=== PATIENT | female | born 1960 | race African-American/Black ===

== ENCOUNTER 2016-07-26 13:12 | Inpatient (IN) ==
--- NOTE | 2016-07-26 13:58 | Emergency Department Note ---
Arrival - Arrival Chief Complaint: Extremity Problem Stated Complaint: no feeling in left foot ED Nursing Triage Note: C/O COLD AND NUMB LEFT LOWER EXTREMITY WITH ONSET 2 DAYS AGO. PT STATES SHE WAS SEEN IN ED ON WEDNESDAY. COULD NOT LOCATE PULSE IN TRIAGE Mode of Arrival: Wheelchair Limitations: No Limitations Source: Patient - History of Present Illness HPI Narrative: This 54-year-old black female presents 36 hours post last visit to our ER. At that time I evaluated her for possible left lumbar radiculopathy just hours after the patient was given the same diagnoses at [facility]. At the time of my evaluation the patient was quite hysterical with little reasonable history obtained on that visit with concern her emotional state was secondary to medications given at [facility] or illicit drug use. At that time, evaluation of the leg was gross with the only observations made, being the leg to the foot was warm with motor activity intact. Because of the patient's kicking and screaming at the time of exam, evaluation of the pulses was impossible. Currently she complains of numbness and coolness in the left lower leg and foot with inability to move the foot or walk. She is in no acute medical distress currently and is quite calm emotionally on this visit. Onset (ago): day(s) (patient presents 3 days post-onset of symptoms) Consistency: constant Date of Last Menstrual Period: MENAPAUSE Allergies/Adverse Reactions: Allergies Allergy/AdvReac Type Severity Reaction Status Date / Time No Known Allergies Allergy Unverified 07/24/16 23:28 Home Medications: Home Medications Medication Instructions Recorded Confirmed Type Indomethacin Cap [Indocin Cap] 25 mg PO TID #30 capsule 07/25/16 07/26/16 Rx Tizanidine HCl [Zanaflex] 2 mg PO Q6H #40 capsule 07/25/16 07/26/16 Rx predniSONE TAB [PredniSONE] 20 mg PO DAILY #15 tablet 07/25/16 07/26/16 Rx Hydrocodone/Acetaminophen 1 each PO Q4H PRN 07/26/16 07/26/16 History [Hydrocodon-Acetaminophen 5-325] Review of System - Review of System 12 point system: reviewed and no additional remarkable complaints except as stated - Review of System Constitutional: Present: as per HPI Musculoskeletal: Present: as per HPI Medical,Surgical,& Family Hx - Family History Family History: Reports;: Family Cancer, Family Diabetes, Family Heart Disease, Family Hypertension, Family Stroke - Social History Smoking Status: Never smoker Frequency of Alcohol Use: None Type of Drug Use: None Exam Physical Examination: GENERAL: Obese black female in no acute distress. HEENT: Normocephalic. No trauma. Moist mucous membranes. EOMI. PERRLA. NECK: Supple. No adenopathy. CARDIAC: Regular. No murmurs. CHEST: Clear to auscultation. No respiratory distress. ABDOMEN: Soft. Nontender. Active bowel sounds. EXTREMITIES: No trauma. No pedal edema. Reduced pulses and coolness bilaterally to both lower extremities. Left foot does appear to be mottled with no capillary refill and inability to move the foot on command SKIN: No diaphoresis. No rash. NEURO: Alert. Oriented 3. Motor, sensory, vibratory intact. No focal deficits. Vital Signs: Vital Signs Temperature 97.5 F L 07/26/16 13:30 Pulse Rate 109 H 07/26/16 17:00 Respiratory Rate 20 07/26/16 17:00 Blood Pressure 126/94 07/26/16 17:00 O2 Sat by Pulse Oximetry 100 07/26/16 17:00 Course - Reevaluation(s) Reevaluation #1: Patient advised of need for surgical intervention for arterial occlusive disease of the left leg - Consultations Consultation #1: Patient seen by both Dr. reed and Dr. Farfan who will admit the patient for surgical intervention of the left lower extremity arterial occlusive disease. Results - Labs CBC & BMP: 07/26/16 14:19 07/26/16 14:19 Labs: I have reviewed the laboratory and noted the elevated white blood cell count, the elevated LFTs, and the greatly elevated total CK. Likewise on urine exam was noted hematuria as well as positivity for opiates, cocaine, and THC on UDS. - Diagnostic Findings Procedure: CT: image reviewed by me, report reviewed by me (CTA left lower extremity reveals near occlusive thrombus of the left common and external iliacs.) Disposition Clinical Impression: left lower extremity arterial occlusion Case discussed with: patient, patient's family Disposition: Still a Patient Condition: Guarded Time of Disposition: 17:32
[2016-07-26 14:39] LABS: Basophils % 0.1 % (0.0-0.8); Hematocrit 50.1 VOL% (35.7-47.0); Hemoglobin 17.3 GM/DL (12.0-16.0); Immature Granulocytes % 0.4 %; Immature Granulocytes Absolute 0.06 #; Mean Corpuscular HGB Conc 34.5 GM/DL (32-36); Mean Corpuscular Hemoglobin 31 PG (27-34); Mean Platelet Volume 10.4 FL (9.6-12.0); Monocytes # 1.5 10*3/uL (0.11-0.8); Monocytes % 10.4 % (1.7-12.7); Neutrophils # 10.4 10*3/uL (1.4-7.4); Neutrophils % 75.1 % (38.7-73.9); Platelet Count 183 10*3/uL (130-400); Red Blood Count 5.63 10*6/uL (3.8-5.5); Red Cell Distribution Width 14.2 % (9.3-17.3); White Blood Count 13.9 10*3/uL (4.5-13.71)
[2016-07-26 14:49] LABS: INR 1.3; PT Patient Result 13.4 SECS; Partial Thromboplastin Time 29.7 SECS (0-40)
[2016-07-26 15:43] LABS: Apearance,Urine CLOUDY (Clear); Bilirubin,Urine Negative (Negative); Blood, Urine Large mg/dL (Negative); Glucose,Urine (UA) Negative (Negative); Ketones,Urine Negative (Negative); Nitrite,Urine Negative (Negative); Protein,Urine >=500 MG/DL; RBC,Urine 6 /HPF (0-4); Urine Color Yellow (Yellow); Urine Specific Gravity 1.049 (1.001-1.035); Urine Urobilinogen < 2.0 EU/DL (0.2-1.0); WBC,Urine 7 /HPF (0-6)
[2016-07-26 15:48] LABS: Barbiturates Screen,Urine Negative (Negative); Benzodiazepines Screen,Urine Negative (Negative); Cannabinoid Screen,Urine Positive (Negative); Opiate Screen,Urine Positive (Negative); Phencyclidine Screen,Urine Negative (Negative)
[2016-07-26 15:51] LABS: Alanine Aminotransferase 184 U/L (13-56); Albumin 1.6 G/DL (3.4-5.0); Alkaline Phosphatase 105 U/L (45-117); Aspartate Amino Transferase 667 U/L (0-37); Bilirubin,Total < 0.39 MG/DL (0.2-1.0); Blood Urea Nitrogen 39 MG/DL (7-18); Calcium 7.6 MG/DL (8.5-10.1); Glucose 102 MG/DL (74-106); Osmolality,Calculated 274.4 MOS/KG (273-304); Potassium 4.7 MMOL/L (3.5-5.1); Sodium 133 MMOL/L (136-145); Total Protein 6.1 G/DL (6.4-8.3)
[2016-07-26 15:52] LABS: Troponin I Only < 0.015 NG/ML (0.00-0.045)
--- NOTE | 2016-07-26 16:12 | CT Report ---
CT angio abdomen/femoral Indication: Cold left foot. CT ANGIOGRAM ABDOMINAL AORTA WITH BILATERAL LOWER EXTREMITY RUNOFF DLP: 799 mGy*cm Comparison: None. Technique: Axial thin cut CT images were obtained from the dome of the diaphragm through the feet during the arterial phase of contrast injection. 3-D vascular MIPS reconstructions and multiplanar reformats were evaluated. Omnipaque 350, 120 cc administered. Arteriogram: The aorta, right common and external iliac, right femoral, popliteal and tibioperoneal system is widely patent. There is an eccentric filling defect within the distal left common iliac and proximal external iliac artery with some fluoroscopy the periphery of the thrombus. Left common femoral and SFA are patent to Guzman's canal. At Guzman's canal, there is abrupt termination of flow in the left SFA with occlusion of the popliteal artery noted. Mid calf, reconstitution of the posterior tibialis arteries noted although the contributing vessels are not identified. The anterior tibialis and peroneal arteries do not opacify. Abdomen: Normal heart size. Clear lung bases. Gallbladder is thickwalled and edematous appearing. Liver is hypodense. Spleen, pancreas, adrenal glands and kidneys appear unremarkable. There may be a nonobstructing 4 mm left kidney stone present. No bowel obstruction. Pelvis: Uterus is enlarged with a mass in the right side measuring 68 x 56 mm. Urinary bladder and rectosigmoid colon are within normal limits. Impression: 1. Near occlusive thrombus within the left common iliac and external iliac arteries. Left common femoral artery and SFA are patent. At Guzman's canal, occlusion of the distal SFA and popliteal artery noted with severely limited reconstitution of the left posterior tibialis artery mid calf. 2. Gallbladder wall thickening and edema, suspicious for cholecystitis. 3. Fatty infiltration of liver. 4. Possible nonobstructing left kidney stone. PROCEDURE INTERPRETED AT [facility] DEPARTMENT OF RADIOLOGY Final Report Signed by: Bernardo Hinton M.D.
[2016-07-26] MEDS ORDERED: HYDROmorphone 2 MG/1 ML VIAL IV STA (16:24)
[2016-07-26] MEDS ORDERED: ONDANSETRON 4 MG/2 ML VIAL IV STA (16:24)
[2016-07-26] MEDS ORDERED: HYDROmorphone 2 MG/1 ML VIAL ONE ×2 (16:34→20:13)
[2016-07-26] MEDS ORDERED: ONDANSETRON 4 MG/2 ML VIAL ONE (16:35)
--- NOTE | 2016-07-26 16:42 | EKG Report ---
Stationary ECG Study [facility] ER Test Date: 07/26/2016 4:40:25 PM Pat Name: KELLEN MARLOW Department: Room: 129 Gender: F Design Project Manager: : 1960 Requested by: Channing Adames Order Number: [id number] Jocelyn MD: ROBERT PAREDES Intervals [place] Rate: 86 P: 63 [place]: 120 QRS: 48 QRSD: 78 T: -9 QT: 336 QTc: 380 Interpretive Statements SINUS RHYTHM Electronically Signed On 07-27-16 12:32:17 DIRECTOR [employer]IENT [employer]CIAL SERVICES by ROBERT PAREDES [email or web address]
--- NOTE | 2016-07-26 17:02 | General Surg History&Physical ---
Assessment and Plan (1) Peripheral arterial occlusive disease Status: Acute Assessment and plan: This patient appears to have acute limb ischemia of the left foot. She has an occlusion at Guzman's canal with minimal reconstitution in her above ankle posterior tibial artery. There is also an occlusive process in the common iliac artery that reconstitutes in the external iliac artery above the inguinal ligament. The patient has no motor or sensory function in her foot and I have discussed this all with Dr. Farfan who is planning on coming to see the patient shortly. I'm going to give her a heparin bolus in the ER 80 units per kilogram to prevent progression of her ischemic changes and her arterial clot disease. I will follow up with Dr. Farfan after he sees the patient regarding any further plans of care. The dilemma will be whether to attempt revascularization of her foot given that she has such advanced ischemic changes. The patient did have a U tox is positive for cocaine and this certainly could've contributed to her arterial ischemic process. (2) Thickening of wall of gallbladder Status: Acute Assessment and plan: The patient does also have thickening of her gallbladder wall and abnormal LFTs but she is completely nontender on examination. With lack of any clinical features to suggest cholecystitis, we will just watch this for now she may need to have this addressed if she develops symptoms. We will treat her with antibiotics in the meantime to cover any subclinical infection here. There are no gallstones on her CT scan. I wonder if this could be part of a cocaine- induced vasospasm that has caused ischemia to the gallbladder. We will watch this for now. History of Present Illness Chief complaint: left foot pain History of present illness: Ms. Velasquez is a 55 year old female with no significant past medical or surgical history who presents to the hospital with about 36 hour history of worsening left leg pain. The pain started in her left buttock and radiated down her leg and initially she was seen and diagnosed with sciatica or lumbar radiculopathy. She went to [facility] on Wednesday earlier in the day and then came to [facility] later that day. Yesterday morning she developed pain in her left foot and she developed numbness and tingling at that time. She stayed at home yesterday but presented back to the ER today for evaluation. She states that she cannot move her foot now and she has no sensation when being examined but she has burning type nerve pain all across her foot and in her lower leg. She was evaluated in the ER with lab work as well as CT angiogram which revealed occlusion of the common iliac just proximal to the bifurcation of the internal and a sternal iliac arteries with reconstitution of the external iliac artery above the inguinal ligament. There is then also an abrupt cutoff at Guzman's canal with minimal reconstitution in the posterior tibial artery above the ankle. The patient is afebrile. An EKG was obtained and demonstrates sinus rhythm. There is no arrhythmias seen. The patient's urine tox screen was positive for cocaine. She denies any drug use other than marijuana couple weeks ago and denies any tobacco use. The patient was noted to have a transaminitis and thickening of her gallbladder wall on CT scan but she has no abdominal pain, nausea, or vomiting whatsoever. Home Medications Medication Instructions Recorded Confirmed Type Indomethacin Cap [Indocin Cap] 25 mg PO TID #30 capsule 07/25/16 07/26/16 Rx Tizanidine HCl [Zanaflex] 2 mg PO Q6H #40 capsule 07/25/16 07/26/16 Rx predniSONE TAB [PredniSONE] 20 mg PO DAILY #15 tablet 07/25/16 07/26/16 Rx Hydrocodone/Acetaminophen 1 each PO Q4H PRN 07/26/16 07/26/16 History [Hydrocodon-Acetaminophen 5-325] Allergies Allergy/AdvReac Type Severity Reaction Status Date / Time No Known Allergies Allergy Unverified 07/24/16 23:28 Medical,Surgical,& Family Hx - Family History Family History: Reports;: Family Cancer, Family Diabetes, Family Heart Disease, Family Hypertension, Family Stroke - Social History Smoking Status: Never smoker Frequency of Alcohol Use: None Type of Drug Use: None Exam - Constitutional Vitals: Period Temp Pulse Resp BP Sys/Cuello Pulse Ox Last 24 Hr 97.5 F 80-110 16-20 127-164/98-127 97-100 General appearance: no acute distress, over weight - Head Head exam: Present: normal inspection, normocephalic - Eye Eye exam: Present: EOMI Pupils: Present: MATTIE - ENT ENT exam: Present: normal exam Mouth exam: Present: normal external inspection, normal voice - Neck Neck exam: Present: normal inspection, trachea midline - Respiratory Respiratory exam: Present: clear to auscultation bilaterally. Absent: accessory muscle use, chest wall tenderness - Cardiovascular Cardiovascular exam: Present: tachycardia. Absent: irregular rhythm, systolic murmur - GI/Abdominal GI/Abdominal exam: Present: hypoactive bowel sounds, soft. Absent: ascites, distended, Lacy's sign, tenderness, rebound - Extremities Exam Extremities exam: Present: other (the left foot is cooler to the touch than the right foot. There is no appreciable capillary refill in the left foot. I have asked the patient multiple times to move her left foot and she states she is trying but she doesn't even have any movement with gravity neutralized. She has no sensation until about her tibial tuberosity level and that is where her leg also gets warmer to the touch. She has diminished pulses in the right foot but she does have flow into the right foot. There are no changes of chronic peripheral arterial disease on exam.) - Back Exam Back exam: Present: normal inspection - Neurological Exam Neurological exam: Present: alert, oriented X3 Speech: Present: normal - Skin Skin exam: Present: normal color, warm - Constitutional Constitutional: Present: as per HPI - EENT Nose, mouth and throat: Present: as per HPI - Cardiovascular Cardiovascular: Present: as per HPI - Respiratory Respiratory: Present: as per HPI - Gastrointestinal Gastrointestinal: Present: as per HPI - Genitourinary Genitourinary: Present: as per HPI - Musculoskeletal Musculoskeletal: Present: as per HPI - Neurological Neurological: Present: as per HPI - Endocrine Endocrine: Present: as per HPI Hematologic/Lymphatic: Present: as per HPI Results - Labs CBC & BMP: 07/26/16 14:19 07/26/16 14:19 - Diagnostic Findings Procedure: CT: image reviewed by me, report reviewed by me
[2016-07-26] MEDS ORDERED: ceFAZolin 2,000 MG in SODIUM CHLORIDE 0.9% 100 ML IV ONE (17:25)
[2016-07-26] MEDS ORDERED: ceFAZolin 1,000 MG VIAL ONE (17:27)
[2016-07-26] MEDS ORDERED: HYDROmorphone 2 MG/1 ML VIAL IV PRN ×2 (17:28→20:06)
[2016-07-26] MEDS: LACTATED RINGERS 1,000 ML IV SCH ×2 (17:39→21:31)
--- NOTE | 2016-07-26 18:02 | General Surg History&Physical ---
Assessment and Plan (1) Ischemic leg Status: Acute Assessment and plan: Mrs. Velasquez appears to have thrombus in the left common iliac artery and the popliteal was severely ischemic left foot. Abdomen recommending a left femoral embolectomy with fasciotomies as I detect there is already's edema of the lower leg. I have explained to her and family very clearly that time she may end up having have an amputation but this is her best chance for limb salvage. She understands that several other operations may become necessary in the future also that if I'm unable to obtain flow from the common iliac artery a femoral- femoral bypass may be most appropriate she agrees with these plans and we will proceed this evening. Current Visit: Yes History of Present Illness Chief complaint: acute ischemia left leg/foot History of present illness: Ms. Velasquez is a 55 year old female Ms. Velasquez is a 52-year-old woman who comes to the emergency room with an acutely ischemic left lower leg and foot. Appears that she awakened early on Wednesday morning with severe pain in her left leg was evaluated in both emergency room's and [facility] and felt to have a radiculopathy she's had continued pain and now has numbness is been unable to walk since Wednesday as come in and is been found to have an acutely ischemic left lower leg. CTA has been done and shows what appears to be thrombus of the common iliac artery and popliteal artery notably on the patient's other side. Does not appear to have any significant thrombus with fairly normal vessels. Also in general there is no significant calcifications or signs of atherosclerotic disease in the aortal iliac or femoral systems. The patient has no history of known cardiac disease or cardiac arrhythmias. She is a nonsmoker does not have diabetes hypertension and prior to the current illness was on no medications. At this time she has a paresthetic left foot and a very painful swollen left calf. Home Medications Medication Instructions Recorded Confirmed Type Indomethacin Cap [Indocin Cap] 25 mg PO TID #30 capsule 07/25/16 07/26/16 Rx Tizanidine HCl [Zanaflex] 2 mg PO Q6H #40 capsule 07/25/16 07/26/16 Rx predniSONE TAB [PredniSONE] 20 mg PO DAILY #15 tablet 07/25/16 07/26/16 Rx Hydrocodone/Acetaminophen 1 each PO Q4H PRN 01/29/17 01/29/17 History [Hydrocodon-Acetaminophen 5-325] Allergies Allergy/AdvReac Type Severity Reaction Status Date / Time No Known Allergies Allergy Unverified 07/24/16 23:28 Medical,Surgical,& Family Hx - Family History Family History: Reports;: Family Cancer, Family Diabetes, Family Heart Disease, Family Hypertension, Family Stroke - Social History Smoking Status: Never smoker Frequency of Alcohol Use: None Type of Drug Use: None Exam - Constitutional Vitals: Period Temp Pulse Resp BP Sys/Cuello Pulse Ox Last 24 Hr 97.5 F 80-110 16-20 126-164/93-127 97-100 General appearance: normal weight, severe distress - Head Head exam: Present: normal inspection - Eye Eye exam: Present: EOMI Pupils: Present: MATTIE - ENT ENT exam: Present: normal external ear exam Mouth exam: Present: normal external inspection - Neck Neck exam: Present: normal inspection - Respiratory Respiratory exam: Present: clear to auscultation bilaterally - Cardiovascular Cardiovascular exam: Present: RRR - GI/Abdominal GI/Abdominal exam: Present: normal bowel sounds, soft - Expanded Left Lower Neuro vascular tendon exam: Present: decreased fine/light touch, extremity cold to touch, foot drop (left foot is very cool says she is unable have been feeling a removed foot itself she has great deal of pain in the calf with motion foot actually show mottling.), motor deficit, pulse deficit, significant pain with passive ROM of distal joint Gait: Present: not tested/not observed - Neurological Exam Neurological exam: Present: alert, oriented X3 Speech: Present: normal - Skin Skin exam: Present: normal color, cyanosis (mottling and cyanosis of the left foot she is actually has reasonable warmth to the level of the ankle), mottled Results - Labs CBC & BMP: 07/26/16 14:19 07/26/16 14:19
[2016-07-26] MEDS ORDERED: THROMBIN TOPICAL (RECOMBINANT) 5,000 UNIT VIAL TOP ONE (18:08)
[2016-07-26] MEDS ORDERED: HEPARIN 5,000 UNIT/1 ML VIAL ONE ×2 (18:08→18:11)
[2016-07-26] MEDS ORDERED: BUPIVACAINE 0.5% 50 ML VIAL ONE (18:08)
[2016-07-26] MEDS ORDERED: HEPARIN 5,000 UNIT/1 ML VIAL IV ONE (18:10)
[2016-07-26] MEDS ORDERED: ROCURONIUM 100 MG/10 ML VIAL IV ONE (18:46)
[2016-07-26] MEDS ORDERED: PHENYLEPHRINE 1 MG/10 ML SYRINGE IV ONE (18:46)
[2016-07-26] MEDS ORDERED: LIDOCAINE 2% 5 ML VIAL ONE (18:46)
[2016-07-26] MEDS ORDERED: SODIUM BICARBONATE 50 MEQ/50 ML VIAL IV ONE ×2 (18:46→20:14)
[2016-07-26] MEDS ORDERED: ESMOLOL 100 MG/10 ML VIAL IV ONE (18:46)
[2016-07-26 19:32] LABS: Apearance,Urine CLOUDY (Clear); Bilirubin,Urine Negative (Negative); Blood, Urine Large mg/dL (Negative); Glucose,Urine (UA) Negative (Negative); Ketones,Urine Negative (Negative); Nitrite,Urine Negative (Negative); Protein,Urine >=500 MG/DL; RBC,Urine 4 /HPF (0-4); Urine Color Yellow (Yellow); Urine Specific Gravity 1.053 (1.001-1.035); Urine Urobilinogen < 2.0 EU/DL (0.2-1.0); WBC,Urine 4 /HPF (0-6)
[2016-07-26] MEDS ORDERED: NALOXONE 0.4 MG/ML VIAL IV PRN (20:01)
[2016-07-26] MEDS ORDERED: ONDANSETRON 4 MG/2 ML VIAL IV PRN (20:06)
--- NOTE | 2016-07-26 20:09 | Anesthesia ---
Anesthesia Post OP - Post Ansesthetic Evaluation Patient seen in post op: Yes Resp: within normal limits CV: within normal limits Mental: within normal limits Temp: within normal limits [id number]: within normal limits Nausea and Vomiting: within normal limits Pain: within normal limits
[2016-07-26] MEDS ORDERED: MIDAZOLAM 2 MG/2 ML VIAL ONE (20:13)
[2016-07-26] MEDS ORDERED: fentaNYL 100 MCG/2 ML VIAL ONE (20:13)
[2016-07-26] MEDS ORDERED: SEVOFLURANE 1 UNIT/15 MINUTE INH ONE (20:13)
[2016-07-26] MEDS ORDERED: SODIUM CHLORIDE 0.9% 1,000 ML IV ONE (20:13)
[2016-07-26] MEDS ORDERED: LACTATED RINGERS 1,000 ML IV ONE (20:13)
[2016-07-26] MEDS: HYDROmorphone PCA 30 MG/30 ML SYRINGE IV SCH (22:20)
[2016-07-26] MEDS ORDERED: ASPIRIN CHEW 81 MG TABLET PO ONE (22:30)
[2016-07-26] MEDS ORDERED: CLOPIDOGREL 75 MG TABLET PO ONE (22:30)
--- NOTE | 2016-07-27 00:14 | Operative Note ---
DATE: 07/26/2016 SURGEONS: Dr. Farfan and Dr. Kirkland ANESTHESIA: General endotracheal by Shiv PREOPERATIVE DIAGNOSIS: ACUTE ISCHEMIC LEFT LEG WITH ILIAC AND POPLITEAL THROMBOSIS AND EMBOLUS. POSTOPERATIVE DIAGNOSIS: EMBOLIZATION AND THROMBOSIS OF THE LEFT POPLITEAL AND LEFT COMMON ILIAC AR TERIES. OPERATION PERFORMED: LEFT FEMORAL EMBOLECTOMY AND THROMBECTOMY WITH LOWER LEG FASCIOTOMY. INDICATIONS: Ms. Velasquez is a 55-year-old woman who has developed acute thrombus involving the left common iliac artery and the left popliteal arteries with an acutely ischemic left foot. I have rec ommended a femoral embolectomy. I have explained the alternatives, risks and complications, which s he understands and accepts. DESCRIPTION OF THE PROCEDURE: After the induction of general endotracheal anesthesia, the patient's abdomen, groins and entire left leg to the foot were prepped with ChloraPrep, groin areas were drap ed with Ioban and the foot placed in isolation bag. I made an incision over the femoral canal, this through the subcutaneous tissues down to the common femoral artery. I separately controlled the co mmon femoral, superficial and profunda femoris vessels with vessel loops. The patient had previousl y received 5000 units of intravenous heparin. I made a longitudinal arteriotomy over the bifurcatio n of the common femoral artery noting some proximal blood flow, minimal back bleeding from the super ficial and the profunda. I initially performed embolectomy and thrombectomy of the distal vessel go ing down the superficial femoral artery with a #4 and #3 Amie. I was able to get the #3 Maie down approximately to the level of the ankle and it returned with thrombus and what appears to be em bolus as well and better back bleeding. This was then flushed with heparinized saline and controlle d with vessel loop. In similar fashion, I performed thrombectomy of the profunda femoris artery get ting clot from it and good back bleeding. This was flushed with heparinized saline as well. I then used #4 Amie and performed proximal embolectomy returning with a large amount of white clot and marked arterial flow at this level. I did not encounter anything that felt like atherosclerotic leann que or any type of obstruction with the Amie catheter. With the flow improved to the arteriotomy I then closed the arteriotomy with a running 5-0 Prolene suture. Flow was initiated in to the prof unda and then in to the superficial femoral Doppler signals were quite good in all 3 vessels. I not ed that prior to beginning the procedure, there was a good bit of tightness in the anterior compartm ent and I had discussed with the patient going ahead with fasciotomies as this ischemic episode had been going on for approximately 48 hours. I therefore made an anterior lateral incision and opened the anterior and lateral compartments getting good bulging of viable muscle and in a similar fashion medial incision was made and opening the deep and posterior compartment as well. Again, the muscle appeared to be viable, the foot appeared to start pinking up and improving the perfusion although I could not palpate pedal pulses at this level. At this point, I felt that we had accomplished our goal of restoring flow into the lower leg and per forming the fasciotomies. Hemostasis was good. The groin incision was irrigated and closed with tw o layers of running 2-0 Monocryl and skin clips. The fasciotomy sites were covered with Adaptic flu ffs and cast padding. Blood loss is estimated at 150 mL. Sponge, needle and instrument counts [place] ect and the patient was taken to recovery in stable condition.
[2016-07-27] MEDS ORDERED: KETOROLAC 30 MG/1 ML VIAL IV ONE (01:22)
--- NOTE | 2016-07-27 01:26 | Event Note ---
All due to under control pain. Patient reports continued pain foot burning toes and up into calf shows no pedal pulses has been the liver flow in the popliteal fasciotomy site showed good perfusion leg is warm to the ankle. I don 't believe there is anything further I can do to restore perfusion this late in the ischemic process. I'll try Toradol for pain control continued on [employer] limb salvage is very unlikely
[2016-07-27 05:12] LABS: Basophils % 0.2 % (0.0-0.8); Hematocrit 47.1 VOL% (35.7-47.0); Immature Granulocytes % 0.6 %; Immature Granulocytes Absolute 0.11 #; Lymphocytes # 1.4 10*3/uL (1.4-4.0); Lymphocytes % 7.9 % (21.3-54.2); Mean Corpuscular Hemoglobin 31 PG (27-34); Mean Corpuscular Volume 90.8 FL (87-102); Mean Platelet Volume 10.9 FL (9.6-12.0); Monocytes # 1.8 10*3/uL (0.11-0.8); Monocytes % 10.6 % (1.7-12.7); Neutrophils # 13.8 10*3/uL (1.4-7.4); Neutrophils % 80.7 % (38.7-73.9); Platelet Count 166 10*3/uL (130-400); Red Blood Count 5.19 10*6/uL (3.8-5.5); Red Cell Distribution Width 14.2 % (9.3-17.3); White Blood Count 17.1 10*3/uL (4.5-13.71)
[2016-07-27 06:09] LABS: Calcium 7.2 MG/DL (8.5-10.1); Potassium 4.8 MMOL/L (3.5-5.1)
--- NOTE | 2016-07-27 07:11 | Operative Note ---
Date of procedure: 07/27/16 Pre-op diagnosis: left leg ischemia Post-op diagnosis: same Procedure: This is a first mate note for a femoral embolectomy performed by Dr. Farfan on 07/26/2016. I served as a first mate for the femoral artery cutdown and proximal and distal embolectomies. There is a white clot removed from the iliac system and there was adequate inflow improved outflow after the embolectomies were performed. See Dr. Serrano's note for full details. Surgeon / Physician: Isaias Farfan System Integration Engineer: Amado Kirkland Results - Labs CBC & BMP: 07/27/16 04:00 07/27/16 04:48 Discharge Plan - Discharge Medications No Action Tizanidine HCl [Zanaflex] 2 mg PO Q6H #40 capsule Hydrocodone/Acetaminophen [Hydrocodon-Acetaminophen 5-325] 1 each PO Q4H PRN PRN Reason: Pain Indomethacin Cap [Indocin Cap] 25 mg PO TID #30 capsule predniSONE TAB [PredniSONE] 20 mg PO DAILY #15 tablet - Follow Up or Referral - Forms/Instructions
[2016-07-27] MEDS: LACTATED RINGERS 1,000 ML IV SCH ×5 (08:37→20:49)
[2016-07-27] MEDS: KETOROLAC 15 MG/1 ML VIAL IV SCH ×3 (08:38→19:56)
[2016-07-27] MEDS: ONDANSETRON 4 MG/2 ML VIAL IV PRN (08:38)
[2016-07-27] MEDS: CLOPIDOGREL 75 MG TABLET PO SCH (08:38)
[2016-07-27] MEDS: ASPIRIN CHEW 81 MG TABLET PO SCH (08:38)
--- NOTE | 2016-07-27 09:06 | Event Note ---
Mrs. Velasquez continues to have severe left foot pain with paresthetic nonmobile foot is cool with no pulses the leg is actually warm to the ankle the fasciotomy sites looked good with adequate perfusion she's got a good Doppler flow in her popliteal artery behind the knee. At this point labs look reasonable platelet count is normal and creatinine are good has good urine output but severe uncontrollable pain. I don't believe that I have reasonable hopefully duration even considering distal thrombolyzes in view of the prolonged nature of her ischemia prior to arriving here yesterday evening. I discussed this with Mrs. Velasquez and then with her sister and about telephone. I've explained what my thoughts are options that are available that I think that we are inevitably lead going toward a below-knee amputation. I have explained the potential of not healing requiring higher amputation of prolonged healing give it does do well. This point was Ron understands and does wish to go ahead with amputation I think that's her best choice of relieving her of the pain and getting back to life as quickly as possible. I will continue evaluation with echocardiogram and hematology consultation to try to determine the source of this embolus or thrombus as there does not appear to be any significant atherosclerotic vascular disease.
--- NOTE | 2016-07-27 09:36 | Oncology Progress Note ---
Oncology Subjective PN Interval history: I am seeing this patient briefly. She is going for an amputation of the lower extremity because of extensive damage secondary to clotting. She has already undergone thrombectomy and still has no pulse in her left foot. She has no prior history of thromboembolic phenomena. Her family history is positive for stroke in her mother. This is not a complete consult note. Studies that I am ordering now include an antiphospholipid antibody, lupus anticoagulant, prothrombin 60329 gene mutation, factor V Leiden, and homocystine level. It will not do any good order protein C or protein S currently because of her clotting which can affect the results. I will follow her with you. Thank you for consulting me. Formal consult note to be done later. Exam - Constitutional Vitals: Period Temp Pulse Resp BP Sys/Cuello Pulse Ox Last 24 Hr 96.8 F-98.1 F 0-115 11-26 95-179/44-128 95-99 Results - Labs CBC & BMP: 07/27/16 04:00 07/27/16 04:48
[2016-07-27] MEDS ORDERED: ACETAMINOPHEN 500 MG TABLET PO ONE (09:51)
[2016-07-27] MEDS ORDERED: GABAPENTIN 400 MG CAPSULE PO ONE (09:52)
[2016-07-27 10:44] LABS: PT Patient Result 10.4 SECS; Partial Thromboplastin Time 27.8 SECS (0-40)
[2016-07-27] MEDS ORDERED: HEPARIN/NACL 0.9% 2 UNITS/ML 2,000 ML IV ONE (13:28)
[2016-07-27] MEDS ORDERED: ENOXAPARIN 40 MG/0.4 ML SYRINGE SUBCUT SCH (13:59)
--- NOTE | 2016-07-27 14:00 | Inventional Radiology Consult ---
Assessment and Plan - Time spent with patient Time spent with patient: Greater than 30 minutes (1) Ischemic leg Problem details: pulseless left foot despite surgical thrombectomy Status: Acute Assessment and plan: Plan for percutaneous arteriogram and catheter based thrombectomy/thrombolysis as attempt for salvage therapy. All risks were discussed with the patient/ family and all questions were answered to their satisfaction. Current Visit: Yes (2) Peripheral arterial occlusive disease Problem details: arterial thrombus on CTA, no significant improvement in the left foot pulses and motor/sensation Status: Acute Assessment and plan: Salvage therapy with thrombectomy/thrombolysis will be attempted. The patient and family were counseled that amputation is likely still going to be required with the hope that thrombolysis may reduce the amount of amputation needed. Current Visit: Yes IR Consult - Data of Consult Patient: new to practice Consult date: 07/27/16 Requesting Physician: Isaias Farfan - Consult Narrative Reason for consult: pulseless, cold left foot History of present illness: Ron is a 55 year old F with no significant past medical history who presented with acute loss of pulse within the left lower extremity with worsening pain and paresthesia. Initial CT imaging from the emergency room demonstrated clot within the left common femoral and popliteal arteries. She was taken for emergent surgery with surgical thrombectomy with some improvement however, the left foot has remained pulseless with no return of motor function or sensation. Currently the options are for agitation versus last efforts to recannulate the arterial supply via catheter directed thrombectomy/ thrombolysis. The risks were discussed with the patient and family including significant hemorrhage related to the TPA administration. All questions were answered and the patient wishes to proceed. Arteriogram with thrombolysis catheter placement will be performed today and rechecked tomorrow. Review of systems otherwise negative. - Home Medications and Allergies Home Medications: Home Medications Medication Instructions Recorded Confirmed Type Indomethacin Cap [Indocin Cap] 25 mg PO TID #30 capsule 07/25/16 07/26/16 Rx Tizanidine HCl [Zanaflex] 2 mg PO Q6H #40 capsule 07/25/16 07/26/16 Rx predniSONE TAB [PredniSONE] 20 mg PO DAILY #15 tablet 07/25/16 07/26/16 Rx Hydrocodone/Acetaminophen 1 each PO Q4H PRN 07/26/16 07/26/16 History [Hydrocodon-Acetaminophen 5-325] Allergies/Adverse Reactions: Allergies Allergy/AdvReac Type Severity Reaction Status Date / Time No Known Allergies Allergy Unverified 07/24/16 23:28 12 point system: reviewed and no additional remarkable complaints except as stated Medical,Surgical,& Family Hx - Medical History Other: Comment Only: Miscellaneous Medical Problems (hx drug use == positive opiods , marijuana& cocaine in ER) - Surgical History Cardiac Surgeries: Comment Only: Cardiac Surgery (left fem. embolectomy&fasciotomy 07/26/16) - Family History Family History: Reports;: Family Cancer, Family Stroke Comment Only: Family Diabetes (Yes, mother), Family Heart Disease (Yes, mother& father-- mother had CABG), Family Hypertension (Yes, mother& father), Family Psychiatric Problems (father - bipolar depression) - Social History Smoking Status: Never smoker Frequency of Alcohol Use: None Type of Drug Use: None Exam - Labs CBC & BMP: 07/27/16 04:00 07/27/16 04:48 Lab Results: I have reviewed the past 24 hour labs Labs: INR 1.0 07/27/16 10:09 Image Studies: CT angiography reviewed - Constitutional Vitals: Period Temp Pulse Resp BP Sys/Cuello Pulse Ox Last 24 Hr 96.8 F-98.1 F 0-115 11-26 95-179/44-128 95-99 General appearance: over weight - Eye Eye exam: Present: EOMI - Respiratory Respiratory exam: Present: clear to auscultation bilaterally - Cardiovascular Cardiovascular exam: Present: regular rate and rhythm - Expanded Left Lower Lower leg exam: Present: swelling. Absent: full ROM, tenderness Foot/Toe exam: Present: swelling. Absent: full ROM Neuro vascular tendon exam: Present: foot drop, motor deficit, pallor, pulse deficit, sensory deficit - Neurological Exam Neurological exam: Present: alert, oriented X3 - Psychiatric Psychiatric exam: Present: normal affect, normal mood - Skin Skin exam: Present: normal color
[2016-07-27] MEDS ORDERED: MIDAZOLAM 2 MG/2 ML VIAL IV ONE (14:05)
[2016-07-27] MEDS ORDERED: fentaNYL 100 MCG/2 ML VIAL IV ONE (14:05)
[2016-07-27] MEDS ORDERED: DIAZEPAM 5 MG TABLET PO ONE (14:05)
[2016-07-27] MEDS ORDERED: MIDAZOLAM 2 MG/2 ML VIAL ONE (14:26)
[2016-07-27] MEDS ORDERED: HEPARIN DRIP 25,000 UNITS/500 ML PREMIX IV SCH ×2 (14:30→16:00)
--- NOTE | 2016-07-27 15:30 | ECHO Report ---
Carlene Velasquez Exam Date: 07/27/2016 09:24 Referring Physician: Technologist: Alysha Alvarez RDCS Age: 55 Ht (in): Wt (lb): Gender: F Exam Location: [facility] Echo Indications: Severe left foot pain, Left lower extremity arterial occlusive disease, Thrombus left common illiac artery BP: / HR: Rhythm: Sinus Technical Quality: Technically difficult study IMPRESSIONS Technically difficult study .Left ventricular ejection fraction is estimated at 60 %. Grade I/IV diastolic dysfunction (abnormal relaxation filling pattern), normal to mildly elevated filling pressures. The right ventricle is normal in size and function. The right atrium is mildly enlarged. Mild atrial enlargement in apical view (elongated LA). Morphologically normal mitral valve. Trace mitral valve regurgitation. Aortic valve sclerosis. No aortic valve regurgitation. Moderate tricuspid valve regurgitation. [id number]. Pulmonic valve not well visualized. Normal pericardium without effusion. Normal ascending aorta dimension. No LV or LA clot seen. MEASUREMENTS (Male / Female) Normal Values 2D ECHO LV Diastolic Diameter PLAX 4.3 cm 4.2 - 5.9 / 3.9 - 5.3 cm LV Systolic Diameter PLAX 2.6 cm LV Fractional Shortening PLAX 39.6 % IVS Diastolic Thickness 0.8 cm 0.6 - 1.0 / 0.6 - 0.9 cm LVPW Diastolic Thickness 0.8 cm 0.6 - 1.0 / 0.6 - 0.9 cm RV Internal Dim ED PLAX 2.1 cm Aortic Root Diameter 3.1 cm LA Systolic Diameter LX 3.8 cm 3.0 - 4.0 / 2.7 - 3.8 cm DOPPLER TR Peak Velocity 295.0 cm/s TR Peak Gradient 34.8 mmHg FINDINGS Left Ventricle Left ventricular ejection fraction is estimated at 60 Grade I/IV diastolic dysfunction (abnormal relaxation filling pattern), normal to mildly elevated filling pressures. %. Right Ventricle The right ventricle is normal in size and function. Right Atrium The right atrium is mildly enlarged. Left Atrium Mild atrial enlargement in apical view (elongated LA). Mitral Valve Morphologically normal mitral valve. Trace mitral valve regurgitation. Aortic Valve Aortic valve sclerosis. No aortic valve regurgitation. Tricuspid Valve Morphologically normal tricuspid valve. Moderate tricuspid valve regurgitation. [id number]. Pulmonic Valve Pulmonic valve not well visualized. Pericardium Normal pericardium without effusion. Aorta Normal ascending aorta dimension. Chris Plavac (Electronically Signed) Final Date: 27 July 2016 15:29
[2016-07-27] MEDS: ALTEPLASE 24 MG in SODIUM CHLORIDE 0.9% 480 ML IV SCH (15:37)
[2016-07-27] MEDS ORDERED: HEPARIN DRIP 25,000 UNITS/500 ML PREMIX IV ONE (15:43)
--- NOTE | 2016-07-27 16:09 | Post Interventional Procedure ---
Pre-op diagnosis: cold, pulseless left foot Post-op diagnosis: same Procedure: Left lower extremity angiography and Thrombolysis catheter placement within the left lower leg. Contrast: 100 mL Omni Flouroscopy: 12.2 min Radiologist: Wenceslao Carlos Anesthesia: local Specimens: none sent Estimated blood loss: minimal (5 mL) Complications: none Condition: stable Description/Findings: Pelvic arteriogram demonstrates the pelvic arteries to be widely patent. There is complete occlusion at the proximal popliteal artery with no significant reconstitution in the lower leg other than small collateral branches. The infusion catheter was placed within the distal posterior tibial artery. Right groin sheath was secured to the skin with a sterile Tegaderm and connected to heparin flush. Plan for recheck of the progress tomorrow. Assessment and Plan - Time spent with patient Time spent with patient: Greater than 30 minutes (1) Ischemic leg Problem details: pulseless left foot despite surgical thrombectomy Status: Acute Assessment and plan: Plan for percutaneous arteriogram and catheter based thrombectomy/thrombolysis as attempt for salvage therapy. All risks were discussed with the patient/ family and all questions were answered to their satisfaction. Current Visit: Yes (2) Peripheral arterial occlusive disease Problem details: arterial thrombus on CTA, no significant improvement in the left foot pulses and motor/sensation Status: Acute Assessment and plan: Salvage therapy with thrombectomy/thrombolysis will be attempted. The patient and family were counseled that amputation is likely still going to be required with the hope that thrombolysis may reduce the amount of amputation needed. Current Visit: Yes
--- NOTE | 2016-07-27 16:30 | Event Note ---
With further discussions with the family and Ms. Velasquez this point we elected to attempt arteriography and TPA infusion with Dr. Carlos has completed and she is undergoing TPA infusion of the right lower leg overnight. We're hopeful that this will give good clot lysis and restore perfusion of the entire right lower extremity follow her labs in the morning Dr. Calvert is evaluating her for possible coagulopathy I'll check and see what the echocardiogram showed.
[2016-07-27] MEDS ORDERED: hydrALAZINE 20 MG/1 ML VIAL ONE (16:35)
--- NOTE | 2016-07-27 16:43 | Interventional Radiology Rpt ---
IR angio extremity LT, IR TPA trans cath inf arterial Clinical Information: 55-year-old female with arterial thrombus formation and pulseless left lower of the status post surgical thrombectomy and continued pulseless left foot. Request is for attempt at catheter based thrombolysis of probable residual arterial thrombus within the left lower extremity versus other arterial injury causing loss of blood flow. Physician: Dr. Carlos Procedure: The patient was advised of the benefits, risks, and alternatives of the procedure and informed consent was obtained. A time out was performed with verification of the patient's name, MRN, site of procedure, and type of procedure to be performed. The patient was positioned in the supine position on the angiographic table. The site was prepped and draped in the usual sterile fashion. No anesthesia was used for the procedure. Patient was on Dilaudid [employer] pump throughout the procedure and was comfortable. A charge nurse radiograph reveals no relevant abnormality. 2% lidocaine was used for local anesthesia. The right common femoral artery was accessed with a microintroducer set. A short 0.018" wire was inserted and the needle was exchanged for a 4 Fr microintroducer sheath. The guidewire and dilator were removed and a 0.035" J-wire was advanced into the abdominal aorta. A 6 Fr sheath was placed over the wire. A 5F Omniflush catheter was inserted through the sheath and placed into the lower abdominal aorta. Aortography demonstrates normal distal aorta and bilateral common iliac arteries. The Omniflush catheter was then exchanged for a 5 Micronesian Coy catheter. The left superficial femoral artery was catheterized. A 6 Micronesian Balkan 30 cm sheath was placed into the contralateral external iliac artery. Runoff arteriogram demonstrates complete occlusion of the mid/distal popliteal artery likely due to acute/recurrent thrombus. Minimal geniculate branches are noted supplying some collateral flow to the lower leg. There is no significant reconstitution within the distal popliteal vessels. The popliteal artery was successfully catheterized and brief arteriogram demonstrates acute thrombus with minimal filling of small collateral branches. The Glidewire was advanced and the peroneal artery was catheterized. Repeat arteriogram demonstrates clot throughout the popliteal artery and minimal visualization of the proximal posterior tibial artery. The posterior tibial artery was subsequently catheterized to the ankle. Over the stiff Glidewire, the 5 Micronesian thrombolysis catheter was advanced and positioned throughout the area of acute/recurrent arterial thrombus. This was connected to TPA for overnight infusion. The right femoral sheath was secured to the skin using a sterile Tegaderm, with heparin flush attached. The patient tolerated the procedure well and was returned to the critical care unit in stable condition. EBL: < 5 mL. Complications: None. Fluoroscopy time: 12.2 minutes Conclusion: 1. Patent bilateral common iliac arteries. Patent left superficial femoral artery. 2. Completely occluded mid/distal popliteal artery likely due to acute recurrent arterial thrombus. Minimal collateral flow and reconstitution below the knee. 3. Successful catheterization of the distal posterior tibial artery with placement of a thrombolytic infusion catheter. Plan: The patient will be rechecked tomorrow for any improvement in arterial supply to the left foot. PROCEDURE INTERPRETED AT [facility] DEPARTMENT OF RADIOLOGY Final Report Signed by: Wenceslao Carlos
[2016-07-27] MEDS: hydrALAZINE 20 MG/1 ML VIAL IV PRN (16:50)
[2016-07-27] MEDS ORDERED: HydrOXYzine PAMOATE 25 MG CAPSULE PO STA (17:19)
[2016-07-27 17:24] LABS: INR 1.1; PT Patient Result 11.6 SECS
[2016-07-27] MEDS: SODIUM CHLORIDE 0.45% 1,000 ML IV SCH (18:13)
[2016-07-28] MEDS: hydrALAZINE 20 MG/1 ML VIAL IV PRN (00:04)
[2016-07-28] MEDS: HYDROmorphone PCA 30 MG/30 ML SYRINGE IV SCH ×3 (00:05→20:00)
[2016-07-28 01:21] LABS: Basophils % 0.2 % (0.0-0.8); Hematocrit 38.4 VOL% (35.7-47.0); Immature Granulocytes % 0.5 %; Immature Granulocytes Absolute 0.09 #; Lymphocytes # 1.5 10*3/uL (1.4-4.0); Lymphocytes % 8.8 % (21.3-54.2); Mean Corpuscular HGB Conc 33.9 GM/DL (32-36); Mean Corpuscular Hemoglobin 31 PG (27-34); Mean Platelet Volume 10.4 FL (9.6-12.0); Monocytes # 1.7 10*3/uL (0.11-0.8); Monocytes % 9.6 % (1.7-12.7); Neutrophils # 13.9 10*3/uL (1.4-7.4); Neutrophils % 80.9 % (38.7-73.9); Platelet Count 154 T/CUMM (130-400); Red Blood Count 4.22 MC/CUMM (3.8-5.5); Red Cell Distribution Width 14.4 % (9.3-17.3); White Blood Count 17.2 T/CUMM (4-12)
[2016-07-28 01:30] LABS: PT Patient Result 10.5 SECS; Partial Thromboplastin Time 30.3 SECS (0-40)
[2016-07-28 01:47] LABS: Potassium 4.8 MMOL/L (3.5-5.1)
[2016-07-28] MEDS: KETOROLAC 15 MG/1 ML VIAL IV SCH ×4 (02:32→19:59)
[2016-07-28] MEDS: LACTATED RINGERS 1,000 ML IV SCH ×4 (04:35→20:42)
[2016-07-28 05:23] LABS: PT Patient Result 10.1 SECS; PT Patient Result 10.4 SECS; Partial Thromboplastin Time 30.4 SECS (0-40)
[2016-07-28] MEDS: HydrOXYzine PAMOATE 25 MG CAPSULE PO PRN ×4 (07:30→21:59)
--- NOTE | 2016-07-28 08:00 | Oncology Consult Note ---
History of Present Illness History of present illness: Ms. Velasquez is a 55 year old female who has developed significant clots in her left leg and has now undergone TPA. She was initially scheduled for an amputation of the left lower extremity. She had undergone thrombectomy and there was still absence of pulse and circulation in the lower lip 'left' not lip extremity. However the decision was made to try TPA with clot lysis. I did question the patient prior to the procedure being done. She had no prior history of thromboembolic disease. Her family history is positive for a stroke in her mother but no other history of clotting disorder exists. Physical examination: General: The patient generally appears well-developed well-nourished and in no acute distress. Eyes: Lids and conjunctive are normal. ENT: Her oral mucosa and pharynx are normal. Her trachea is midline. She has no neck masses. Lungs: Breath sounds are normal without rubs, rales or rhonchi. There is symmetrical unlabored chest motion with respiration. Cardiovascular: Her heart rhythm is regular without murmur, gallop or rub. There is no jugular venous distention and she has no carotid bruits. Her left foot and leg are discolored and pulseless. Abdomen: She has no abdominal masses, organomegaly, distention, tenderness or ascites. Musculoskeletal: She has no focal muscle atrophy or bone or joint deformity. Neurologic: Cranial nerves II through XII are intact. There are no focal neurologic deficits. Nodes: I find no submandibular, cervical, supraclavicular or axillary adenopathy. Skin: The left lower extremity is discolored darkened. Otherwise I find no significant rashes or skin lesions. I have ordered coagulation studies on this patient. We will take some time with him to return. I will follow her with you. Family history: Negative for any significant coagulopathy. The patient's mother had heart trouble and suffered a stroke but I do not think this is indicative of some type of acquired coagulopathy. However, we will see. For the remainder past medical history, family history, social history and review of systems see below. Home Medications Medication Instructions Recorded Confirmed Type Indomethacin Cap [Indocin Cap] 25 mg PO TID #30 capsule 07/25/16 07/26/16 Rx Tizanidine HCl [Zanaflex] 2 mg PO Q6H #40 capsule 07/25/16 07/26/16 Rx predniSONE TAB [PredniSONE] 20 mg PO DAILY #15 tablet 07/25/16 07/26/16 Rx Hydrocodone/Acetaminophen 1 each PO Q4H PRN 07/26/16 07/26/16 History [Hydrocodon-Acetaminophen 5-325] Allergies Allergy/AdvReac Type Severity Reaction Status Date / Time No Known Allergies Allergy Unverified 07/24/16 23:28 Medical,Surgical,& Family Hx - Medical History Other: Comment Only: Miscellaneous Medical Problems (hx drug use == positive opiods , marijuana& cocaine in ER) - Surgical History Cardiac Surgeries: Comment Only: Cardiac Surgery (left fem. embolectomy&fasciotomy 07/26/16) - Family History Family History: Reports;: Family Cancer, Family Stroke Comment Only: Family Diabetes (Yes, mother), Family Heart Disease (Yes, mother& father-- mother had CABG), Family Hypertension (Yes, mother& father), Family Psychiatric Problems (father - bipolar depression) - Social History Smoking Status: Never smoker Frequency of Alcohol Use: None Type of Drug Use: None Exam - Constitutional Vitals: Period Temp Pulse Resp BP Sys/Cuello Pulse Ox Last 24 Hr 97.5 F-99.0 F 0-124 8-24 113-173/66-147 94-99 Results - Labs CBC & BMP: 07/28/16 01:09 07/28/16 01:09
[2016-07-28] MEDS: CLOPIDOGREL 75 MG TABLET PO SCH (09:43)
[2016-07-28] MEDS: ASPIRIN CHEW 81 MG TABLET PO SCH (09:43)
[2016-07-28] MEDS: ALTEPLASE 24 MG in SODIUM CHLORIDE 0.9% 480 ML IV SCH (09:58)
[2016-07-28 11:40] LABS: PT Patient Result 10.4 SECS; Partial Thromboplastin Time 37.7 SECS (0-40)
--- NOTE | 2016-07-28 11:43 | Pathology Report from [facility] ---
ACCESSION # : [id number] PATIENT NAME : Carlene Velasquez ORDERING DR : MARY ARELLANO MD CLINICAL HX: Peripheral arterial occlusive disease POST-OP DX: Same SPECIMEN INFO: Thrombus GROSS DESCRIPTION: The specimen is received in formalin labeled with the patient 's name and consists of four fragments of hyperemic tissue from endarectomy specimen collectively measuring 10.0 x 0.8 cm. Cut surfaces reveal clotted blood. Felling Bucking Supervisor sections submitted in one cassette. DIAGNOSIS FOR CARLENE VELASQUEZ: LEFT FEMORAL EMBOLECTOMY: Organizing thrombus. SERVICE DATE: 07/27/2016 REPORT DATE: 07/28/2016 PATHOLOGIST: Daina Moura III, M.D. MTDD
[2016-07-28] MEDS: SODIUM CHLORIDE 0.45% 1,000 ML IV SCH (13:38)
[2016-07-28 14:15] LABS: DRVVT Screen Ratio 0.9 ratio (0.0 - 1.1)
--- NOTE | 2016-07-28 15:45 | Event Note ---
Since the initiation of the TPA administration, is quite and received nearly 24 mg total dose over 24 hours. However, clinically for left foot remains cold with no return of motor control or sensation below the mid ortiz. Repeat angiogram reveals no significant recanalization of the main popliteal or tibial vessels below the knee. Small perforators are visualized but there is no significant for flow through the capillary is suggestive of diffuse capillary level thrombosis/occlusion. Therefore, no additional attempts were made to restore flow. All catheters and wires were removed. The right groin puncture site was closed with a 6 Sinhala Angio-Seal device with excellent result. Sterile dressing was applied. The patient tolerated the procedure well. I discussed these results with Dr. Farfan at the conclusion of the procedure.
--- NOTE | 2016-07-28 15:47 | Post Interventional Procedure ---
Pre-op diagnosis: ischemic left foot, poor/difficult venous access Post-op diagnosis: same Procedure: PICC placement Contrast: none Flouroscopy: 0.1 min Radiologist: Wenceslao Carlos Anesthesia: local Specimens: none sent Estimated blood loss: minimal (1 mL) Complications: none Condition: stable Description/Findings: Left arm basilic vein 5 Romansh dual lumen power PICC line placed. The catheter is ready for use. Recheck of left lower extremity arteriogram demonstrates widely patent superficial femoral and proximal popliteal arteries with complete occlusion of the mid/distal popliteal artery and no significant recanalization of the tibial vessels. No significant for flow is evident suggestive of widespread capillary level thrombosis/occlusion due to prolonged ischemia. Assessment and Plan - Time spent with patient Time spent with patient: Less than 30 minutes (1) Ischemic leg Problem details: pulseless left foot despite surgical thrombectomy Status: Acute Assessment and plan: Plan for percutaneous arteriogram and catheter based thrombectomy/thrombolysis as attempt for salvage therapy. All risks were discussed with the patient/ family and all questions were answered to their satisfaction. Current Visit: Yes (2) Peripheral arterial occlusive disease Problem details: arterial thrombus on CTA, no significant improvement in the left foot pulses and motor/sensation Status: Acute Assessment and plan: Salvage therapy with thrombectomy/thrombolysis will be attempted. The patient and family were counseled that amputation is likely still going to be required with the hope that thrombolysis may reduce the amount of amputation needed. Current Visit: Yes
--- NOTE | 2016-07-28 16:18 | Event Note ---
We have been unable to restore flow into the lower leg. At this point of she has some progression of the coolness of the to above ankle now has poor sensation the knee down but we still may be able to obtain healing below-knee amputation I would like to give it time to better observe where area of demarcation is going to be and as long as she can tolerate discomfort I think that we can wait several days that would be an advantage. Still hoping to achieve healing with a below-knee amputation have concerns that will not be feasible. I will keep her and CCU 9 started oozing from fashion side TPA that time were all and perhaps move upstairs tomorrow.
--- NOTE | 2016-07-28 16:22 | Ultrasound Report ---
IR PICC line insertion, US guide vascular access IR PICC Placement Peripherally-inserted central catheter (PICC) placement using ultrasound and fluoroscopic guidance Ultrasound of the left upper extremity Clinical Information: 55-year-old female with ischemic left foot and poor/difficult venous access. PICC line is requested for more stable venous access. Physician: Dr. Carlos Procedure: The patient was advised of the benefits, risks, and alternatives of the procedure and informed consent was obtained. A time out was performed with verification of the patient's name, MRN, site of procedure, and type of procedure to be performed. The patient was positioned in the supine position on the angiographic table. The site was prepped and draped in the usual sterile fashion. Additionally, maximal sterile barrier technique was employed for the procedure. A regional refrigerated cdl truck driver radiograph reveals no relevant abnormality. Ultrasound examination of the left arm demonstrates patent and compressible brachial and basilic veins. The left arm was prepped and draped in the usual sterile fashion. The left basilic vein was again identified. Using ultrasound guidance, a 21 gauge needle was used to access the vein. A permanent ultrasound recording of vascular access was obtained for the patient's record. A 0.018" cope wire was then advanced into the vein. The needle was exchanged for a 5 [place] peel-away sheath. A 5 [place] double lumen Bard Solo PICC catheter was measured and trimmed to the 39 cm uday. The PICC line was advanced through the sheath and into the central circulation. The catheter tip was positioned at the cavo-atrial junction. The peel-away sheath was then removed. At the conclusion of the procedure, the catheter was secured in place using a Stat-Lock device. A sterile dressing was applied. The lumens aspirate and flush freely. The catheter is ready for immediate use. The patient tolerated the procedure well and was returned to the PRU in stable condition. EBL: < 5 mL. Complications: None. Fluoroscopy time: 0.1 minutes Conclusion: Successful placement of a 5 [place] double lumen Bard Solo power injectable PICC via the left basilic vein. The catheter is ready for immediate use. PROCEDURE INTERPRETED AT [facility] DEPARTMENT OF RADIOLOGY Final Report Signed by: Wenceslao Carlos
--- NOTE | 2016-07-28 16:27 | Interventional Radiology Rpt ---
IR TPA post thromlysis recheck Clinical Information: 55-year-old female with prolonged ischemia of the left lower extremity status post surgical thrombectomy and attempt at salvage thrombolysis. Patient returns for reevaluation. Physician[s]: Dr. Carlos Procedure: The patient was advised of the benefits, risks, and alternatives of the procedure and informed consent was obtained. A time out was performed with verification of the patient's name, MRN, site of procedure, and type of procedure to be performed. The patient was positioned in the supine position on the angiographic table. The site was prepped and draped in the usual sterile fashion. 1% lidocaine for local anesthesia only was used for the procedure. A bonding machine tender radiograph reveals no the lower extremity infusion catheter in similar position. Prior to removal of the occlusion wire, a brief injection demonstrates filling of the distal popliteal, anterior tibial and posterior tibial arteries with no significant for flow and no significant opacification of the distal vasculature. Brief angiogram via the sheath demonstrates the distal external iliac on common femoral and superficial femoral arteries to again be essentially widely patent. The proximal popliteal artery is completely occluded, unchanged from prior. Small geniculate branches are noted to be opacified about the knee. Given the findings, no additional intervention was warranted and therefore, the catheter was removed. The right groin sheath was removed. A 6 [place] Angio-Seal device was used to obtain hemostasis at the puncture site The patient tolerated the procedure well and was returned to the ICU in stable condition. EBL: < 5 mL. Complications: None. Total fluoroscopy time: 1.7 minutes Conclusion: No significant improvement in blood flow to the left lower extremity despite 24 hours intra-arterial administration, likely related to widespread capillary level thrombosis. No additional intervention was performed. All catheters and wires were removed. PROCEDURE INTERPRETED AT [facility] DEPARTMENT OF RADIOLOGY Final Report Signed by: Wenceslao Carlos
[2016-07-28 16:32] LABS: Partial Thromboplastin Time 33.8 SECS (0-40)
[2016-07-29] MEDS: LACTATED RINGERS 1,000 ML IV SCH ×2 (01:41→09:29)
[2016-07-29] MEDS: KETOROLAC 15 MG/1 ML VIAL IV SCH ×2 (02:16→09:45)
[2016-07-29 04:34] LABS: Partial Thromboplastin Time 32.7 SECS (0-40)
--- NOTE | 2016-07-29 07:55 | Oncology Progress Note ---
Oncology Subjective PN Interval history: This is a patient with thromboembolic disease to her left lower extremity. We are in the process of evaluating her for coagulopathy of some type although I do not think she has one. A few of the studies are back but nothing that indicates a hypercoagulable condition so far. I will continue to follow her with you. Exam - Constitutional Vitals: Period Temp Pulse Resp BP Sys/Cuello Pulse Ox Last 24 Hr 97.3 F-98.1 F 0-119 8-33 99-185/57-99 93-99 Results - Labs CBC & BMP: 07/28/16 01:09 07/28/16 01:09
[2016-07-29] MEDS: CLOPIDOGREL 75 MG TABLET PO SCH (09:50)
[2016-07-29] MEDS: ASPIRIN CHEW 81 MG TABLET PO SCH (09:50)
--- NOTE | 2016-07-29 10:41 | Event Note ---
Ms. Velasquez has reasonable control of her pain today continues to have a markedly paresthetic and cool foot is getting some darkening on the dorsum but not showing rapid changes of the ischemic gangrene the fasciotomy sites look good and are well perfused she does have sensation of the skin cath not as much slough get down toward the ankle blood counts are looking good vital signs are good go ahead and move her to her room upstairs ask physical therapy to start working with her surgery help her get up out of the bed I think at this point time watch this leg and foot while longer to try to get the best determination where we are going have limb loss and hopefully this will be a below-knee position. Percocet for pain we'll keep the PRIOR AUTHORIZATION TECHNICIAN going for now. Will stop Toradol.
[2016-07-29] MEDS: HYDROmorphone PCA 30 MG/30 ML SYRINGE IV SCH ×3 (13:18→22:36)
[2016-07-29 14:33] LABS: Homocysteine 24 mcmol/L
[2016-07-29 14:44] LABS: Partial Thromboplastin Time 29.6 SECS (0-40)
[2016-07-29] MEDS: SODIUM CHLORIDE 0.45% 1,000 ML IV SCH (16:00)
[2016-07-29] MEDS: ONDANSETRON 4 MG/2 ML VIAL IV PRN (17:20)
[2016-07-29] MEDS: oxyCODONE/ACETAMINOPHEN 5-325 MG TABLET PO PRN (22:34)
[2016-07-30] MEDS: HydrOXYzine PAMOATE 25 MG CAPSULE PO PRN (01:27)
[2016-07-30 03:14] LABS: Calcium 7.1 MG/DL (8.5-10.1); Potassium 4.5 MMOL/L (3.5-5.1)
[2016-07-30 04:12] LABS: Partial Thromboplastin Time 30.7 SECS (0-40)
--- NOTE | 2016-07-30 08:03 | Oncology Progress Note ---
Oncology Subjective PN Interval history: Studies that have returned so far include multiple normal fibrinogens. Actually the fibrinogen level is high because of inflammation. Anti-thrombin 3 activity level is actually low. Lupus anticoagulant activity is negative. Her left foot is cold. She is oriented and alert. Exam - Constitutional Vitals: Period Temp Pulse Resp BP Sys/Cuello Pulse Ox Last 24 Hr 98.0 F-98.4 F 98-114 12-28 118-154/50-97 93-99 Results - Labs CBC & BMP: 07/28/16 01:09 07/30/16 02:35
[2016-07-30] MEDS: ASPIRIN CHEW 81 MG TABLET PO SCH (08:51)
[2016-07-30] MEDS: CLOPIDOGREL 75 MG TABLET PO SCH (08:51)
[2016-07-30 09:11] LABS: F5DNA Reviewed By SEE COMMENTS; Factor V Leiden (R506Q) Mutati Negative (Negative); PTNT Reviewed By SEE COMMENTS
[2016-07-30] MEDS: SODIUM CHLORIDE 0.9% 1,000 ML IV SCH ×2 (10:10→22:44)
[2016-07-30] MEDS: oxyCODONE/ACETAMINOPHEN 5-325 MG TABLET PO PRN ×4 (10:23→21:29)
[2016-07-30] MEDS: SODIUM CHLORIDE 0.45% 1,000 ML IV SCH (14:30)
[2016-07-30 14:55] LABS: Partial Thromboplastin Time 29.4 SECS (0-40)
[2016-07-30] MEDS: HYDROmorphone PCA 30 MG/30 ML SYRINGE IV SCH (21:21)
[2016-07-31 05:33] LABS: Basophils # 0.1 10*3/uL (0.0-0.2); Basophils % 0.3 % (0.0-0.8); Eosinophils # 0.2 10*3/uL (0.0-0.87); Hematocrit 36.2 VOL% (35.7-47.0); Hemoglobin 12.2 GM/DL (12.0-16.0); Immature Granulocytes % 2.8 %; Immature Granulocytes Absolute 0.65 #; Lymphocytes # 1.6 10*3/uL (1.4-4.0); Lymphocytes % 7.1 % (21.3-54.2); Mean Corpuscular HGB Conc 33.7 GM/DL (32-36); Mean Corpuscular Hemoglobin 31 PG (27-34); Mean Corpuscular Volume 90.5 FL (87-102); Mean Platelet Volume 10.3 FL (9.6-12.0); Monocytes # 2.3 10*3/uL (0.11-0.8); Monocytes % 9.9 % (1.7-12.7); Neutrophils # 18.2 10*3/uL (1.4-7.4); Neutrophils % 78.9 % (38.7-73.9); Platelet Count 266 T/CUMM (130-400)
[2016-07-31 05:55] LABS: Calcium 7.3 MG/DL (8.5-10.1); Osmolality,Calculated 284.8 MOS/KG (273-304); Potassium 4.8 MMOL/L (3.5-5.1)
[2016-07-31 06:19] LABS: Band Neutrophils 1 % (0-10); Eosinophils 1 % (0-10); Hypochromasia 1+; Lymphocytes 4 % (20-55); Platelet Estimate Adequate; Segmented Neutrophils 79 % (50-85); Total Cells Counted 100
[2016-07-31] MEDS ORDERED: ceFAZolin 2,000 MG in PREMIX 1 EACH IV ONE (09:13)
[2016-07-31] MEDS ORDERED: VANCOMYCIN 500 MG VIAL ONE (09:39)
[2016-07-31] MEDS ORDERED: NEOSTIGMINE 10 MG/10 ML VIAL ONE (10:00)
[2016-07-31] MEDS ORDERED: PHENYLEPHRINE 50 MG/5 ML VIAL ONE (10:00)
[2016-07-31] MEDS ORDERED: PROPOFOL 200 MG/20 ML VIAL IV ONE (10:00)
[2016-07-31] MEDS ORDERED: PHENYLEPHRINE 1 MG/10 ML SYRINGE IV ONE (10:00)
[2016-07-31] MEDS ORDERED: SUCCINYLCHOLINE 200 MG/10 ML VIAL ONE (10:00)
[2016-07-31] MEDS ORDERED: GLYCOPYRROLATE 0.4 MG/2 ML VIAL ONE (10:00)
[2016-07-31] MEDS ORDERED: ROCURONIUM 100 MG/10 ML VIAL IV ONE (10:00)
[2016-07-31] MEDS ORDERED: LIDOCAINE 2% 5 ML VIAL ONE (10:00)
[2016-07-31] MEDS ORDERED: BUPIVACAINE 0.5% 50 ML VIAL ONE (10:06)
[2016-07-31] MEDS: CLOPIDOGREL 75 MG TABLET PO SCH (10:16)
[2016-07-31] MEDS: ASPIRIN CHEW 81 MG TABLET PO SCH (10:16)
[2016-07-31] MEDS ORDERED: MIDAZOLAM 2 MG/2 ML VIAL ONE (11:17)
[2016-07-31] MEDS ORDERED: SEVOFLURANE 1 UNIT/15 MINUTE INH ONE (11:17)
[2016-07-31] MEDS ORDERED: fentaNYL 100 MCG/2 ML VIAL ONE (11:17)
--- NOTE | 2016-07-31 11:19 | Oncology Progress Note ---
Oncology Subjective PN Interval history: We are still in the process of evaluating this patient for hypercoagulable conditions. Her anti-thrombin 3 level is slightly low at 60 with normal range being 80-130. I do not think this is significant. Her factor V Leiden is negative. Lupus anticoagulant and antiphospholipid antibodies as well as prothrombin 15151 mutation are pending. Exam - Constitutional Vitals: Period Temp Pulse Resp BP Sys/Cuello Pulse Ox Last 24 Hr 98.1 F-99.4 F 96-109 18-20 126-161/67-84 94-98 Results - Labs CBC & BMP: 07/31/16 05:23 07/31/16 05:23
[2016-07-31] MEDS ORDERED: ROPIVACAINE 0.5% 30 ML VIAL ONE ×2 (11:32→12:07)
[2016-07-31] MEDS ORDERED: ONDANSETRON 4 MG/2 ML VIAL ONE (11:40)
[2016-07-31] MEDS: HYDROmorphone 2 MG/1 ML VIAL IV PRN ×4 (11:40→11:55)
[2016-07-31] MEDS ORDERED: HYDROmorphone 2 MG/1 ML VIAL ONE (11:40)
[2016-07-31] MEDS ORDERED: ONDANSETRON 4 MG/2 ML VIAL IV PRN (11:44)
--- NOTE | 2016-07-31 14:00 | Anesthesia ---
Anesthesia Post OP - Post Ansesthetic Evaluation Patient seen in post op: Yes Resp: within normal limits CV: within normal limits Mental: within normal limits Temp: within normal limits [id number]: within normal limits Nausea and Vomiting: within normal limits Pain: within normal limits
[2016-07-31] MEDS: SODIUM CHLORIDE 0.9% 1,000 ML IV SCH (15:41)
[2016-07-31] MEDS: ENOXAPARIN 40 MG/0.4 ML SYRINGE SUBCUT SCH (16:07)
[2016-07-31] MEDS: SODIUM CHLORIDE 0.45% 1,000 ML IV SCH (16:13)
[2016-07-31] MEDS: oxyCODONE/ACETAMINOPHEN 5-325 MG TABLET PO PRN (19:00)
[2016-07-31] MEDS: HydrOXYzine PAMOATE 25 MG CAPSULE PO PRN (21:48)
[2016-07-31] MEDS: HYDROmorphone PCA 30 MG/30 ML SYRINGE IV SCH (21:50)
[2016-08-01] MEDS: oxyCODONE/ACETAMINOPHEN 5-325 MG TABLET PO PRN ×4 (04:01→20:20)
[2016-08-01] MEDS: HYDROmorphone PCA 30 MG/30 ML SYRINGE IV SCH (04:34)
[2016-08-01] MEDS: SODIUM CHLORIDE 0.9% 1,000 ML IV SCH (04:40)
[2016-08-01] MEDS: CLOPIDOGREL 75 MG TABLET PO SCH (09:00)
[2016-08-01] MEDS: ASPIRIN CHEW 81 MG TABLET PO SCH (09:00)
--- NOTE | 2016-08-01 10:33 | Event Note ---
She feels better and her pain is controlled. She is afebrile. Her dressing is dry and we will get her up out of bed today.
[2016-08-01] MEDS: ENOXAPARIN 40 MG/0.4 ML SYRINGE SUBCUT SCH (11:31)
[2016-08-01] MEDS: HydrOXYzine PAMOATE 25 MG CAPSULE PO PRN ×2 (12:04→17:44)
[2016-08-01] MEDS: SODIUM CHLORIDE 0.45% 1,000 ML IV SCH (15:54)
[2016-08-01] MEDS ORDERED: BUPIVACAINE 0.25% 50 ML VIAL ONE (20:50)
[2016-08-01] MEDS ORDERED: BUPIVACAINE 0.25% NERVEBLOCK SCH (22:20)
[2016-08-02] MEDS: oxyCODONE/ACETAMINOPHEN 5-325 MG TABLET PO PRN ×6 (00:57→22:16)
[2016-08-02] MEDS: SODIUM CHLORIDE 0.9% 1,000 ML IV SCH ×5 (04:59→23:45)
[2016-08-02] MEDS: HYDROmorphone PCA 30 MG/30 ML SYRINGE IV SCH ×3 (04:59→22:17)
[2016-08-02] MEDS: CLOPIDOGREL 75 MG TABLET PO SCH (08:17)
[2016-08-02] MEDS: ASPIRIN CHEW 81 MG TABLET PO SCH (08:17)
--- NOTE | 2016-08-02 09:08 | Event Note ---
She feels better and has less pain. Her stump dressing is dry. She is afebrile.
[2016-08-02] MEDS: HydrOXYzine PAMOATE 25 MG CAPSULE PO PRN ×2 (12:12→23:50)
[2016-08-02] MEDS: ENOXAPARIN 30 MG/0.3 ML SYRINGE SUBCUT SCH (12:13)
[2016-08-02] MEDS: ONDANSETRON 4 MG/2 ML VIAL IV PRN (19:44)
[2016-08-03] MEDS: oxyCODONE/ACETAMINOPHEN 5-325 MG TABLET PO PRN ×5 (02:25→21:11)
--- NOTE | 2016-08-03 07:02 | Consultation ---
DATE: 07/31/2016 SURGEON: Isaias Farfan MD ANESTHESIA: Mg, General endotracheal. PREOPERATIVE DIAGNOSIS: ISCHEMIC GANGRENE OF THE LEFT LOWER LEG. POSTOPERATIVE DIAGNOSIS: SAME. OPERATION PERFORMED: Left below knee amputation. INDICATIONS: Ms. Velasquez is a 55-year-old woman who has developed ischemic gangrene of her left low er leg secondary to acute thrombosis. The left lower leg is quite ischemic. She has had previous f asciotomies. There is no reasonable hope of salvage. I have discussed below-knee amputation with her . I have explained the alternatives and the risks and complications, which she understands and acce pts. DESCRIPTION OF THE PROCEDURE: After the induction of general endotracheal anesthesia, the patient's left leg is prepped with Hibiclens and draped in the usual fashion, placed the foot in an isolatio n bag and then wrapping. She had large fasciotomies with a great deal of bulging of soleus muscle. I marked the leg for a posterior flap type removal with amputation, made skin incisions with scalpel and cautery used to complete division of the skin and subcutaneous, both anterior and posteriorly, s taying with the fasciotomy incisions. Noted very poor contractility of the muscle. I used cautery to divide the anterior muscular bundle and the interosseous membrane and began dividing the soleus m uscle medially. A reciprocating saw was used to divide the fibula just above the level of the tibia , which was also divided. I then used cautery to divide through the popliteal artery vein and nerve, noting thrombus within the artery and the vein and no active bleeding. I removed the soleus muscle , leaving the gastrocnemius intact, and this was completed as a posterior flap. The skin and subcut aneous appeared to be fairly perfused. The muscle gastroc appeared to be fairly perfused. The soleu s had been markedly dilated and very poorly perfused. The leg was copiously irrigated. I brought th e posterior flap to the anterior fascial layer with interrupted #1 Vicryl. I used an ON-Q device for local anesthetic infusion and placed an eighth-inch Hemovac that were brought out superior to the i ncision. The skin was approximated with interrupted 2-0 nylon and skin clips. I did debride some o f the skin from the edges of the posterior flap where there appeared to be some ischemia. This is a tenuous below-knee amputation at best due to perfusion, but I do not believe there is any way I can get a better below-knee amputation and I think the opportunity for below-knee prosthesis warrants t his attempt. Blood loss estimated at 100 cc or less. Sponge, needle and instrument counts are correct. The patie nt's leg is placed in a posterior splint, wrapped, and she is taken to recovery in good condition.
[2016-08-03] MEDS: SODIUM CHLORIDE 0.9% 1,000 ML IV SCH ×2 (08:10→21:30)
[2016-08-03] MEDS: CLOPIDOGREL 75 MG TABLET PO SCH (08:25)
[2016-08-03] MEDS: HydrOXYzine PAMOATE 25 MG CAPSULE PO PRN ×2 (08:25→21:08)
[2016-08-03] MEDS: ASPIRIN CHEW 81 MG TABLET PO SCH (08:25)
[2016-08-03] MEDS ORDERED: NALOXONE 0.4 MG/ML VIAL IV PRN (08:58)
--- NOTE | 2016-08-03 09:11 | Event Note ---
[id number] admitted by dr mccloud w acute ischemic left foot w no motor or sensory function. she underwent thrombectomy and fasciotomy by dr mccloud and dr reed on 07/26 followed by attempted thrombolysis by dr guerra in IR on 07/27. pt continued to have cold pulseless leg w pain so dr mccloud took her for left BKA on 07/31. dr ryan is following her as well for hematology. pt is crying this am due to pain. her water service dispatcher had run out, percocets help but not quite enough. pt is working w PT and they say she is doing ok but will need assistance. pt has no payer source so child welfare social worker working on getting her placed somewhere on indigent status. AFVSS, creatinine is up to 2.7 from 1.8 at admission, uop is good. wbc up to 23 , HH normal, MILENA w 30serosang, pt still has villegas for now. will look at wound when dr mccloud rounds to keep from causing her increased pain AP--repeat labs in am check CXR and UA for wbc elevation look at wound when dr mccloud rounds renew water service dispatcher and start neurontin cont PT child welfare social worker to cont to try to find placement discussed w dr mccloud
[2016-08-03] MEDS ORDERED: LACTATED RINGERS 500 ML IV ONE (09:30)
[2016-08-03] MEDS: GABAPENTIN 100 MG CAPSULE PO SCH ×3 (10:17→21:09)
[2016-08-03] MEDS ORDERED: BISACODYL 5 MG TABLET PO PRN (10:40)
--- NOTE | 2016-08-03 10:42 | Event Note ---
Statement is afebrile no ongoing signs of infection urine is clear. Creatinine was 2.7 on the third will repeat CBC and BMP today but I expect creatinine has come bowel as well as her white blood count. Her left BK stump actually looks good and I'm encouraged that the perfusion is going to be good enough to allow healing. I have remove the Hemovac drain. We'll work she start work with physical therapy and we will look into some sort of rehabilitation program
[2016-08-03] MEDS: HYDROmorphone PCA 30 MG/30 ML SYRINGE IV SCH ×2 (10:45→15:48)
[2016-08-03 10:59] LABS: Basophils # 0.1 10*3/uL (0.0-0.2); Basophils % 0.4 % (0.0-0.8); Eosinophils # 0.2 10*3/uL (0.0-0.87); Hematocrit 32.7 VOL% (35.7-47.0); Hemoglobin 11.1 GM/DL (12.0-16.0); Immature Granulocytes % 8.8 %; Immature Granulocytes Absolute 1.97 #; Lymphocytes # 1.4 10*3/uL (1.4-4.0); Lymphocytes % 6.2 % (21.3-54.2); Mean Corpuscular HGB Conc 33.9 GM/DL (32-36); Mean Corpuscular Hemoglobin 31 PG (27-34); Mean Corpuscular Volume 90.3 FL (87-102); Mean Platelet Volume 9.4 FL (9.6-12.0); Monocytes # 1.9 10*3/uL (0.11-0.8); Monocytes % 8.6 % (1.7-12.7); Neutrophils # 16.7 10*3/uL (1.4-7.4); Platelet Count 509 T/CUMM (130-400); Red Blood Count 3.62 MC/CUMM (3.8-5.5); Red Cell Distribution Width 14.3 % (9.3-17.3); White Blood Count 22.3 T/CUMM (4-12)
[2016-08-03 11:03] LABS: Apearance,Urine Slightly Hazy (Clear); Bacteria,Urine Occasional /HPF (Few); Bilirubin,Urine Negative (Negative); Blood, Urine Moderate mg/dL (Negative); Glucose,Urine (UA) 50 mg/dL (Negative); Hyaline Casts,Urine 4 /LPF (0-3); Ketones,Urine Negative (Negative); Mucus,Urine Occasional /LPF (Occasional); Nitrite,Urine Negative (Negative); Protein,Urine >=500 MG/DL; RBC,Urine 30 /HPF (0-4); Squamous Epithelial Cell,Urine Occasional /HPF (0-10); Urine Color Yellow (Yellow); Urine Specific Gravity 1.008 (1.001-1.035); Urine Urobilinogen < 2.0 EU/DL (0.2-1.0); WBC,Urine 4 /HPF (0-6)
[2016-08-03 11:24] LABS: Calcium 7.3 MG/DL (8.5-10.1); Osmolality,Calculated 279.1 MOS/KG (273-304); Potassium 4.8 MMOL/L (3.5-5.1)
[2016-08-03 11:31] LABS: Band Neutrophils 8 % (0-10); Eosinophils 2 % (0-10); Hypochromasia 1+; Lymphocytes 9 % (20-55); Metamyelocytes 1 %; Segmented Neutrophils 71 % (50-85); Total Cells Counted 100
[2016-08-03 11:32] LABS: Platelet Estimate Increased
--- NOTE | 2016-08-03 11:44 | Pathology Report from [facility] ---
ACCESSION # : [id number] PATIENT NAME : Carlene Velasquez ORDERING DR : MARY ARELLANO MD CLINICAL HX: Ischemic gangrene POST-OP DX: Same SPECIMEN INFO: LT lower leg GROSS DESCRIPTION: Received fresh labeled "CARLENE VELASQUEZ" is a 36.2 cm left lower leg amputation. The skin is brown with hair present. The foot displays skin sloughing. All five toes are present. The top of the foot and lower leg displays areas of purple red discoloration measuring up to 8 cm. The top area of the leg is opened with the underlying fat and muscle exposed. Areas of the muscle show dark red discoloration, as well. The arteries and veins are mildly clotted. [place] sections of arteries and veins are submitted in cassette A, ischemic skin and muscle in cassette B. DIAGNOSIS FOR CARLENE VELASQUEZ: LEFT B-K AMPUTATION: Gangrene, thrombosis. SERVICE DATE: 07/31/2016 REPORT DATE: 08/03/2016 PATHOLOGIST: Sterling Thacker
[2016-08-03] MEDS: ENOXAPARIN 30 MG/0.3 ML SYRINGE SUBCUT SCH (12:01)
[2016-08-03] MEDS ORDERED: HYDROmorphone 2 MG/1 ML VIAL IV ONE (12:46)
--- NOTE | 2016-08-03 16:07 | XRay Report ---
History: Elevated white blood cell count Date: 08/03/2016 Study: Chest x-ray AP portable Comparison exam: No previous chest x-ray currently available The left PICC line is positioned with its tip over the superior vena cava. The cardiac silhouette is upper normal in size. There is no mediastinal mass. The pulmonary vasculature is not grossly engorged. There is no gross pleural effusion. There is some platelike subsegmental atelectasis or scarring in either mid to lower lung. The lungs are otherwise grossly clear for shallow breath. There is no significant osseous abnormality. Impression: Mild platelike subsegmental atelectasis or scarring in either mid to lower lung PROCEDURE INTERPRETED AT [facility] DEPARTMENT OF RADIOLOGY Final Report Signed by: Dr. Gloria Brown
--- NOTE | 2016-08-03 18:17 | Nephrology Consult Note ---
History of Present Illness Chief complaint: arf History of present illness: Ms. Velasquez is a 55 year old female with the" of arterial occlusion which has resulted in amputation of the left leg below the knee.. She denies any history of diabetes or hypertension. She is not a smoker. Of note urine was positive for cannabinoids and cocaine on presentation. Family history is significant in that she has a sister who reports having IgA nephropathy. Patient's creatinine on July 27 was 1.8 she has had contrast and peripheral arterial intervention with contrast. Creatinine today is 3.0. On exam she is alert and implanted pain and using a CLASSIFICATIONS OFFICER CC/CM. She is no obese lady. Neck without jugular venous distention. Heart without rub or gallop. Chest is clear. Abdomen is soft. She does have peripheral edema particularly of the right leg. Her measured albumin earlier during his hospital stay was 1.8 and she has consistently had heavy proteinuria and measured. Impression acute renal failure in the setting of probable background renal impairment. Hypoalbuminemia and probable heavy proteinuria likely compatible with a nephrotic syndrome. We will measure urine protein and follow her creatinine. She currently does not have a Love think that's fine. If she's voiding well and emptying well she 'll be fine without Love. I'm concerned about underlying renal disease and particularly an underlying glomerulopathy. We will follow with you thank you Home Medications Medication Instructions Recorded Confirmed Type Indomethacin Cap [Indocin Cap] 25 mg PO TID #30 capsule 07/25/16 07/26/16 Rx Tizanidine HCl [Zanaflex] 2 mg PO Q6H #40 capsule 07/25/16 07/26/16 Rx predniSONE TAB [PredniSONE] 20 mg PO DAILY #15 tablet 07/25/16 07/26/16 Rx Hydrocodone/Acetaminophen 1 each PO Q4H PRN 07/26/16 07/26/16 History [Hydrocodon-Acetaminophen 5-325] Allergies Allergy/AdvReac Type Severity Reaction Status Date / Time latex Allergy Verified 07/31/16 20:40 Medical,Surgical,& Family Hx - Medical History Other: Comment Only: Miscellaneous Medical Problems (hx drug use == positive opiods , marijuana& cocaine in ER) - Surgical History Cardiac Surgeries: Comment Only: Cardiac Surgery (left fem. embolectomy&fasciotomy 07/26/16) - Family History Family History: Reports;: Family Cancer, Family Stroke Comment Only: Family Diabetes (Yes, mother), Family Heart Disease (Yes, mother& father-- mother had CABG), Family Hypertension (Yes, mother& father), Family Psychiatric Problems (father - bipolar depression) - Social History Smoking Status: Never smoker Frequency of Alcohol Use: None Type of Drug Use: None Review of Systems 12 point system: reviewed and no additional remarkable complaints except as stated Exam - Vital Signs Vital signs: Period Temp Pulse Resp BP Sys/Cuello Pulse Ox Last 24 Hr 98.0 F-98.5 F 89-97 18-20 131-162/71-90 95-98 - General Appearance General appearance: obese EENT: ATNC Neck: no JVD, no thyromegaly, no carotid bruit, supple Respiratory: no kyphosis, no scoliosis Cardiology: no murmurs, no rub, no gallops, no edema, regular rate, regular rhythm, normal S1, normal S2 Gastrointestinal: normoactive bowel sounds Integumentary: no rash, warm and dry Neurologic: no focal deficit, no asterixis, alert and oriented x3, reflexes 2+ and symmetric, gait normal, strength 5/5 Musculoskeletal: no deformities (left leg amp. 3+ r leg edema), no erythema, no cyanosis, no clubbing Results - Labs CBC & BMP: 08/03/16 10:39 08/03/16 10:38 Assessment and Plan (1) Peripheral arterial occlusive disease Problem details: arterial thrombus on CTA, no significant improvement in the left foot pulses and motor/sensation Status: Acute Current Visit: Yes (2) Renal failure (ARF), acute on chronic Status: Acute Current Visit: Yes Specialty Discharge - Follow Up or Referrals - Speciality Discharge Instructions Nephrology Instructions: Quantitate proteinuria. Measure serum albumin. Screen for lupus if not yet done in view of her renal impairment and proteinuria
[2016-08-04] MEDS: oxyCODONE/ACETAMINOPHEN 5-325 MG TABLET PO PRN ×2 (01:54→08:25)
[2016-08-04] MEDS: SODIUM CHLORIDE 0.9% 1,000 ML IV SCH ×2 (04:40→09:30)
[2016-08-04] MEDS: HydrOXYzine PAMOATE 25 MG CAPSULE PO PRN (06:21)
[2016-08-04 06:56] LABS: Basophils # 0.1 10*3/uL (0.0-0.2); Basophils % 0.4 % (0.0-0.8); Eosinophils # 0.2 10*3/uL (0.0-0.87); Eosinophils % 0.8 % (0.00-10.9); Hematocrit 30.1 VOL% (35.7-47.0); Hemoglobin 10.1 GM/DL (12.0-16.0); Immature Granulocytes % 7.6 %; Immature Granulocytes Absolute 1.99 #; Lymphocytes # 1.7 10*3/uL (1.4-4.0); Lymphocytes % 6.6 % (21.3-54.2); Mean Corpuscular HGB Conc 33.6 GM/DL (32-36); Mean Corpuscular Hemoglobin 31 PG (27-34); Mean Corpuscular Volume 91.2 FL (87-102); Mean Platelet Volume 9.4 FL (9.6-12.0); Monocytes # 2.2 10*3/uL (0.11-0.8); Monocytes % 8.5 % (1.7-12.7); Neutrophils # 19.9 10*3/uL (1.4-7.4); Neutrophils % 76.1 % (38.7-73.9); Platelet Count 551 T/CUMM (130-400); Red Cell Distribution Width 14.3 % (9.3-17.3); White Blood Count 26.1 T/CUMM (4-12)
[2016-08-04 07:17] LABS: Calcium 7.3 MG/DL (8.5-10.1); Osmolality,Calculated 278.2 MOS/KG (273-304); Potassium 4.5 MMOL/L (3.5-5.1)
[2016-08-04 07:19] LABS: Band Neutrophils 5 % (0-10); Eosinophils 1 % (0-10); Hypochromasia 1+; Lymphocytes 9 % (20-55); Macrocytosis Slight; Metamyelocytes 3 %; Myelocytes 1 %; Platelet Estimate Increased; Segmented Neutrophils 72 % (50-85); Total Cells Counted 100
--- NOTE | 2016-08-04 07:48 | Oncology Progress Note ---
Oncology Subjective PN Interval history: The patient does not have factor V Leiden. Also there is no evidence of lupus anticoagulant. However, the antiphospholipid antibody level was either not done or has fallen off this record. Prothrombin 36025 mutation testing is still not back either. Some of the other studies are still pending although that should be back by now. The homocystine level is not back yet either. These tests were all ordered originally on July 27. Exam - Constitutional Vitals: Period Temp Pulse Resp BP Sys/Cuello Pulse Ox Last 24 Hr 98.0 F-98.6 F 89-102 18-20 131-162/71-90 95-100 Results - Labs CBC & BMP: 08/04/16 06:24 08/04/16 06:24
[2016-08-04] MEDS: CLOPIDOGREL 75 MG TABLET PO SCH (08:23)
[2016-08-04] MEDS: ASPIRIN CHEW 81 MG TABLET PO SCH (08:24)
[2016-08-04] MEDS: GABAPENTIN 100 MG CAPSULE PO SCH ×3 (08:24→21:40)
[2016-08-04] MEDS: HYDROmorphone PCA 30 MG/30 ML SYRINGE IV SCH (09:00)
[2016-08-04] MEDS: ENOXAPARIN 30 MG/0.3 ML SYRINGE SUBCUT SCH (11:16)
--- NOTE | 2016-08-04 11:32 | Pain Management Consult Note ---
Assessment and Plan (1) Ischemic leg Problem details: pulseless left foot despite surgical thrombectomy Status: Acute Assessment and plan: Pain slowly improving, wean [employer] dilaudid to [place] which she has had in the past , avoid NSAIDS and tylenol. Not a good candidate for outpatient opioids given THC and cocaine but 2 weeks Rx for [place] reasonable. Depression with family members recently. Current Visit: Yes History of Present Illness Chief complaint: left BKA pain History of present illness: Ms. Velasquez is a 55 year old female who underwent left BKA wit hsome phantom foot sensation and stump pain both neuropathic and musculoskeletal. She is improving with her pain, today OOB to chair. Not on chronic pain meds but was pos cocaine and THC on admission and admits it. Renal function compromised but stable, advised no tylenol or NSAIDS. Taking gabapentin for neuropthic component , using IV dilaudid 1/2 mg q30 with benefit. Home Medications Medication Instructions Recorded Confirmed Type Indomethacin Cap [Indocin Cap] 25 mg PO TID #30 capsule 07/25/16 07/26/16 Rx Tizanidine HCl [Zanaflex] 2 mg PO Q6H #40 capsule 07/25/16 07/26/16 Rx predniSONE TAB [PredniSONE] 20 mg PO DAILY #15 tablet 07/25/16 07/26/16 Rx Hydrocodone/Acetaminophen 1 each PO Q4H PRN 07/26/16 07/26/16 History [Hydrocodon-Acetaminophen 5-325] Allergies Allergy/AdvReac Type Severity Reaction Status Date / Time latex Allergy Verified 07/31/16 20:40 Medical,Surgical,& Family Hx - Medical History Other: Comment Only: Miscellaneous Medical Problems (hx drug use == positive opiods , marijuana& cocaine in ER) - Surgical History Cardiac Surgeries: Comment Only: Cardiac Surgery (left fem. embolectomy&fasciotomy 07/26/16) - Family History Family History: Reports;: Family Cancer, Family Stroke Comment Only: Family Diabetes (Yes, mother), Family Heart Disease (Yes, mother& father-- mother had CABG), Family Hypertension (Yes, mother& father), Family Psychiatric Problems (father - bipolar depression) - Social History Smoking Status: Never smoker Frequency of Alcohol Use: None Type of Drug Use: None Exam - Constitutional Vitals: Period Temp Pulse Resp BP Sys/Cuello Pulse Ox Last 24 Hr 97.2 F-98.6 F 89-102 18-20 148-162/74-90 96-100 Results - Labs CBC & BMP: 08/04/16 06:24 08/04/16 06:24
[2016-08-04] MEDS: BISACODYL 5 MG TABLET PO SCH ×2 (11:55→21:46)
--- NOTE | 2016-08-04 12:38 | Event Note ---
Ms. Velasquez is in good spirits is up the chair seems to be having less pain appreciate the approach Dr. Carmen is providing I do note Dr. Cox finding of a probable nephrotic syndrome with protein wasting of asked him but that IV fluids and we will decrease those and stop and when she can get off the TPA. I discussed my plan that I would really like for her to be able to go to [facility] but we can continue to follow her other issues. Do note white blood count remains high now 26,000 but there is no overwhelming evidence of infection that I can see her cased all looked good there is no sign of particular activity in the urine chest x-ray just showed some mild atelectasis is not coughing up sputum and I don't think therefore it were treating a specific faction I'm going to stop her Ancef and I may result plan to repeat her blood cultures in the morning just to make certain there is not circulating bacteria
[2016-08-04] MEDS: ONDANSETRON 4 MG/2 ML VIAL IV PRN (14:45)
--- NOTE | 2016-08-04 17:28 | Nephrology Progress Note ---
Nephrology - PN: Subj Interval history: Ms. Velasquez is seen in follow-up of her acute renal failure. She is improved with a creatinine of 3.0 down from 3.1. She has nephrotic syndrome with protein to creatinine ratio of 16. In talking to her she now recalls having a very foamy urine well prior to hospitalization. Certainly the nephrotic syndrome can predispose to venous clots but I'm not certain that it has been associated much with arterial clots and arterial emboli. She has considerable edema but is not short of breath. I think the appropriate move now is to renal recovery from this acute renal injury and then began things such as an EVANGELISTA inhibitor to try to decrease proteinuria. Certainly now is not a good time to consider renal biopsy since she is going to require anticoagulation for a while. An PADMAJA is negative so Lupus is unlikely as an etiology of the nephrotic syndrome Exam (PN)-Nephrology - Vital Signs Vital signs: Period Temp Pulse Resp BP Sys/Cuello Pulse Ox Last 24 Hr 97.0 F-98.6 F 90-102 18-20 142-155/74-88 91-100 - Lab 08/04/16 06:24 08/04/16 06:24 Most recent lab results Calcium 7.3 MG/DL (8.5-10.1) L 08/04/16 06:24 Assessment and Plan (1) Peripheral arterial occlusive disease Problem details: arterial thrombus on CTA, no significant improvement in the left foot pulses and motor/sensation Status: Acute Current Visit: Yes (2) Renal failure (ARF), acute on chronic Status: Acute Current Visit: Yes
--- NOTE | 2016-08-05 08:53 | Event Note ---
Mrs. Velasquez is doing reasonably well with better pain control is now off the [employer] pump she does have significant weight gain and has swelling related to her nephrotic syndrome suture. We are arranging for her to be able to go to [facility] but I have concerns that her weight gain and nephrotic syndrome had not really stabilized yet and would like Dr. Cox to make decisions when we can safely remove her to [facility].
[2016-08-05] MEDS: CLOPIDOGREL 75 MG TABLET PO SCH (09:17)
[2016-08-05] MEDS: ASPIRIN CHEW 81 MG TABLET PO SCH (09:17)
[2016-08-05] MEDS: GABAPENTIN 300 MG CAPSULE PO SCH ×3 (09:18→21:49)
[2016-08-05] MEDS: BISACODYL 5 MG TABLET PO SCH ×2 (09:21→21:52)
--- NOTE | 2016-08-05 10:04 | XRay Report ---
XR chest 1V portable Indication: Shortness of breath Comparison: 03 August 2016 Findings: The heart and mediastinum are stable in size and configuration. Left arm catheter is unchanged in position. The pulmonary vascularity is normal in caliber. Linear left mid lung density is unchanged from previous exam. No other lung infiltrates, effusions, pneumothorax or other abnormality is demonstrated. Impression: No significant change. PROCEDURE INTERPRETED AT [facility] DEPARTMENT OF RADIOLOGY Final Report Signed by: Dr. Virgil Harris
[2016-08-05] MEDS: ENOXAPARIN 30 MG/0.3 ML SYRINGE SUBCUT SCH (11:46)
[2016-08-05] MEDS: HYDROmorphone 2 MG/1 ML VIAL IV PRN ×3 (11:59→23:33)
--- NOTE | 2016-08-05 15:31 | Nephrology Progress Note ---
Nephrology - PN: Subj Interval history: Ms. Velasquez is seen in follow-up of her nephrotic syndrome and acute renal failure. Creatinine was not done today but I expect it's improving and we will check that again tomorrow. We'll also check an albumin level tomorrow. The creatinine is falling we will begin diuretics since she has gained weight and does have a considerable amount of edema now. Regarding the moved to rehabilitation I think it would be fine once her creatinine is falling to move her there and we could manage diuretic therapy there. Exam (PN)-Nephrology - Vital Signs Vital signs: Period Temp Pulse Resp BP Sys/Cuello Pulse Ox Last 24 Hr 97.9 F-98.7 F 90-103 18-24 133-155/77-89 93-98 - Lab 08/04/16 06:24 08/04/16 06:24 Most recent lab results Calcium 7.3 MG/DL (8.5-10.1) L 08/04/16 06:24 Assessment and Plan (1) Peripheral arterial occlusive disease Problem details: arterial thrombus on CTA, no significant improvement in the left foot pulses and motor/sensation Status: Acute Current Visit: Yes (2) Renal failure (ARF), acute on chronic Status: Acute Current Visit: Yes
[2016-08-05 17:46] LABS: Phospholipid Ab IgM, S < 4.0 MPL
[2016-08-06] MEDS: HydrOXYzine PAMOATE 25 MG CAPSULE PO PRN ×2 (01:53→22:09)
[2016-08-06] MEDS: HYDROmorphone 2 MG/1 ML VIAL IV PRN ×5 (06:01→22:50)
[2016-08-06 07:18] LABS: Calcium 7.4 MG/DL (8.5-10.1); Potassium 4.6 MMOL/L (3.5-5.1)
[2016-08-06] MEDS: BISACODYL 5 MG TABLET PO SCH ×2 (08:10→20:09)
--- NOTE | 2016-08-06 08:20 | Event Note ---
Mrs. Velasquez appears to be more comfortable afebrile she is doing some physical therapy but complains of her teeth becoming loose and are painful needs to see a dentist. She states this is only become problem since she arrived and had her surgeries. Notably her creatinine is up to 3.3 and she still has fairly high weight of the 104 kg. I'll wait for Dr. Cox to tell us when it safe to her to go to rehabilitation but I do agree that we probably need to wait until she can come start dropping her creatinine
[2016-08-06] MEDS ORDERED: FUROSEMIDE INJ 160 MG in SODIUM CHLORIDE 0.9% 50 ML IV ONE (08:40)
--- NOTE | 2016-08-06 08:44 | Oncology Progress Note ---
Oncology Subjective PN Interval history: Some of this patient's lab tests are taking an inordinate length of time. We are still waiting on antiphospholipid antibody, homocysteine and prothrombin 63777 mutation. For the record, I ordered all of these tests initially on July 27, 2016. Those orders were not all carried out and I reordered some of these tests on August 04. This electronic medical record system failed in someway has resulted in a delay in getting these tests. I am not sure whether it was the lab on the computer system itself but I suspect in this case that was the lab. I have actually discussed this problem with administration and with the pathologist. Exam - Constitutional Vitals: Period Temp Pulse Resp BP Sys/Cuello Pulse Ox Last 24 Hr 98.1 F-99.1 F 95-103 19-24 125-141/71-89 95-100 Results - Labs CBC & BMP: 08/04/16 06:24 08/06/16 05:46
[2016-08-06] MEDS: CLOPIDOGREL 75 MG TABLET PO SCH (09:40)
[2016-08-06] MEDS: ASPIRIN CHEW 81 MG TABLET PO SCH (09:40)
[2016-08-06] MEDS: GABAPENTIN 300 MG CAPSULE PO SCH ×3 (09:40→20:17)
--- NOTE | 2016-08-06 11:02 | Nephrology Progress Note ---
Nephrology - PN: Subj Interval history: Ms. Velasquez is seen in follow-up for acute renal failure and underlying nephrotic syndrome. He is 3.3 but I do think that this is a result of acute renal failure from her initial muscle injury and myoglobinuria and I expect that creatinine to fall to its baseline. Her underlying nephrotic syndrome is bound to be chronic with this profound hypoalbuminemia. She does have a good bit of peripheral edema and we have given 160 mg of Lasix IV this morning. We will see how much effect bed has and modified diuretic doses accordingly. Certainly some people with nephrotic syndrome wind up having to take a good bit of diuretic for edema. We discussed her management with Dr. Farfan and I do think that's going to be fine to go to a swing bed more ultimately to rehabilitation thereafter. Exam (PN)-Nephrology - Vital Signs Vital signs: Period Temp Pulse Resp BP Sys/Cuello Pulse Ox Last 24 Hr 98.1 F-99.1 F 95-103 19-24 125-141/71-89 95-100 - Lab 08/04/16 06:24 08/06/16 05:46 Most recent lab results Calcium 7.4 MG/DL (8.5-10.1) L 08/06/16 05:46 Assessment and Plan (1) Peripheral arterial occlusive disease Problem details: arterial thrombus on CTA, no significant improvement in the left foot pulses and motor/sensation Status: Acute Current Visit: Yes (2) Renal failure (ARF), acute on chronic Status: Acute Current Visit: Yes
[2016-08-06] MEDS: ENOXAPARIN 30 MG/0.3 ML SYRINGE SUBCUT SCH (12:19)
[2016-08-06 13:56] LABS: Phospholipid Ab IgM, S < 9.4 MPL
--- NOTE | 2016-08-06 16:03 | Consultation ---
Assessment and Plan - Time spent with patient Time spent with patient: Less than 30 minutes (1) Loose, teeth Status: Acute Assessment and plan: Patient s/p amputation of leg claiming to have loose teeth after procedure causing her pain and unable to eat. Patient moving to swing bed tomorrow and requesting all teeth extracted. 1. will discuss with primary team on when to perform procedure. 2. consent for extraction of necessary teeth in OR 3. NPO at CT today, pain control per team Current Visit: Yes History of Present Illness - Data of Consult Consult date: 08/06/16 Requesting Physician: Isaias Farfan - Consult Narrative Reason for consult: loose teeth History of present illness: Ms. Velasquez is a 55 year old female s/p amputation last Monday 07/31 claiming to have loose teeth after surgery. No f/c, no swelling, no d/c. No dysphagia, no dyspnea. Patient going for swing bed tomorrow and would like all teeth removed due to pain and inability to eat. CC: Isaias Farfan MD - Home Medications and Allergies Home Medications: Home Medications Medication Instructions Recorded Confirmed Type Indomethacin Cap [Indocin Cap] 25 mg PO TID #30 capsule 07/25/16 07/26/16 Rx Tizanidine HCl [Zanaflex] 2 mg PO Q6H #40 capsule 07/25/16 07/26/16 Rx predniSONE TAB [PredniSONE] 20 mg PO DAILY #15 tablet 07/25/16 07/26/16 Rx Hydrocodone/Acetaminophen 1 each PO Q4H PRN 07/26/16 07/26/16 History [Hydrocodon-Acetaminophen 5-325] Allergies/Adverse Reactions: Allergies Allergy/AdvReac Type Severity Reaction Status Date / Time latex Allergy Verified 07/31/16 20:40 - Constitutional Constitutional: Present: as per HPI - EENT Nose, mouth and throat: Present: as per HPI Medical,Surgical,& Family Hx - Medical History Other: Comment Only: Miscellaneous Medical Problems (hx drug use == positive opiods , marijuana& cocaine in ER) - Surgical History Cardiac Surgeries: Comment Only: Cardiac Surgery (left fem. embolectomy&fasciotomy 07/26/16) - Family History Family History: Reports;: Family Cancer, Family Stroke Comment Only: Family Diabetes (Yes, mother), Family Heart Disease (Yes, mother& father-- mother had CABG), Family Hypertension (Yes, mother& father), Family Psychiatric Problems (father - bipolar depression) - Social History Smoking Status: Never smoker Frequency of Alcohol Use: None Type of Drug Use: None Exam - Constitutional Vitals: Period Temp Pulse Resp BP Sys/Cuello Pulse Ox Last 24 Hr 97.5 F-99.1 F 95-101 15-20 125-140/69-87 96-99 - ENT ENT exam: Present: other (no swelling, no drainage, class 2 mobiliity of teeth # 11, 23,24,25; fractured teeth #7 and 10 at gumline with erythema and clotted blood. ) Results - Labs CBC & BMP: 08/04/16 06:24 08/06/16 05:46 Lab Results: I have reviewed the past 24 hour labs
[2016-08-07] MEDS: ONDANSETRON 4 MG/2 ML VIAL IV PRN (03:28)
[2016-08-07] MEDS: HYDROmorphone 2 MG/1 ML VIAL IV PRN ×2 (03:50→07:04)
[2016-08-07 06:18] LABS: Basophils % 0.2 % (0.0-0.8); Eosinophils # 0.2 10*3/uL (0.0-0.87); Hematocrit 23.7 VOL% (35.7-47.0); Immature Granulocytes Absolute 0.97 #; Lymphocytes # 2.1 10*3/uL (1.4-4.0); Lymphocytes % 10.7 % (21.3-54.2); Mean Corpuscular HGB Conc 33.8 GM/DL (32-36); Mean Corpuscular Hemoglobin 31 PG (27-34); Mean Corpuscular Volume 90.5 FL (87-102); Mean Platelet Volume 9.1 FL (9.6-12.0); Monocytes # 1.7 10*3/uL (0.11-0.8); Monocytes % 8.9 % (1.7-12.7); Neutrophils # 14.4 10*3/uL (1.4-7.4); Neutrophils % 74.2 % (38.7-73.9); Platelet Count 598 T/CUMM (130-400); Red Blood Count 2.62 MC/CUMM (3.8-5.5); Red Cell Distribution Width 14.4 % (9.3-17.3); White Blood Count 19.4 T/CUMM (4-12)
[2016-08-07 06:49] LABS: Calcium 7.3 MG/DL (8.5-10.1); Osmolality,Calculated 290.7 MOS/KG (273-304); Potassium 4.6 MMOL/L (3.5-5.1)
[2016-08-07 06:56] LABS: Macrocytosis Slight; Platelet Estimate Increased
--- NOTE | 2016-08-07 09:30 | Event Note ---
Platelet had acute thrombosis of the left iliac and left popliteal arteries distal arteries early this very month and underwent a left below-knee amputation on July 31. This appears to be healing well and no sign of infection her left groin incision looks good to no sign of infection she has been having high white blood count although is coming down her blood count dropped from hematocrit of 30-23 with no sign of ongoing bleeding or evidence of bleeding in any way. She's been worked up for a hypercoagulable state and not has been found she has have been found to have nephrotic syndrome and her rib pain is now gone up to 3.4 she's quite edematous she's not putting out urine very well states she is having good bit of difficulty passing urine. I will replace her Love catheter today to see we can improve upon that. We've been discussing transfer to swing bed and to the rehabilitation unit but with the ongoing issue with her nephrotic syndrome increasing creatinine and edema hasn't to do so. She also reports having developed loose teeth immediately after the initial operation and she is seeing Dr. Alcantar today who probably remove those teeth in the operating room. We will therefore plan for her to stay over the weekend
[2016-08-07] MEDS ORDERED: PANTOPRAZOLE 40 MG TABLET PO ONE (09:48)
[2016-08-07] MEDS ORDERED: DIAZEPAM 5 MG TABLET PO ONE (09:48)
[2016-08-07] MEDS ORDERED: LACTATED RINGERS 1,000 ML IV SCH (10:00)
--- NOTE | 2016-08-07 10:23 | Oncology Progress Note ---
Oncology Subjective PN Interval history: Some of the clotting studies that I have ordered on this patient, including antiphospholipid antibody, homocysteine and prothrombin 87479 mutation do not even show up under lab work pending or under coagulation studies. It is very difficult to determine whether they have even been sent out. I ordered them initially on July 27 and some of those orders have completely disappeared from the record. Exam - Constitutional Vitals: Period Temp Pulse Resp BP Sys/Cuello Pulse Ox Last 24 Hr 97.8 F-98.8 F 90-105 15-20 122-158/76-87 95-99 Results - Labs CBC & BMP: 08/07/16 05:14 08/07/16 05:14 Specialty Discharge - Follow Up or Referrals Follow up with: Leoncio Stringer MD [Physician] - Cleveland Cox MD [Physician] - Isaias Farfan MD [Physician] -
[2016-08-07] MEDS ORDERED: LIDOCAINE 1%/EPI INJ 20 ML VIAL ONE (11:18)
[2016-08-07] MEDS: BISACODYL 5 MG TABLET PO SCH ×2 (12:00→22:53)
[2016-08-07] MEDS: ASPIRIN CHEW 81 MG TABLET PO SCH (12:00)
[2016-08-07] MEDS: CLOPIDOGREL 75 MG TABLET PO SCH (12:01)
[2016-08-07] MEDS: GABAPENTIN 300 MG CAPSULE PO SCH ×3 (12:01→22:36)
[2016-08-07] MEDS: ENOXAPARIN 30 MG/0.3 ML SYRINGE SUBCUT SCH (12:02)
[2016-08-07] MEDS ORDERED: PROPOFOL 200 MG/20 ML VIAL IV ONE (13:20)
[2016-08-07] MEDS ORDERED: LIDOCAINE 100 MG/5 ML SYRINGE ONE (13:20)
--- NOTE | 2016-08-07 13:20 | Operative Note ---
Date of procedure: 08/07/16 Pre-op diagnosis: carious teeth #7,10,11,17,20,21,22,23,24,25,26,28 Post-op diagnosis: same Procedure: surgical extraction of carious/periodontally involved teeth #7,10,11,17,20,21,22 ,23,24,25,26,28 Anesthesia: GETA, local Surgeon / Physician: Leoncio Stringer Estimated blood loss: none Specimens: none sent Condition: stable Disposition: PACU Results - Labs CBC & BMP: 08/07/16 05:14 08/07/16 05:14 Discharge Plan - Discharge Medications No Action Tizanidine HCl [Zanaflex] 2 mg PO Q6H #40 capsule Hydrocodone/Acetaminophen [Hydrocodon-Acetaminophen 5-325] 1 each PO Q4H PRN PRN Reason: Pain Indomethacin Cap [Indocin Cap] 25 mg PO TID #30 capsule predniSONE TAB [PredniSONE] 20 mg PO DAILY #15 tablet - Follow Up or Referral Follow Up: Leoncio Stringer MD [Physician] - Cleveland Cox MD [Physician] - Isaias Farfan MD [Physician] - - Forms/Instructions Instructions: Below the Knee Amputation (DC)
[2016-08-07] MEDS ORDERED: fentaNYL 100 MCG/2 ML VIAL ONE (13:31)
--- NOTE | 2016-08-07 13:54 | Anesthesia ---
Anesthesia Post OP - Post Ansesthetic Evaluation Patient seen in post op: Yes Resp: within normal limits CV: within normal limits Mental: within normal limits Temp: within normal limits [id number]-[id number]: within normal limits Nausea and Vomiting: within normal limits Pain: within normal limits
--- NOTE | 2016-08-07 17:35 | Nephrology Progress Note ---
Nephrology - PN: Subj Interval history: Ms. Velasquez is seen in follow-up for acute renal failure and nephrotic syndrome. Creatinine 3.4 and today she went for dental extraction. She is seen postop and is doing well. She still has considerable edema and describes Fording difficulty. Interestingly she reports a latex allergy and we are going to need to place a Love catheter so we will find a silicone catheter in place that. We discussed her management with Dr. Serrano and we will follow her here over the weekend and try to begin diuresing her. We will start with 200 mg of Lasix IV every 12 hours and add metolazone if necessary. Her hematocrit today is 23 and we will repeat that tomorrow. She is hemodynamically stable. We will begin Protonix empirically. Exam (PN)-Nephrology - Vital Signs Vital signs: Period Temp Pulse Resp BP Sys/Cuello Pulse Ox Last 24 Hr 97.8 F-99.0 F 90-108 16-20 96-138/63-90 93-99 - Lab 08/07/16 05:14 08/07/16 05:14 Most recent lab results Calcium 7.3 MG/DL (8.5-10.1) L 08/07/16 05:14 Assessment and Plan (1) Peripheral arterial occlusive disease Problem details: arterial thrombus on CTA, no significant improvement in the left foot pulses and motor/sensation Status: Acute Current Visit: Yes (2) Renal failure (ARF), acute on chronic Status: Acute Current Visit: Yes Specialty Discharge - Follow Up or Referrals Follow up with: Leoncio Stringer MD [Physician] - Cleveland Cox MD [Physician] - Isaias Farfan MD [Physician] -
[2016-08-07] MEDS: FUROSEMIDE 100 MG/10 ML VIAL IV SCH (22:38)
[2016-08-08] MEDS: HydrOXYzine PAMOATE 25 MG CAPSULE PO PRN ×2 (01:06→23:57)
[2016-08-08] MEDS: HYDROmorphone 2 MG/1 ML VIAL IV PRN ×3 (03:50→14:43)
[2016-08-08 05:52] LABS: Basophils % 0.3 % (0.0-0.8); Eosinophils # 0.2 10*3/uL (0.0-0.87); Eosinophils % 1.3 % (0.00-10.9); Hematocrit 26.8 VOL% (35.7-47.0); Hemoglobin 8.9 GM/DL (12.0-16.0); Immature Granulocytes Absolute 0.51 #; Lymphocytes # 1.3 10*3/uL (1.4-4.0); Lymphocytes % 10.5 % (21.3-54.2); Mean Corpuscular HGB Conc 33.2 GM/DL (32-36); Mean Corpuscular Hemoglobin 31 PG (27-34); Mean Corpuscular Volume 92.4 FL (87-102); Mean Platelet Volume 8.7 FL (9.6-12.0); Monocytes # 1.1 10*3/uL (0.11-0.8); Monocytes % 8.3 % (1.7-12.7); Neutrophils # 9.6 10*3/uL (1.4-7.4); Neutrophils % 75.6 % (38.7-73.9); Platelet Count 578 T/CUMM (130-400); Red Cell Distribution Width 14.2 % (9.3-17.3); White Blood Count 12.7 T/CUMM (4-12)
[2016-08-08 06:08] LABS: Alanine Aminotransferase < 6 U/L (13-56); Albumin 0.7 G/DL (3.4-5.0); Alkaline Phosphatase 112 U/L (45-117); Aspartate Amino Transferase 37 U/L (0-37); Bilirubin,Total < 0.39 MG/DL (0.2-1.0); Blood Urea Nitrogen 56 MG/DL (7-18); Calcium 7.1 MG/DL (8.5-10.1); Glucose 112 MG/DL (74-106); Osmolality,Calculated 299.1 MOS/KG (273-304); Potassium 3.9 MMOL/L (3.5-5.1); Sodium 142 MMOL/L (136-145); Total Protein 3.9 G/DL (6.4-8.3)
[2016-08-08] MEDS: PANTOPRAZOLE 40 MG TABLET PO SCH (08:21)
[2016-08-08] MEDS: ASPIRIN CHEW 81 MG TABLET PO SCH (08:22)
[2016-08-08] MEDS: BISACODYL 5 MG TABLET PO SCH ×2 (08:22→21:09)
[2016-08-08] MEDS: CLOPIDOGREL 75 MG TABLET PO SCH (08:22)
[2016-08-08] MEDS: GABAPENTIN 300 MG CAPSULE PO SCH ×3 (08:22→21:07)
[2016-08-08] MEDS: FUROSEMIDE 100 MG/10 ML VIAL IV SCH ×2 (08:23→21:51)
--- NOTE | 2016-08-08 10:08 | Event Note ---
08/08/2016 Patient is an amputation of the left lower extremity seems to be doing well at this time. Hematocrit is 26 today. The wound is clean and dry no unusual drainage present at this time. Moderate discomfort. We'll check her hematocrits tomorrow and continue present wound care
[2016-08-08] MEDS: ENOXAPARIN 30 MG/0.3 ML SYRINGE SUBCUT SCH (11:55)
--- NOTE | 2016-08-08 12:10 | Nephrology Progress Note ---
Nephrology - PN: Subj Interval history: Ms. Velasquez is seen in follow-up for acute renal failure with underlying nephrotic syndrome. Creatinine is hovering in the mid threes. She is diuresing now with 200 mg of Lasix twice a day. Silicone catheters been placed due to latex allergy. She still has considerable edema and profound hypoalbuminemia. We have of 12-1/2 g of albumin prior to tonight's dose of furosemide. Exam (PN)-Nephrology - Vital Signs Vital signs: Period Temp Pulse Resp BP Sys/Cuello Pulse Ox Last 24 Hr 98.0 F-99.6 F 101-109 16-20 96-143/63-90 93-100 - Lab 08/08/16 05:20 08/08/16 05:20 Most recent lab results Calcium 7.1 MG/DL (8.5-10.1) L 08/08/16 05:20 Assessment and Plan (1) Peripheral arterial occlusive disease Problem details: arterial thrombus on CTA, no significant improvement in the left foot pulses and motor/sensation Status: Acute Current Visit: Yes (2) Renal failure (ARF), acute on chronic Status: Acute Current Visit: Yes Specialty Discharge - Follow Up or Referrals Follow up with: Leoncio Stringer MD [Physician] - Cleveland Cox MD [Physician] - Isaias Farfan MD [Physician] -
[2016-08-08] MEDS: ALBUTEROL/IPRATROPIUM 3 ML NEB RESP TX SCH ×2 (14:15→20:51)
[2016-08-08] MEDS ORDERED: ALBUMIN 25% 12.5 GM in PREMIX 1 EACH IV ONE (20:00)
[2016-08-09] MEDS: ALBUTEROL/IPRATROPIUM 3 ML NEB RESP TX SCH ×4 (00:47→19:26)
[2016-08-09 04:44] LABS: Basophils % 0.3 % (0.0-0.8); Eosinophils # 0.2 10*3/uL (0.0-0.87); Eosinophils % 1.6 % (0.00-10.9); Hematocrit 23.2 VOL% (35.7-47.0); Hemoglobin 7.7 GM/DL (12.0-16.0); Immature Granulocytes % 2.8 %; Immature Granulocytes Absolute 0.41 #; Lymphocytes # 1.8 10*3/uL (1.4-4.0); Lymphocytes % 11.8 % (21.3-54.2); Mean Corpuscular HGB Conc 33.2 GM/DL (32-36); Mean Corpuscular Hemoglobin 31 PG (27-34); Mean Corpuscular Volume 93.2 FL (87-102); Mean Platelet Volume 8.9 FL (9.6-12.0); Monocytes # 1.2 10*3/uL (0.11-0.8); Monocytes % 8.4 % (1.7-12.7); Neutrophils # 11.1 10*3/uL (1.4-7.4); Neutrophils % 75.1 % (38.7-73.9); Platelet Count 601 T/CUMM (130-400); Red Blood Count 2.49 MC/CUMM (3.8-5.5); Red Cell Distribution Width 14.3 % (9.3-17.3); White Blood Count 14.8 T/CUMM (4-12)
[2016-08-09 05:19] LABS: Alanine Aminotransferase 9 U/L (13-56); Alkaline Phosphatase 115 U/L (45-117); Aspartate Amino Transferase 41 U/L (0-37); Bilirubin,Total < 0.39 MG/DL (0.2-1.0); Blood Urea Nitrogen 51 MG/DL (7-18); Calcium 7.6 MG/DL (8.5-10.1); Glucose 129 MG/DL (74-106); Osmolality,Calculated 298.1 MOS/KG (273-304); Potassium 4.3 MMOL/L (3.5-5.1); Sodium 142 MMOL/L (136-145); Total Protein 4.4 G/DL (6.4-8.3)
[2016-08-09] MEDS: HYDROmorphone 2 MG/1 ML VIAL IV PRN ×3 (05:55→13:11)
[2016-08-09] MEDS ORDERED: SODIUM CHLORIDE 0.9% 250 ML IV PRN (08:06)
[2016-08-09] MEDS ORDERED: ALBUMIN 25% 12.5 GM in PREMIX 1 EACH IV ONE (08:26)
[2016-08-09] MEDS: ASPIRIN CHEW 81 MG TABLET PO SCH (09:08)
[2016-08-09] MEDS: CLOPIDOGREL 75 MG TABLET PO SCH (09:09)
[2016-08-09] MEDS: metOLazone 5 MG TABLET PO SCH (09:17)
[2016-08-09] MEDS: GABAPENTIN 300 MG CAPSULE PO SCH ×3 (09:17→22:13)
[2016-08-09] MEDS: FUROSEMIDE 100 MG/10 ML VIAL IV SCH ×2 (09:18→15:55)
[2016-08-09] MEDS: PANTOPRAZOLE 40 MG TABLET PO SCH (09:18)
[2016-08-09] MEDS: BISACODYL 5 MG TABLET PO SCH ×2 (09:23→22:14)
--- NOTE | 2016-08-09 09:36 | Nephrology Progress Note ---
Nephrology - PN: Subj Interval history: Ms. Velasquez is seen in follow-up of her acute on chronic renal impairment. He had a creatinine today 3.6. She is putting out about 2 L of urine with the current diuretic so we need to increase that. She still has a good bit of edema. We will add metolazone 10 mg daily and we will give another 12-1/2 g of albumin today. She is lying flat breathing comfortably. Exam (PN)-Nephrology - Vital Signs Vital signs: Period Temp Pulse Resp BP Sys/Cuello Pulse Ox Last 24 Hr 97.8 F-98.9 F 80-112 12-20 126-146/67-92 93-100 - Lab 08/09/16 04:13 08/09/16 04:13 Most recent lab results Calcium 7.6 MG/DL (8.5-10.1) L 08/09/16 04:13 Assessment and Plan (1) Peripheral arterial occlusive disease Problem details: arterial thrombus on CTA, no significant improvement in the left foot pulses and motor/sensation Status: Acute Current Visit: Yes (2) Renal failure (ARF), acute on chronic Status: Acute Current Visit: Yes Specialty Discharge - Follow Up or Referrals Follow up with: Leoncio Stringer MD [Physician] - Cleveland Cox MD [Physician] - Isaias Farfan MD [Physician] -
--- NOTE | 2016-08-09 09:48 | Event Note ---
08/09/2016. Patient remains stable at this point time but her hematocrits down to 23. We' ll transfuse her and hold her aspirin and Plavix for now since she still on the Lovenox. Other than that she is progressing well without any unusual problems.
[2016-08-09] MEDS: ENOXAPARIN 30 MG/0.3 ML SYRINGE SUBCUT SCH (13:11)
[2016-08-09] MEDS: HydrOXYzine PAMOATE 25 MG CAPSULE PO PRN (22:13)
[2016-08-10] MEDS: ALBUTEROL/IPRATROPIUM 3 ML NEB RESP TX SCH ×4 (01:13→18:40)
[2016-08-10] MEDS: HYDROmorphone 2 MG/1 ML VIAL IV PRN ×2 (04:24→17:46)
[2016-08-10] MEDS: FUROSEMIDE 100 MG/10 ML VIAL IV SCH ×2 (08:24→17:40)
[2016-08-10] MEDS: metOLazone 5 MG TABLET PO SCH (08:27)
[2016-08-10] MEDS: GABAPENTIN 300 MG CAPSULE PO SCH ×3 (08:27→20:12)
[2016-08-10] MEDS: PANTOPRAZOLE 40 MG TABLET PO SCH (08:27)
[2016-08-10 09:08] LABS: HIV Antigen/Antibody Result Nonreactive (Nonreactive)
[2016-08-10] MEDS: BISACODYL 5 MG TABLET PO SCH ×2 (09:15→20:13)
--- NOTE | 2016-08-10 09:34 | Oncology Progress Note ---
Oncology Subjective PN Interval history: There still coagulation studies that are not back. The ones that are back include negative Ethan's viper antivenin which test for lupus anticoagulant, lupus anticoagulant testing which is negative, factor V Leiden which is negative and the patient has a low anti-thrombin 3 of 60 which, in the face of anticoagulants may not be that reliable. Studies that are still pending include a homocystine level and a prothrombin 54969 mutation test. I am ordering them again. Exam - Constitutional Vitals: Period Temp Pulse Resp BP Sys/Cuello Pulse Ox Last 24 Hr 97.2 F-99.9 F 97-109 14-24 132-162/74-98 93-100 Results - Labs CBC & BMP: 08/09/16 04:13 08/09/16 04:13 Specialty Discharge - Follow Up or Referrals Follow up with: Leoncio Stringer MD [Physician] - Cleveland Cox MD [Physician] - Isaias Farfan MD [Physician] -
--- NOTE | 2016-08-10 09:40 | Event Note ---
Ms. Velasquez appears to feel quite a bit better today states she has more energy she's got much less pain in her left lower leg and this is healing think we will achieve primary healing of the below-knee amputation. I think she could go to swing bed a rehabilitation dialysis since Dr. Cox is ready. She did have transfusion over the weekend but BUN/creatinine is back down to 23 I think I'll stop the Lovenox and and Trinsicon to try to improve her blood counts without further transfusion
--- NOTE | 2016-08-10 10:02 | Nephrology Progress Note ---
Nephrology - PN: Subj Interval history: Ms. Velasquez is seen in follow-up of her acute renal failure superimposed on known underlying nephrotic syndrome. Better and is now diuresing with IV Lasix and we are beginning by mouth metolazone this morning. She put out over 4 L of urine yesterday and will improve her edema by doing that. She asked me about when she might be ready to go to the swing bed and I think going tomorrow may be reasonable we could continue her diuretic therapy there. We will check some lab in the morning and continue to follow renal function. Hopefully she will allow diuresis without elevating her creatinine. Exam (PN)-Nephrology - Vital Signs Vital signs: Period Temp Pulse Resp BP Sys/Cuello Pulse Ox Last 24 Hr 97.2 F-99.9 F 97-109 14-24 132-162/74-98 93-100 - Lab 08/09/16 04:13 08/09/16 04:13 Most recent lab results Calcium 7.6 MG/DL (8.5-10.1) L 08/09/16 04:13 Assessment and Plan (1) Peripheral arterial occlusive disease Problem details: arterial thrombus on CTA, no significant improvement in the left foot pulses and motor/sensation Status: Acute Current Visit: Yes (2) Renal failure (ARF), acute on chronic Status: Acute Current Visit: Yes Specialty Discharge - Follow Up or Referrals Follow up with: Leoncio Stringer MD [Physician] - Cleveland Cox MD [Physician] - Isaias Farfan MD [Physician] -
--- NOTE | 2016-08-10 11:49 | Pathology Report from [facility] ---
ACCESSION # : [id number] PATIENT NAME : Carlene Velasquez ORDERING DR : Leoncio Stringer DDS CLINICAL HX: Painful loose teeth with inability to eat POST-OP DX: Same SPECIMEN INFO: Teeth #7, #10, #11, #17, #20 - #26, #28 GROSS DESCRIPTION: The specimen is received fresh labeled with the patient's name Carlene Velasquez consists of multiple teeth with decay present. Submitted for gross exam only. DIAGNOSIS FOR CARLENE VELASQUEZ: Multiple teeth, GROSS ONLY. SERVICE DATE: 08/08/2016 REPORT DATE: 08/10/2016 PATHOLOGIST: Mary Grubbs M.D. [facility]
[2016-08-10] MEDS: HydrOXYzine PAMOATE 25 MG CAPSULE PO PRN (23:13)
[2016-08-11] MEDS: ALBUTEROL/IPRATROPIUM 3 ML NEB RESP TX SCH ×3 (00:35→12:57)
[2016-08-11 04:50] LABS: Basophils % 0.3 % (0.0-0.8); Eosinophils # 0.3 10*3/uL (0.0-0.87); Eosinophils % 2.5 % (0.00-10.9); Hematocrit 26.9 VOL% (35.7-47.0); Hemoglobin 9.1 GM/DL (12.0-16.0); Immature Granulocytes % 1.6 %; Lymphocytes # 2.2 10*3/uL (1.4-4.0); Lymphocytes % 17.5 % (21.3-54.2); Mean Corpuscular HGB Conc 33.8 GM/DL (32-36); Mean Corpuscular Hemoglobin 30 PG (27-34); Mean Corpuscular Volume 89.7 FL (87-102); Mean Platelet Volume 8.8 FL (9.6-12.0); Monocytes # 1.1 10*3/uL (0.11-0.8); Monocytes % 8.9 % (1.7-12.7); Neutrophils # 8.8 10*3/uL (1.4-7.4); Neutrophils % 69.2 % (38.7-73.9); Platelet Count 553 T/CUMM (130-400); Red Cell Distribution Width 14.2 % (9.3-17.3); White Blood Count 12.7 T/CUMM (4-12)
[2016-08-11 05:38] LABS: Alanine Aminotransferase < 9 U/L (13-56); Albumin 0.9 G/DL (3.4-5.0); Alkaline Phosphatase 116 U/L (45-117); Aspartate Amino Transferase 29 U/L (0-37); Bilirubin,Total < 0.39 MG/DL (0.2-1.0); Blood Urea Nitrogen 48 MG/DL (7-18); Calcium 7.6 MG/DL (8.5-10.1); Glucose 98 MG/DL (74-106); Osmolality,Calculated 302.6 MOS/KG (273-304); Potassium 3.9 MMOL/L (3.5-5.1); Sodium 146 MMOL/L (136-145); Total Protein 4.4 G/DL (6.4-8.3)
[2016-08-11] MEDS: HYDROmorphone 2 MG/1 ML VIAL IV PRN ×2 (06:44→13:13)
[2016-08-11] MEDS ORDERED: ALBUMIN 25% 12.5 GM in PREMIX 1 EACH IV ONE (08:14)
--- NOTE | 2016-08-11 08:30 | Nephrology Progress Note ---
Nephrology - PN: Subj Interval history: Ms. Velasquez is seen in follow-up her acute renal failure superimposed on a chronic nephrotic syndrome. She is diuresing now and is less edematous than still has considerable edema. He is important that we go ahead and continue with her diuresis in order to aid with wound healing over left stump. Her creatinine is now 3.8 and does not seem to be following. For now will continue to diurese her and we'll give her supplemental albumin today. Her serum albumin is 0.9. At some point she will need a renal biopsy and will have to coordinate that with the interruption of her Lovenox therapy and holding Plavix. As long as she has the PICC line I think we can use IV Lasix but we can certainly go to by mouth when it is necessary. I think for now she should keep her catheter in the bladder since we'll try to diurese her vigorously and she can't move very well. Exam (PN)-Nephrology - Vital Signs Vital signs: Period Temp Pulse Resp BP Sys/Cuello Pulse Ox Last 24 Hr 98.1 F-99.4 F 91-110 18-24 136-142/77-91 94-100 - Lab 08/11/16 04:20 08/11/16 04:20 Most recent lab results Calcium 7.6 MG/DL (8.5-10.1) L 08/11/16 04:20 Assessment and Plan (1) Peripheral arterial occlusive disease Problem details: arterial thrombus on CTA, no significant improvement in the left foot pulses and motor/sensation Status: Acute Current Visit: Yes (2) Renal failure (ARF), acute on chronic Status: Acute Current Visit: Yes Specialty Discharge - Follow Up or Referrals Follow up with: Leoncio Stringer MD [Physician] - Cleveland Cox MD [Physician] - Isaias Farfan MD [Physician] -
--- NOTE | 2016-08-11 08:51 | Oncology Progress Note ---
Oncology Subjective PN Interval history: Laboratory has not even acknowledged whether the prothrombin 64163 gene mutation and homocystine levels have been sent off. I do not have any idea about the status of these 2 studies. I originally ordered them on July 27 and they are still not back. Exam - Constitutional Vitals: Period Temp Pulse Resp BP Sys/Cuello Pulse Ox Last 24 Hr 98.1 F-99.4 F 91-110 18-24 136-142/77-91 94-100 Results - Labs CBC & BMP: 08/11/16 04:20 08/11/16 04:20 Specialty Discharge - Follow Up or Referrals Follow up with: Leoncio Stringer MD [Physician] - Cleveland Cox MD [Physician] - Isaias Farfan MD [Physician] -
[2016-08-11] MEDS: FUROSEMIDE 100 MG/10 ML VIAL IV SCH (08:55)
[2016-08-11] MEDS ORDERED: MULTIVITAMIN (INTRINSIC) CAPSULE PO SCH (09:00)
[2016-08-11] MEDS: PANTOPRAZOLE 40 MG TABLET PO SCH (09:01)
[2016-08-11] MEDS: GABAPENTIN 300 MG CAPSULE PO SCH ×2 (09:01→14:24)
[2016-08-11] MEDS: metOLazone 5 MG TABLET PO SCH (09:02)
[2016-08-11] MEDS: BISACODYL 5 MG TABLET PO SCH (09:08)
--- NOTE | 2016-08-11 09:51 | Discharge Summary ---
Hospital Course - Hospital Course Hospital Course: 55AAF admitted by dr mccloud w acute ischemic left foot w no motor or sensory function. she underwent thrombectomy and fasciotomy by dr mccloud and dr reed on 07/26/16 followed by attempted thrombolysis by dr guerra in IR on 07/27. pt continued to have cold pulseless leg w pain so dr mccloud took her for left BKA on 07/31. her stump looks good. there is decreased edema and she has a dark area on lateral corner that is being watched right now. dr calvert followed her for hematology and so far her studies have been negative. he is awaiting several more tests. dr cox from nephrology was also consulted for acute renal failure superimposed on a chronic nephrotic syndrome. she needs to keep her villegas and PICC line for diuresing and albumin supplementation. her creatinine is stable at 3.8. she will need a renal biopsy at some point. 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 her pain is controlled on her current regimen. Dr Stringer from oral surgery was consulted for pts complaints of loose teeth. he did a surgical extraction of 12 teeth, which is all of them, per pts request. pt is now ready for transfer to [facility]. will notify dr mccloud and dr cox of her room number at [facility]. will set up follow up w dr calvert for about 1 month. no follow up needed w dr stringer or dr carmen. - Time spent with patient Time with patient DS: Less than 30 minutes Specialty Discharge - Follow Up or Referrals Follow up with: Leoncio Stringer MD [Physician] - Cleveland Cox MD [Physician] - Isaias Mccloud MD [Physician] - Discharge Plan - Discharge Data Disposition: Swing Bed, [facility] Based, [facility] Condition at Discharge: Stable Discharge Diet: other (soft diet-no teeth) Activity: as per physical therapy Hygiene: may shower Contact your physician if you experience:: fever over 101, Redness or swelling, pain uncontrolled by pain medications Wound / Dressing Care Instructions: ok to shower daily w mild soap and water, dry left stump w alcohol pads, adaptic to staple line, dry 4x4, cast padding and young wrap. steris already to left groin, keep clean - Discharge Medications New Albuterol/Ipratropium Neb [Duoneb] 3 ml RESP TX RT Q6H nebulization solution Furosemide Inj [Lasix Inj] 200 mg IV BID DIURETIC vial Multivitamin (Intrinsic) [Trinsicon] 1 capsule PO DAILY capsule Bisacodyl Tab [Dulcolax Tab] 10 mg PO BID tablet Gabapentin Cap/Tab [Neurontin Cap/Tab] 300 mg PO TID #90 capsule HYDROcodone/ACETAMIN 10-325 [[place] 10-325] 1 tablet PO Q6H PRN #30 tablet PRN Reason: Pain Moderate (4-7) Heparin Lock Flush 50 units IV Q12H syringe HydrOXYzine PAMOATE CAP [Vistaril Cap] 100 mg PO Q8HR PRN #0 capsule PRN Reason: Pain Moderate (4-7) Pantoprazole Tab [Protonix Tab] 40 mg PO DAILY tablet hydrALAZINE INJ [Apresoline Inj] 10 mg IV Q6H PRN #0 vial PRN Reason: Hypertension metOLazone [Zaroxolyn] 10 mg PO DAILY tablet Continue Tizanidine HCl [Zanaflex] 2 mg PO Q6H #40 capsule Discontinued Hydrocodone/Acetaminophen [Hydrocodon-Acetaminophen 5-325] 1 each PO Q4H PRN PRN Reason: Pain Indomethacin Cap [Indocin Cap] 25 mg PO TID #30 capsule predniSONE TAB [PredniSONE] 20 mg PO DAILY #15 tablet - Follow Up or Referral Follow Up: Leoncio Stringer MD [Physician] - (no follow up needed) Cleveland Cox MD [Physician] - (notify of room number) Isaias Mccloud MD [Physician] - (notify of room number) Bernardo Calvert MD [Physician] - (call office and see when he needs follow up) - Forms/Instructions Instructions: Below the Knee Amputation (DC) Exam - Constitutional Vitals: Period Temp Pulse Resp BP Sys/Cuello Pulse Ox Last 24 Hr 98.1 F-99.4 F 91-110 18-24 136-142/77-91 94-100 Discharge Results Procedures and tests throughout hospitalization: Pending Orders 08/07/16 10:44 Homocysteine Stat Phospholipid Ab IgA, S Stat Phospholipid Ab, IgG/M Stat Prothrombin [id number] Mutation, Stat 08/10/16 10:38 Homocysteine Stat Prothrombin [id number] Mutation, Stat Labs on day of discharge: Labs from last 24 hours 08/11/16 08/11/16 04:20 04:20 WBC 12.7 H RBC 3.00 L D Hgb 9.1 L Hct 26.9 L MCV 89.7 MCH 30 MCHC 33.8 RDW 14.2 Plt Count 553 H MPV 8.8 L Neut % (Auto) 69.2 Lymph % (Auto) 17.5 L [place] % (Auto) 8.9 Eos % (Auto) 2.5 Baso % (Auto) 0.3 Neut # (Auto) 8.8 H Lymph # (Auto) 2.2 [place] # (Auto) 1.1 H Eos # (Auto) 0.3 Baso # (Auto) 0.0 Immature Gran % 1.6 Nucleated RBC % 0.0 Immature Gran # 0.20 Nucleated RBCs # 0.00 Sodium 146 H Potassium 3.9 Chloride 107 Carbon Dioxide 26 Anion Gap 16.9 H BUN 48 H Creatinine 3.80 H GFR Calculation 17 BUN/Creatinine Ratio 12.00 Glucose 98 Calculated Osmolality 302.6 Calcium 7.6 L Total Bilirubin < 0.39 AST 29 ALT < 9 L Alkaline Phosphatase 116 Total Protein 4.4 L Albumin 0.9 L Globulin 3.5 Albumin/Globulin Ratio 0.2 L DS: Provider Date of admission: 07/26/16 17:28 Primary care physician: . No PCP Attending physician on admission: Isaias Mccloud MD Consults: 07/26/16 20:09 Consult to Pharmacy [CONS] Routine Reason for Pharmacy Consult: Adjust Meds Renal Funct 07/27/16 09:02 Consult to Physician [CONS] Routine Comment: possible clotting disorder Consulting Provider: Consult to Specialist Group: Hematology 07/29/16 10:39 Consult to Physical Therapy [CONS] Routine Reason for Physical Therapy: Evaluate and Treat 07/31/16 10:02 Consult to Case Mgmt/Social Srvs [CONS] Routine Reason for Case Mgmt/Social Srvs: Rehab Consult Comment: For Wednesday08/03/16 12:47 Consult to Physician [CONS] Routine Comment: Consulting Provider: Cleveland Cox Consulting Provider Notified: Yes When should Consulting Provider be notified: Now Consult to Specialist Group: Nephrology Person Notified: natalee wong Date Notified: 08/03/16 Time Notified: 12:57 08/04/16 09:38 Consult to Physician [CONS] Routine Comment: s\p left BKA, pain control help Consulting Provider: Abhinav Carmen Consulting Provider Notified: Yes When should Consulting Provider be notified: Now Consult to Specialist Group: Pain Management When should Consulting Provider be notified: Now Person Notified: alejandra wong Date Notified: 08/04/16 Time Notified: 09:59 08/06/16 08:18 Consult to Physician [CONS] Routine Comment: complains of loose,painful teeth Consulting Provider: Leoncio Stringer Consulting Provider Notified: Yes When should Consulting Provider be notified: Now Person Notified: dr. stringer called [facility] talked with doctor Date Notified: 08/06/16 Time Notified: 09:07 Discharging clinician: WILLIAM Phillips Expected date of discharge: 08/11/16
[2016-08-11] MEDS: ONDANSETRON 4 MG/2 ML VIAL IV PRN (13:19)
[2016-08-11 14:26] LABS: Phospholipid Ab IgM, S < 9.4 MPL
[2016-08-11 16:09] VITALS: BP 135/79
[2016-08-12 14:16] LABS: Homocysteine 18 mcmol/L
[2016-08-12 14:16] LABS: Homocysteine 22 mcmol/L
--- NOTE | 2016-09-28 22:32 | Operative Note ---
DATE: 07/26/2016 DIAGNOSIS: CARIES TEETH #7, 10, 11, 17, 20, 21, 22, 23, 24, 25, 26, 28. SURGICAL EXTRACTION WAS PE RFORMED OF ALL #7, 10, 11, 17, 20, 21, 22, 23, 24, 25, 26, AND 28. SURGERY PERFORMED: SURGICAL EXTRACTION OF TEETH #7, 10, 11, 17, 20, 21, 22, 23, 24, 25, 26, AND 28. SURGEON: Leoncio Stringer DMD MD ANESTHESIA: General via orotracheal tube. DESCRIPTION OF OPERATION: The patient was taken to the operating area in a sedated condition and pl aced in a supine position on the operating room table. After the successful induction of anesthesia and the placement of an oral endotracheal tube, the patient was prepped and draped in the usual man ner for an intraoral surgical procedure. Attention was directed intraorally. The oropharynx was maldonado ctioned free of any secretions and debris. A moistened throat pack was placed about the endotrachea l tube. Lidocaine 2% with 1:100,000 epinephrine was infiltrated in the maxillary labial areas bilat erally into the bilateral ramus areas of the mandible to get bilateral inferior alveolar nerve block s. Attention was directed to the maxilla where mucoperiosteal flap was made to expose teeth #7, 10, 11. Teeth #7, 10, 11 were all extracted without any complications. The sockets were curettaged. Bone file was used to smoothen the maxilla and irrigation was done with normal saline solution. The area was then closed with 3-0 chromic suture in a running fashion. Attention was then directed to the mandible where a mucoperiosteal flap was used to expose teeth #17, 20, 21, 22, 23, 24, 25, 26, 2 8. Teeth #17, 20, 21, 22, 23, 24, 25, 26, 28 were elevated and extracted completely without any com plication. The socket was then curettaged. The bone file was used to smoothen the mandible and irr igation was done copiously with normal saline solution. The site was then closed with 3-0 chromic s uture in the running fashion. The patient's sponge count and needle counts were correct at the term ination of operation. The patient tolerated the procedure well, extubated in the operating room, an d transferred to the recovery area in a stable condition.
== END 2016-08-11 16:00 | disposition swing bed (61) | DRG 240 ==
LOC: N.ED 13:12 → N.EDINP 17:28 → N.CC 18:03 → N.3E 07-29 17:12
PROVIDERS: ADMIT Surgery; ATTEND Surgery
PROC: IRURORE (2016-07-28 14:30)

== ENCOUNTER 2016-08-28 10:51 | Inpatient (IN) ==
[2016-08-28] MEDS ORDERED: fentaNYL 100 MCG/2 ML VIAL IV STA (11:15)
[2016-08-28] MEDS ORDERED: ONDANSETRON 4 MG/2 ML VIAL IV STA (11:16)
[2016-08-28] MEDS ORDERED: fentaNYL 100 MCG/2 ML VIAL ONE (11:18)
[2016-08-28] MEDS ORDERED: ONDANSETRON 4 MG/2 ML VIAL ONE (11:18)
--- NOTE | 2016-08-28 11:24 | Emergency Department Note ---
Liliane Enriquez Brittany, am scribing for, and in the presence of, Howard Thomas MD 11: 21. Martha Enriquez James D, MD, personally performed the services described in this documentation, ascribed by Mehnaz Momin in my presence, and it is both accurate and complete . Arrival - Arrival Chief Complaint: Extremity Problem Stated Complaint: possible leg infection ED Nursing Triage Note: PT C/O PAIN AND DRAINAGE TO STUMP ON LLE. PT HAD LEFT BKA ON JUL [address] FARFAN. PT WAS DISCHARGED HOME YESTERDAY FROM [facility]. Mode of Arrival: Wheelchair Limitations: No Limitations Source: Patient - History of Present Illness HPI Narrative: This is a 55 y/o black female,who presents to the ED with c/o LLE pain which started yesterday. Her family states pt had a BKA exactly 1 month ago by . She states she has told the home health nurse about this. She notes drainage to the site. Pt has no other complaints/pain in the ED at this time. Pt has a PMHx of recurring UTIs, GERD, BKA, pelvic DVT, and LLE DVT. Pt has had a left fem. embolectomy and fasciotomy. Pt has a family medical Hx of cancer, diabetes, heart disease, HTN, bipolar and stroke. Pt denies a social Hx. Onset (ago): day(s) (Started yesterday) Consistency: constant Severity: moderate Date of Last Menstrual Period: MENOPAUSE Allergies/Adverse Reactions: Allergies Allergy/AdvReac Type Severity Reaction Status Date / Time latex Allergy RASH Verified 08/28/16 11:03 Home Medications: Home Medications Medication Instructions Recorded Confirmed Type Tizanidine HCl [Zanaflex] 2 mg PO Q6H #40 capsule 07/25/16 08/28/16 Rx Albuterol/Ipratropium Neb [Duoneb] 3 ml RESP TX RT Q6H nebulization 08/11/16 Rx solution HYDROcodone/ACETAMIN 10-325 [[place] 1 tablet PO Q6H PRN #30 tablet 08/11/1608/28 Rx 10-325] Multivitamin (Intrinsic) 1 capsule PO DAILY capsule 08/11/16 08/28/16 Rx [Trinsicon] Aspirin EC Tab 81 mg PO DAILY tablet 08/27/16 08/28/16 Rx Clopidogrel [Plavix] 75 mg PO DAILY #30 tablet 08/27/16 08/28/16 Rx Folic Acid Tab 4 mg PO DAILY #30 tablet 08/27/16 08/28/16 Rx Furosemide Tab [Lasix Tab] 160 mg PO BID DIURETIC #60 tablet 08/27/16 08/28/16 Rx Gabapentin Cap/Tab [Neurontin 600 mg PO TID #60 tablet 08/27/16 08/28/16 Rx Cap/Tab] metOLazone [Zaroxolyn] 5 mg PO DAILY tablet 08/27/16 08/28/16 Rx Review of System - Review of System 12 point system: reviewed and no additional remarkable complaints except as stated - Review of System Musculoskeletal: Present: leg pain (LLE Pain and drainage) Medical,Surgical,& Family Hx - Medical History Genitourinary: History of: Recurring Urinary Tract Infections (previous UTI) Gastrointestinal: History of: GERD Musculoskeletal: History of: Amputation (Left BKA) Hematology: History of: Clotting Problems (Pelvic DVT, Left Lower leg DVT) Other: History of: Miscellaneous Medical Problems (hx drug use == positive opiods, 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 embolectomy& fasciotomy 07/26/16) Neurologic Surgeries: Patient denies: Neurologic Surgery - Family History Family History: Reports;: Family Cancer, Family Stroke Comment Only: Family Diabetes (Yes, mother), Family Heart Disease (Yes, mother& father-- mother had CABG), Family Hypertension (Yes, mother& father), Family Psychiatric Problems (father - bipolar depression) - Social History Smoking Status: Never smoker Frequency of Alcohol Use: None Type of Drug Use: None Exam Vital Signs: Vital Signs Temperature 97.5 F L 08/28/16 10:58 Pulse Rate 113 H 08/28/16 12:01 Respiratory Rate 17 08/28/16 12:01 Blood Pressure 122/80 08/28/16 12:01 O2 Sat by Pulse Oximetry 100 08/28/16 12:01 GENERAL: This is a well-nourished well-developed black female in no apparent distress. VITAL SIGNS: Reviewed HEENT: Head is atraumatic and normocephalic. Pupils are equal round react to light. Extraocular movements are intact. Oropharynx is benign with moist mucous membranes. NECK: Neck is soft and supple without tenderness. There are no masses. There is no lymphadenopathy. LUNGS: Lungs are clear to auscultation. Chest rises symmetrically. There is no chest wall tenderness. CV: Heart is regular rate and rhythm without murmurs rubs or gallops. ABDOMEN: Abdomen is soft, nontender to palpation. There are no abdominal abnormal masses palpated. There is no organomegaly. Bowel sounds are present and active. SKIN: Skin is warm and dry. No rash. EXTREMITIES: Patient has a left BKA with a portion of her incision healing well however the lateral portion of her incision has an eschar with some surrounding purulent drainage. There is no erythema or induration.. NEUROLOGIC: Awake alert and oriented 4. Cranial nerves II through XII are grossly intact. Motor is 5 over 5 in all extremities bilaterally. Course - Consultations Consultation #1: Discussed with Dr. Ferraro. Patient will be admitted to his service and Dr. Farfan' s absence. Patient will be held n.p.o. for surgery later today. Patient will be started on IV antibiotics. Time: 11:26 Results - Labs CBC & BMP: 08/28/16 11:32 08/28/16 11:32 Lab Results: I have reviewed the patients labs Disposition Clinical Impression: Peripheral vascular disease, Status post below knee amputation of left lower extremity, Wound dehiscence, Anemia Case discussed with: patient, patient's family Disposition: Still a Patient Condition: Stable Time of Disposition: 11:25
[2016-08-28 11:49] LABS: Basophils % 0.2 % (0.0-0.8); Eosinophils # 0.3 10*3/uL (0.0-0.87); Eosinophils % 2.1 % (0.00-10.9); Hematocrit 19.8 VOL% (35.7-47.0); Hemoglobin 6.6 GM/DL (12.0-16.0); Immature Granulocytes % 2.4 %; Immature Granulocytes Absolute 0.31 #; Lymphocytes # 2.3 10*3/uL (1.4-4.0); Lymphocytes % 17.7 % (21.3-54.2); Mean Corpuscular HGB Conc 33.3 GM/DL (32-36); Mean Corpuscular Hemoglobin 30 PG (27-34); Mean Corpuscular Volume 90.4 FL (87-102); Mean Platelet Volume 8.7 FL (9.6-12.0); Monocytes # 0.9 10*3/uL (0.11-0.8); Monocytes % 6.8 % (1.7-12.7); Neutrophils # 9.2 10*3/uL (1.4-7.4); Neutrophils % 70.8 % (38.7-73.9); Platelet Count 761 T/CUMM (130-400); Red Blood Count 2.19 MC/CUMM (3.8-5.5); Red Cell Distribution Width 14.1 % (9.3-17.3)
--- NOTE | 2016-08-28 11:55 | XRay Report ---
Portable chest Date: 08/28/2016 Clinical history: Respiratory preoperative evaluation Comparison: None Technique: Portable AP sitting chest Findings: The heart is normal in size. Interval removal of the left arm PICC line. Motion artifact with minimal atelectasis. 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 Minimal degenerative changes. Impression: Motion artifact with minimal atelectasis. Removal of the left arm PICC line.. PROCEDURE INTERPRETED AT [facility] DEPARTMENT OF RADIOLOGY Final Report Signed by: Dr. Caitlyn Teague
[2016-08-28 12:11] LABS: Calcium 6.8 MG/DL (8.5-10.1); Osmolality,Calculated 293.7 MOS/KG (273-304); Potassium 3.7 MMOL/L (3.5-5.1)
[2016-08-28] MEDS ORDERED: ONDANSETRON 4 MG/2 ML VIAL IV PRN ×2 (13:26→16:35)
[2016-08-28] MEDS ORDERED: SODIUM CHLORIDE 0.9% 250 ML IV PRN ×2 (13:39→13:43)
[2016-08-28] MEDS: LACTATED RINGERS 1,000 ML IV SCH ×2 (16:16→22:03)
[2016-08-28] MEDS: PIPERACILLIN/TAZOBACTAM 3,375 MG in SODIUM CHLORIDE 0.9% 100 ML IV SCH ×2 (16:17→22:05)
[2016-08-28] MEDS ORDERED: ALUMINUM/MAGNES/SIMETH MAX STR 30 ML UDCUP PO PRN (16:26)
[2016-08-28] MEDS ORDERED: BISACODYL 10 MG SUPP RECTAL PRN (16:26)
--- NOTE | 2016-08-28 16:41 | General Surg History&Physical ---
Assessment and Plan - Time spent with patient Time spent with patient: Greater than 30 minutes (1) Status post below knee amputation of left lower extremity Status: Acute Assessment and plan: Impression: 1. Status post below the knee amputation left lower extremity 2. Pain and ischemic changes lateral aspect of the BKA 3. History of ileal femoral occlusive disease 4. Anemia Plan: We will start some local wound care to this area. Transfuse today to get her create up She may need revision of this stopped at some point. Current Visit: Yes History of Present Illness Chief complaint: Infected draining left BKA amputated stump History of present illness: Ms. Velasquez is a 55 year old female -[place] who came to the emergency room because of pain and drainage from the left BK amputation stump. Cannot pull up the old record to know exactly what date this was performed but she has a high B-K amputation stump and has apparently been in rehab or swing bed for some time before going home. She began to have some pain and swelling on the lateral aspect of the stump with it a little bit at this time. It sounds like that she had a iliac occlusion the Dr. Farfan had a cleanout but it was unable to save the leg at that time. She is not a diabetic and she denies smoking. Following improvement of the upper part of the leg he had amputate the lower leg at this time. She now has an open area with some skin changes on the lateral aspect of the became to a stump with some necrotic tissue present suggestive of evidence of infection. Cultures have been taken and she started on some antibiotics. Patient is on Plavix and is noted that her hematocrit is 19 today so we will hold the Plavix and transfuse her 3 units of packed cells. We may need to resume the Plavix at some point we may have a few days we can be off of it. Home Medications Medication Instructions Recorded Confirmed Type Tizanidine HCl [Zanaflex] 2 mg PO Q6H #40 capsule 07/25/16 08/28/16 Rx Albuterol/Ipratropium Neb [Duoneb] 3 ml RESP TX RT Q6H nebulization 08/11/16 Rx solution HYDROcodone/ACETAMIN 10-325 [[place] 1 tablet PO Q6H PRN #30 tablet 08/11/1608/28 Rx 10-325] Multivitamin (Intrinsic) 1 capsule PO DAILY capsule 08/11/16 08/28/16 Rx [Trinsicon] Aspirin EC Tab 81 mg PO DAILY tablet 08/27/16 08/28/16 Rx Clopidogrel [Plavix] 75 mg PO DAILY #30 tablet 08/27/16 08/28/16 Rx Folic Acid Tab 4 mg PO DAILY #30 tablet 08/27/16 08/28/16 Rx Furosemide Tab [Lasix Tab] 160 mg PO BID DIURETIC #60 tablet 08/27/16 08/28/16 Rx Gabapentin Cap/Tab [Neurontin 600 mg PO TID #60 tablet 08/27/16 08/28/16 Rx Cap/Tab] metOLazone [Zaroxolyn] 5 mg PO DAILY tablet 08/27/16 08/28/16 Rx Allergies Allergy/AdvReac Type Severity Reaction Status Date / Time latex Allergy RASH Verified 08/28/16 11:03 Medical,Surgical,& Family Hx - Medical History Genitourinary: History of: Recurring Urinary Tract Infections (previous UTI) Gastrointestinal: History of: GERD Musculoskeletal: History of: Amputation (Left BKA) Hematology: History of: Clotting Problems (Pelvic DVT, Left Lower leg DVT) Other: History of: Miscellaneous Medical Problems (hx drug use == positive opiods, 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 embolectomy& fasciotomy 07/26/16) Neurologic Surgeries: Patient denies: Neurologic Surgery - Family History Family History: Reports;: Family Cancer, Family Stroke Comment Only: Family Diabetes (Yes, mother), Family Heart Disease (Yes, mother& father-- mother had CABG), Family Hypertension (Yes, mother& father), Family Psychiatric Problems (father - bipolar depression) - Social History Smoking Status: Never smoker Frequency of Alcohol Use: None Type of Drug Use: None Exam - Constitutional Vitals: Period Temp Pulse Resp BP Sys/Cuello Pulse Ox Last 24 Hr 98.4 F 83-113 17-20 122-135/80-83 97-100 General appearance: mild distress - Head Head exam: Present: normal inspection - ENT ENT exam: Present: normal exam - Neck Neck exam: Present: normal inspection - Respiratory Respiratory exam: Present: rales, rhonchi - Cardiovascular Cardiovascular exam: Present: RRR - GI/Abdominal GI/Abdominal exam: Present: hypoactive bowel sounds, soft. Absent: tenderness - Extremities Exam Extremities exam: Present: other (There is a high BK amputated wound on the left with Steri-Strips in place. The lateral aspect of the stump has an open area at the apex with some necrotic tissue present there and unclear about the degree of fatty tissue that is seen through the wound at this time. I see no active drainage or cellulitis. A little concerned about some of the skin changes around it at this point whether this represents of early ischemia is unclear.) - Back Exam Back exam: Present: normal inspection - Neurological Exam Neurological exam: Present: alert, oriented X3, CN II-XII intact - Skin Skin exam: Present: normal color, warm, dry 12 point system: reviewed and no additional remarkable complaints except as stated Quality Measures - VTE Contraindication to Pharmacological VTE Prophylaxis: Coagulopathy Results - Labs CBC & BMP: 08/28/16 11:32 08/28/16 11:32 Lab Results: I have reviewed the past 24 hour labs
[2016-08-28] MEDS: HYDROmorphone 2 MG/1 ML VIAL IV PRN (17:56)
[2016-08-28] MEDS ORDERED: SKIN HEALING OINT (AQUAPHOR) 50 GM TUBE TOP PRN (20:05)
[2016-08-28] MEDS: GABAPENTIN 600 MG TABLET PO SCH (20:31)
[2016-08-28] MEDS: DOCUSATE SODIUM 100 MG CAPSULE PO SCH (20:31)
[2016-08-28] MEDS: ALBUTEROL/IPRATROPIUM 3 ML NEB RESP TX SCH (21:17)
[2016-08-28] MEDS: tiZANidine 4 MG TABLET PO SCH (22:04)
[2016-08-29] MEDS: HYDROmorphone 2 MG/1 ML VIAL IV PRN ×4 (00:32→21:37)
[2016-08-29] MEDS: ALBUTEROL/IPRATROPIUM 3 ML NEB RESP TX SCH ×4 (00:37→19:52)
[2016-08-29] MEDS: VANCOMYCIN INJ 1,000 MG in SODIUM CHLORIDE 0.9% 250 ML IV SCH (04:07)
[2016-08-29] MEDS: tiZANidine 4 MG TABLET PO SCH ×5 (05:17→21:46)
[2016-08-29] MEDS: PIPERACILLIN/TAZOBACTAM 3,375 MG in SODIUM CHLORIDE 0.9% 100 ML IV SCH ×3 (05:18→21:36)
[2016-08-29] MEDS: LACTATED RINGERS 1,000 ML IV SCH ×3 (05:35→22:07)
[2016-08-29 07:08] LABS: Basophils # 0.1 10*3/uL (0.0-0.2); Basophils % 0.8 % (0.0-0.8); Eosinophils # 0.4 10*3/uL (0.0-0.87); Hematocrit 37.9 VOL% (35.7-47.0); Immature Granulocytes % 1.5 %; Immature Granulocytes Absolute 0.13 #; Lymphocytes # 1.7 10*3/uL (1.4-4.0); Lymphocytes % 20.3 % (21.3-54.2); Mean Corpuscular HGB Conc 33.2 GM/DL (32-36); Mean Corpuscular Hemoglobin 28 PG (27-34); Mean Corpuscular Volume 83.8 FL (87-102); Mean Platelet Volume 8.6 FL (9.6-12.0); Monocytes # 0.9 10*3/uL (0.11-0.8); Neutrophils # 5.4 10*3/uL (1.4-7.4); Neutrophils % 62.4 % (38.7-73.9); Red Cell Distribution Width 17.4 % (9.3-17.3)
[2016-08-29 07:22] LABS: INR 1.1; PT Patient Result 11.3 SECS; Partial Thromboplastin Time 28.6 SECS (0-40)
[2016-08-29 07:30] LABS: Hemoglobin 12.6 GM/DL (12.0-16.0); Platelet Count 546 T/CUMM (130-400); Red Blood Count 4.52 MC/CUMM (3.8-5.5); White Blood Count 8.6 T/CUMM (4-12)
[2016-08-29 07:49] LABS: Calcium 7.8 MG/DL (8.5-10.1); Osmolality,Calculated 282.4 MOS/KG (273-304); Potassium 3.1 MMOL/L (3.5-5.1)
[2016-08-29] MEDS: ASPIRIN EC 81 MG TABLET PO SCH (09:49)
[2016-08-29] MEDS: FOLIC ACID 1 MG TABLET PO SCH (09:49)
[2016-08-29] MEDS: metOLazone 5 MG TABLET PO SCH (09:49)
[2016-08-29] MEDS: MULTIVITAMIN (INTRINSIC) CAPSULE PO SCH (09:49)
[2016-08-29] MEDS: FUROSEMIDE 80 MG TABLET PO SCH ×2 (09:49→16:36)
[2016-08-29] MEDS: PANTOPRAZOLE 40 MG TABLET PO SCH (09:49)
[2016-08-29] MEDS: GABAPENTIN 600 MG TABLET PO SCH ×3 (09:49→21:36)
[2016-08-29] MEDS: DOCUSATE SODIUM 100 MG CAPSULE PO SCH ×3 (09:49→21:42)
[2016-08-29] MEDS: GENTAMICIN 0.1% OINT 15 GM TUBE TOP SCH ×2 (09:55→21:46)
--- NOTE | 2016-08-29 10:33 | General Surgery Progress Note ---
Assessment and Plan - Time spent with patient Time spent with patient: Less than 30 minutes (1) Status post below knee amputation of left lower extremity Status: Acute Assessment and plan: Impression: 1. Status post below the knee amputation left lower extremity 2. Pain and ischemic changes lateral aspect of the BKA 3. History of ileal femoral occlusive disease 4. Anemia Plan: We will start some local wound care to this area. Transfuse today to get her create up She may need revision of this stopped at some point. 08/29/2016. Patient is stable at this time still with a moderate amount discomfort in the left lower extremity. Still holding her Plavix at this point. She is afebrile we just watching this wound keep her on present antibiotics. Current Visit: Yes Subjective Patient reports: Present: feels better, pain is less, tolerating a regular diet , afebrile Exam - Constitutional Vitals: Period Temp Pulse Resp BP Sys/Cuello Pulse Ox Last 24 Hr 98.1 F-99.1 F 83-113 15-20 94-142/65-89 95-100 General appearance: mild distress - Head Head exam: Present: normal inspection - Neck Neck exam: Present: normal inspection - Respiratory Respiratory exam: Present: clear to auscultation bilaterally, rales - GI/Abdominal GI/Abdominal exam: Present: hypoactive bowel sounds, soft - Extremities Exam Extremities exam: Present: other (Wound care is proceeding to the left BKA) - Back Exam Back exam: Present: normal inspection - Neurological Exam Neurological exam: Present: alert, oriented X3, CN II-XII intact - Skin Skin exam: Present: normal color, warm, dry Results - Labs CBC & BMP: 08/29/16 06:49 08/29/16 06:49 Lab Results: I have reviewed the past 24 hour labs Quality Measures - VTE Contraindication to Pharmacological VTE Prophylaxis: Coagulopathy
[2016-08-29] MEDS: ACETAMINOPHEN 325 MG TABLET PO PRN (10:50)
--- NOTE | 2016-08-29 12:09 | EKG Report ---
Stationary ECG Study [facility] Test Date: 08/29/2016 10:48:50 AM Pat Name: KELLEN MARLOW Department: Room: 333 Gender: F Wood Coater: IRIS : 1960 Requested by: Howard Farrell Order Number: [id number] Reading MD: NORY MUNOZ Intervals Boss Rate: 105 P: 53 AL: 119 QRS: 49 QRSD: 85 T: -2 QT: 334 QTc: 395 Interpretive Statements SINUS TACHYCARDIA WITH SHORT AL INTERVAL ABNORMALITY Electronically Signed On 08-30-16 11:16:42 CLOCK [employer]ER by NORY MUNOZ [email or web address]
[2016-08-30] MEDS: ALBUTEROL/IPRATROPIUM 3 ML NEB RESP TX SCH ×4 (00:30→18:58)
[2016-08-30 03:07] LABS: Basophils # 0.1 10*3/uL (0.0-0.2); Basophils % 0.8 % (0.0-0.8); Eosinophils # 0.5 10*3/uL (0.0-0.87); Eosinophils % 4.6 % (0.00-10.9); Hematocrit 38.1 VOL% (35.7-47.0); Hemoglobin 12.5 GM/DL (12.0-16.0); Immature Granulocytes % 1.2 %; Immature Granulocytes Absolute 0.14 #; Lymphocytes # 2.7 10*3/uL (1.4-4.0); Lymphocytes % 23.9 % (21.3-54.2); Mean Corpuscular HGB Conc 32.8 GM/DL (32-36); Mean Corpuscular Hemoglobin 28 PG (27-34); Mean Platelet Volume 8.5 FL (9.6-12.0); Monocytes # 1.2 10*3/uL (0.11-0.8); Monocytes % 10.8 % (1.7-12.7); Neutrophils # 6.7 10*3/uL (1.4-7.4); Neutrophils % 58.7 % (38.7-73.9); Platelet Count 516 T/CUMM (130-400); Red Blood Count 4.48 MC/CUMM (3.8-5.5); Red Cell Distribution Width 17.2 % (9.3-17.3); White Blood Count 11.4 T/CUMM (4-12)
[2016-08-30 03:33] LABS: Magnesium 1.4 MG/DL (1.8-2.4); Osmolality,Calculated 282.4 MOS/KG (273-304); Potassium 2.8 MMOL/L (3.5-5.1)
[2016-08-30] MEDS: HYDROmorphone 2 MG/1 ML VIAL IV PRN (04:53)
[2016-08-30] MEDS: tiZANidine 4 MG TABLET PO SCH ×4 (04:53→21:55)
[2016-08-30] MEDS: LACTATED RINGERS 1,000 ML IV SCH (05:02)
[2016-08-30] MEDS: PIPERACILLIN/TAZOBACTAM 3,375 MG in SODIUM CHLORIDE 0.9% 100 ML IV SCH ×3 (05:02→21:55)
[2016-08-30] MEDS: GABAPENTIN 600 MG TABLET PO SCH ×3 (09:35→20:20)
[2016-08-30] MEDS: FUROSEMIDE 80 MG TABLET PO SCH ×2 (09:35→16:54)
[2016-08-30] MEDS: MULTIVITAMIN (INTRINSIC) CAPSULE PO SCH (09:35)
[2016-08-30] MEDS: metOLazone 5 MG TABLET PO SCH (09:35)
[2016-08-30] MEDS: ASPIRIN EC 81 MG TABLET PO SCH (09:35)
[2016-08-30] MEDS: FOLIC ACID 1 MG TABLET PO SCH (09:35)
[2016-08-30] MEDS: DOCUSATE SODIUM 100 MG CAPSULE PO SCH ×2 (09:36→20:18)
[2016-08-30] MEDS: PANTOPRAZOLE 40 MG TABLET PO SCH (09:36)
[2016-08-30] MEDS: GENTAMICIN 0.1% OINT 15 GM TUBE TOP SCH (09:37)
[2016-08-30] MEDS: DEXT 5% NACL 0.45% KCL 40 MEQ 40 MEQ/1,000 ML BAG IV SCH ×2 (09:40→20:06)
[2016-08-30] MEDS: POTASSIUM CITRATE 10 MEQ TABLET PO SCH ×3 (09:40→20:19)
--- NOTE | 2016-08-30 09:44 | General Surgery Progress Note ---
Assessment and Plan - Time spent with patient Time spent with patient: Less than 30 minutes (1) Status post below knee amputation of left lower extremity Status: Acute Assessment and plan: Impression: 1. Status post below the knee amputation left lower extremity 2. Pain and ischemic changes lateral aspect of the BKA 3. History of ileal femoral occlusive disease 4. Anemia Plan: We will start some local wound care to this area. Transfuse today to get her create up She may need revision of this stopped at some point. 08/29/2016. Patient is stable at this time still with a moderate amount discomfort in the left lower extremity. Still holding her Plavix at this point. She is afebrile we just watching this wound keep her on present antibiotics. 08/30/2016 Patient generally is doing fairly well unfortunately her potassium down 2.8 so we will try to build that up today. The wound remains stable with some necrotic tissue from the edges as gone need some debridement. Will try to see if Dr. Farfan is back tomorrow and try to transfer her over to him. We will keep her n.p.o. after midnight in case we can plan debridement in the morning. Current Visit: Yes Subjective Patient reports: Present: feels better, still having pain, no bowel movement, afebrile Exam - Constitutional Vitals: Period Temp Pulse Resp BP Sys/Cuello Pulse Ox Last 24 Hr 98.1 F-99.1 F 96-108 18-20 107-140/64-84 93-99 General appearance: mild distress - Head Head exam: Present: normal inspection - ENT ENT exam: Present: normal exam - Neck Neck exam: Present: normal inspection - Respiratory Respiratory exam: Present: rales - Cardiovascular Cardiovascular exam: Present: RRR - GI/Abdominal GI/Abdominal exam: Present: hypoactive bowel sounds, soft - Extremities Exam Extremities exam: Present: other (Wound of the left BKA continues have some necrotic tissue in it so with a little bit of drainage but otherwise in general is clean.) - Neurological Exam Neurological exam: Present: alert, oriented X3, CN II-XII intact - Skin Skin exam: Present: normal color, warm, dry Results - Labs CBC & BMP: 08/30/16 02:29 08/30/16 02:29 Lab Results: I have reviewed the past 24 hour labs Quality Measures - VTE Contraindication to Pharmacological VTE Prophylaxis: Coagulopathy
[2016-08-30] MEDS: oxyCODONE/ACETAMINOPHEN 5-325 MG TABLET PO PRN ×2 (10:48→20:19)
[2016-08-30] MEDS: VANCOMYCIN INJ 1,000 MG in SODIUM CHLORIDE 0.9% 250 ML IV SCH (16:54)
[2016-08-31] MEDS: ALBUTEROL/IPRATROPIUM 3 ML NEB RESP TX SCH ×4 (01:33→20:04)
[2016-08-31] MEDS: oxyCODONE/ACETAMINOPHEN 5-325 MG TABLET PO PRN ×3 (03:11→19:51)
[2016-08-31] MEDS: tiZANidine 4 MG TABLET PO SCH ×4 (04:36→22:49)
[2016-08-31] MEDS: PIPERACILLIN/TAZOBACTAM 3,375 MG in SODIUM CHLORIDE 0.9% 100 ML IV SCH ×3 (05:03→21:35)
[2016-08-31] MEDS: HYDROmorphone 2 MG/1 ML VIAL IV PRN ×7 (05:07→22:49)
[2016-08-31 06:40] LABS: Basophils # 0.1 10*3/uL (0.0-0.2); Basophils % 0.5 % (0.0-0.8); Eosinophils # 0.5 10*3/uL (0.0-0.87); Eosinophils % 4.2 % (0.00-10.9); Hematocrit 40.3 VOL% (35.7-47.0); Hemoglobin 13.3 GM/DL (12.0-16.0); Immature Granulocytes % 0.7 %; Immature Granulocytes Absolute 0.08 #; Lymphocytes # 2.6 10*3/uL (1.4-4.0); Lymphocytes % 21.3 % (21.3-54.2); Mean Corpuscular Hemoglobin 28 PG (27-34); Mean Corpuscular Volume 84.7 FL (87-102); Mean Platelet Volume 8.6 FL (9.6-12.0); Monocytes # 1.3 10*3/uL (0.11-0.8); Monocytes % 10.2 % (1.7-12.7); Neutrophils # 7.8 10*3/uL (1.4-7.4); Neutrophils % 63.1 % (38.7-73.9); Platelet Count 480 T/CUMM (130-400); Red Blood Count 4.76 MC/CUMM (3.8-5.5); Red Cell Distribution Width 17.2 % (9.3-17.3); White Blood Count 12.3 T/CUMM (4-12)
[2016-08-31 07:08] LABS: Calcium 8.1 MG/DL (8.5-10.1); Magnesium 1.4 MG/DL (1.8-2.4); Osmolality,Calculated 283.1 MOS/KG (273-304); Potassium 3.3 MMOL/L (3.5-5.1)
--- NOTE | 2016-08-31 09:00 | Vascular Surgery Consult Note ---
History of Present Illness Chief complaint: eschar left bka stump History of present illness: Ms. Velasquez is a 55 year old female Ms. 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 Apparently was seen by the home health nurse for the first time on Wednesday who felt there was an infection of the lateral aspect of the BKA stump and was transferred here. Cultures are showing Enterobacter cloacae but there is no active ongoing infection there is a bit of purulent drainage at site. There is an area of eschar that is approximately 1 x 1.5 cm on the very lateral aspect of the BKA stump there certainly may be some breakdown of the subcu at that area. This is not significantly changed from the time that she was discharged home but with this admission I think we will go ahead and debride the area today. She is currently on vancomycin both cultures indicate Cipro would be an appropriate antibiotic after debridement today I may be able to trip discharge her home tomorrow. Overall she appears to be doing quite well with good movement of the leg no major infection of the deep tissues and good healing. She agrees with this plan Home Medications Medication Instructions Recorded Confirmed Type Tizanidine HCl [Zanaflex] 2 mg PO Q6H #40 capsule 07/25/16 08/28/16 Rx Albuterol/Ipratropium Neb [Duoneb] 3 ml RESP TX RT Q6H nebulization 08/11/16 Rx solution HYDROcodone/ACETAMIN 10-325 [[place] 1 tablet PO Q6H PRN #30 tablet 08/11/1608/28 Rx 10-325] Multivitamin (Intrinsic) 1 capsule PO DAILY capsule 08/11/16 08/28/16 Rx [Trinsicon] Aspirin EC Tab 81 mg PO DAILY tablet 08/27/16 08/28/16 Rx Clopidogrel [Plavix] 75 mg PO DAILY #30 tablet 08/27/16 08/28/16 Rx Folic Acid Tab 4 mg PO DAILY #30 tablet 08/27/16 08/28/16 Rx Furosemide Tab [Lasix Tab] 160 mg PO BID DIURETIC #60 tablet 08/27/16 08/28/16 Rx Gabapentin Cap/Tab [Neurontin 600 mg PO TID #60 tablet 08/27/16 08/28/16 Rx Cap/Tab] metOLazone [Zaroxolyn] 5 mg PO DAILY tablet 08/27/16 08/28/16 Rx Allergies Allergy/AdvReac Type Severity Reaction Status Date / Time latex Allergy RASH Verified 08/28/16 11:03 Medical,Surgical,& Family Hx - Medical History Genitourinary: History of: Recurring Urinary Tract Infections (previous UTI) Gastrointestinal: History of: GERD Musculoskeletal: History of: Amputation (Left BKA) Hematology: History of: Clotting Problems (Pelvic DVT, Left Lower leg DVT) Other: History of: Miscellaneous Medical Problems (hx drug use == positive opiods, 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 embolectomy& fasciotomy 07/26/16) Neurologic Surgeries: Patient denies: Neurologic Surgery - Family History Family History: Reports;: Family Cancer, Family Stroke Comment Only: Family Diabetes (Yes, mother), Family Heart Disease (Yes, mother& father-- mother had CABG), Family Hypertension (Yes, mother& father), Family Psychiatric Problems (father - bipolar depression) - Social History Smoking Status: Never smoker Frequency of Alcohol Use: None Type of Drug Use: None Exam - Constitutional Vitals: Period Temp Pulse Resp BP Sys/Cuello Pulse Ox Last 24 Hr 97.6 F-98.5 F 92-110 16-20 113-141/65-92 93-98 Quality Measures - VTE Contraindication to Pharmacological VTE Prophylaxis: Coagulopathy Results - Labs CBC & BMP: 08/31/16 05:36 08/31/16 05:36
--- NOTE | 2016-08-31 11:12 | Physician Query Form ---
CLICK EDIT DOCUMENT TO SELECT QUERY ANSWER --> OK --> SIGN Sonya Ugalde RN Clinical [employer] W) [phone] (f) [phone] [email or web address] PROVIDERS: Make your selection(s) from the choices in EACH section by typing an "x" and enter comments in the comment section. Please use your independent medical judgment in providing your response. This request does not imply that any particular answer is desired or expected. CLINICAL INDICATORS: (Providers should not edit this section) Based on documentation of Serum Creatinine from 2.70 to 2.30. GFR form 23 to 28. Treated with NS infusion. followed by LR infusion. Monitored with serial lab checks. Clarify which of the following most accurately represents the patient's renal status: ( ) Acute kidney injury (non-traumatic) ( ) Acute renal failure (x ) Acute renal failure with underlying Chronic Kidney Disease (CKD) - please provide stage below ( ) Acute renal failure with pathological renal lesion ( ) Acute renal failure with necrosis ( ) tubular ( ) medullary ( ) cortical ( ) CKD - please provide stage below ( ) End Stage Renal Disease ( ) Acute interstitial nephritis ( ) Hepatorenal syndrome ( ) Other, please specify: ( ) Clinically unable to determine Chronic Kidney Disease Stages Source: National Kidney Disease Foundation ( ) Stage I (eGFR > or = 90) ( ) Stage II (eGFR 60 - 89) ( ) Stage III (eGFR 30 - 59) (x ) Stage IV (eGFR 15 - 29) ( ) Stage V (eGFR < 15 or dialysis) COMMENTS:Acute on chronic renal failure, Stage IV, based solely on admitting lab , however, please confirm with pt's regular physician, as Dr Ferraro admitted the patient for Dr Farfan and has not seen prior/does not follow the patient. Use of terms such as suspected, likely, or probable (associated with a specific diagnosis that is being evaluated, monitored, or treated as if it exists) are acceptable and can be restated in the discharge summary if not ruled out. MTDD
[2016-08-31] MEDS: PANTOPRAZOLE 40 MG TABLET PO SCH (11:24)
[2016-08-31] MEDS: FUROSEMIDE 80 MG TABLET PO SCH ×2 (11:35→20:37)
[2016-08-31] MEDS: DOCUSATE SODIUM 100 MG CAPSULE PO SCH (11:35)
[2016-08-31] MEDS: ASPIRIN EC 81 MG TABLET PO SCH (11:35)
[2016-08-31] MEDS: POTASSIUM CITRATE 10 MEQ TABLET PO SCH ×3 (11:36→21:36)
[2016-08-31] MEDS: GABAPENTIN 600 MG TABLET PO SCH ×3 (11:36→21:36)
[2016-08-31] MEDS ORDERED: LIDOCAINE 2% 5 ML VIAL ONE (12:20)
[2016-08-31] MEDS ORDERED: PROPOFOL 200 MG/20 ML VIAL IV ONE (12:20)
--- NOTE | 2016-08-31 12:42 | Operative Note ---
Date of procedure: 08/31/16 Procedure: Dr. Farfan operative report Mery Velasquez. Surgeon: Maggie Anesthesia: Low-dose general LMA Preoperative diagnosis: Ischemic lateral aspect of left below-knee amputation with eschar Postoperative diagnosis: Same operation performed debridement of eschar of left below-knee amputation stump Indications this Ron is 55-year-old woman underwent a left below-knee amputation for ischemic gangrene approximately a month ago as developed an ischemic eschar and some ischemia of this underlying subtenons tissue muscle I recommended debridement of explained the alternatives risks and complications which she understands and accepts Description of the procedure: After the induction of LMA anesthesia patient's left leg is prepped with Betadine soap and solution draped in usual fashion there are several remaining 2-0 nylon sutures that are removed there is a minimal eschar more up on the anterior aspect that is excise this is just a bit of skin taken off with sharp dissection I then excised skin and subcutaneous tissue and muscle from the very lateralmost edge of the amputation site getting back to healthy bleeding tissue this was found that there is still opening under the flap this is irrigated copiously and hemostasis was completed with cautery and it is drained with 1/4 inch Amisha drain and closed loosely with 2- 0 nylon mattress sutures blood loss is estimated at 25 cc sponge needle and his counts are correct and the patient taken to recovery in stable condition Surgeon / Physician: Isaias Farfan Results - Labs CBC & BMP: 08/31/16 05:36 08/31/16 05:36 Discharge Plan - Discharge Medications No Action Tizanidine HCl [Zanaflex] 2 mg PO Q6H #40 capsule Albuterol/Ipratropium Neb [Duoneb] 3 ml RESP TX RT Q6H nebulization solution Multivitamin (Intrinsic) [Trinsicon] 1 capsule PO DAILY capsule HYDROcodone/ACETAMIN 10-325 [[place] 10-325] 1 tablet PO Q6H PRN #30 tablet PRN Reason: Pain Moderate (4-7) Gabapentin Cap/Tab [Neurontin Cap/Tab] 600 mg PO TID #60 tablet Aspirin EC Tab 81 mg PO DAILY tablet Clopidogrel [Plavix] 75 mg PO DAILY #30 tablet Folic Acid Tab 4 mg PO DAILY #30 tablet Furosemide Tab [Lasix Tab] 160 mg PO BID DIURETIC #60 tablet metOLazone [Zaroxolyn] 5 mg PO DAILY tablet - Follow Up or Referral - Forms/Instructions
[2016-08-31] MEDS ORDERED: SEVOFLURANE 1 UNIT/15 MINUTE INH ONE (13:01)
[2016-08-31] MEDS ORDERED: fentaNYL 100 MCG/2 ML VIAL ONE (13:01)
[2016-08-31] MEDS ORDERED: MIDAZOLAM 2 MG/2 ML VIAL ONE (13:01)
[2016-08-31] MEDS ORDERED: ONDANSETRON 4 MG/2 ML VIAL IV PRN (13:06)
[2016-08-31] MEDS ORDERED: ONDANSETRON 4 MG/2 ML VIAL ONE (13:07)
[2016-08-31] MEDS ORDERED: HYDROmorphone 2 MG/1 ML VIAL ONE (13:07)
--- NOTE | 2016-08-31 14:16 | Anesthesia ---
Anesthesia Post OP - Post Ansesthetic Evaluation Patient seen in post op: Yes Resp: within normal limits CV: within normal limits Mental: within normal limits Temp: within normal limits [id number]-Gaidiwxbr: within normal limits Nausea and Vomiting: within normal limits Pain: within normal limits
[2016-08-31] MEDS ORDERED: HYDROmorphone 2 MG/1 ML VIAL IV PRN (17:44)
--- NOTE | 2016-08-31 17:45 | Event Note ---
awake and ok
[2016-08-31] MEDS: MULTIVITAMIN (INTRINSIC) CAPSULE PO SCH (18:10)
[2016-08-31] MEDS: metOLazone 5 MG TABLET PO SCH (18:11)
[2016-08-31] MEDS: FOLIC ACID 1 MG TABLET PO SCH (18:11)
[2016-08-31] MEDS: GENTAMICIN 0.1% OINT 15 GM TUBE TOP SCH (20:30)
[2016-08-31] MEDS: ACETAMINOPHEN 325 MG TABLET PO PRN (21:41)
[2016-09-01] MEDS: ALBUTEROL/IPRATROPIUM 3 ML NEB RESP TX SCH ×4 (00:59→20:50)
[2016-09-01] MEDS: DOCUSATE SODIUM 100 MG CAPSULE PO SCH ×3 (01:31→21:04)
[2016-09-01] MEDS: oxyCODONE/ACETAMINOPHEN 5-325 MG TABLET PO PRN ×4 (02:03→21:04)
[2016-09-01 04:21] LABS: Basophils # 0.1 10*3/uL (0.0-0.2); Basophils % 0.6 % (0.0-0.8); Eosinophils # 0.5 10*3/uL (0.0-0.87); Hematocrit 36.4 VOL% (35.7-47.0); Immature Granulocytes % 0.6 %; Immature Granulocytes Absolute 0.06 #; Lymphocytes # 2.4 10*3/uL (1.4-4.0); Lymphocytes % 25.3 % (21.3-54.2); Mean Corpuscular Hemoglobin 28 PG (27-34); Mean Corpuscular Volume 85.2 FL (87-102); Mean Platelet Volume 8.9 FL (9.6-12.0); Monocytes % 10.4 % (1.7-12.7); Neutrophils # 5.6 10*3/uL (1.4-7.4); Neutrophils % 58.1 % (38.7-73.9); Platelet Count 410 T/CUMM (130-400); Red Blood Count 4.27 MC/CUMM (3.8-5.5); Red Cell Distribution Width 17.3 % (9.3-17.3); White Blood Count 9.7 T/CUMM (4-12)
[2016-09-01] MEDS: tiZANidine 4 MG TABLET PO SCH ×4 (04:46→22:50)
[2016-09-01 04:47] LABS: Calcium 8.1 MG/DL (8.5-10.1); Osmolality,Calculated 283.1 MOS/KG (273-304); Potassium 3.4 MMOL/L (3.5-5.1)
[2016-09-01] MEDS: VANCOMYCIN INJ 1,000 MG in SODIUM CHLORIDE 0.9% 250 ML IV SCH (04:47)
[2016-09-01] MEDS: DEXT 5% NACL 0.45% KCL 40 MEQ 40 MEQ/1,000 ML BAG IV SCH ×3 (04:47→05:29)
[2016-09-01] MEDS: PIPERACILLIN/TAZOBACTAM 3,375 MG in SODIUM CHLORIDE 0.9% 100 ML IV SCH (06:11)
[2016-09-01] MEDS: FUROSEMIDE 80 MG TABLET PO SCH ×2 (08:11→17:42)
[2016-09-01] MEDS: HYDROmorphone 2 MG/1 ML VIAL IV PRN ×3 (08:21→23:11)
[2016-09-01] MEDS: POTASSIUM CITRATE 10 MEQ TABLET PO SCH ×3 (09:34→21:04)
[2016-09-01] MEDS: ASPIRIN EC 81 MG TABLET PO SCH (09:34)
[2016-09-01] MEDS: MULTIVITAMIN (INTRINSIC) CAPSULE PO SCH (09:34)
[2016-09-01] MEDS: GABAPENTIN 600 MG TABLET PO SCH ×3 (09:34→21:04)
[2016-09-01] MEDS: metOLazone 5 MG TABLET PO SCH (09:35)
[2016-09-01] MEDS: PANTOPRAZOLE 40 MG TABLET PO SCH (09:35)
[2016-09-01] MEDS: FOLIC ACID 1 MG TABLET PO SCH (12:00)
[2016-09-01] MEDS: GENTAMICIN 0.1% OINT 15 GM TUBE TOP SCH (12:47)
--- NOTE | 2016-09-01 13:48 | Nephrology Progress Note ---
Nephrology - PN: Subj Interval history: Ms. Velasquez is well known to me from her previous hospitalization. She has a nephrotic syndrome and superimposed on that she developed acute renal failure with her illness leading up to left below-knee amputation. She came back in the hospital and had to have debridement of her lateral aspect of her left BKA stump. She is doing extremely well and is having less pain than she was preop. Her creatinine is down now to 2.1 which is the lowest we have seen. I think this represents resolution of her acute renal failure. She is requiring fairly significant doses of diuretics to remain edema free because of her nephrotic syndrome. On exam she is alert and in no distress she has no edema she seems fairly comfortable. She has a left BKA dressing in place that is dry. She is lying flat and in no distress. She should continue with her current diuretics and we will see her as scheduled in the office thank you Exam (PN)-Nephrology - Vital Signs Vital signs: Period Temp Pulse Resp BP Sys/Cuello Pulse Ox Last 24 Hr 97.3 F-98.6 F 88-111 14-20 124-149/75-98 92-99 - Lab 09/01/16 03:41 09/01/16 03:41 Most recent lab results Calcium 8.1 MG/DL (8.5-10.1) L 09/01/16 03:41 Magnesium 1.4 MG/DL (1.8-2.4) L 08/31/16 05:36
[2016-09-01] MEDS: CIPROFLOXACIN 500 MG TABLET PO SCH (21:04)
[2016-09-02] MEDS: DEXT 5% NACL 0.45% KCL 40 MEQ 40 MEQ/1,000 ML BAG IV SCH (00:08)
[2016-09-02] MEDS: ALBUTEROL/IPRATROPIUM 3 ML NEB RESP TX SCH ×3 (01:57→13:25)
[2016-09-02] MEDS: oxyCODONE/ACETAMINOPHEN 5-325 MG TABLET PO PRN ×2 (03:00→09:02)
[2016-09-02 04:02] VITALS: BP 108/77
[2016-09-02] MEDS: tiZANidine 4 MG TABLET PO SCH ×2 (05:13→12:36)
--- NOTE | 2016-09-02 08:13 | Nephrology Progress Note ---
Nephrology - PN: Subj Interval history: Ms. Velasquez is seen in follow-up of her acute renal failure which is improving and her nephrotic syndrome. Her edema is well controlled on her current dose of diuretics I would continue that and she anticipates being discharged today. We will plan to see her as scheduled. Overall she feels much better and is having much less pain since her surgery Exam (PN)-Nephrology - Vital Signs Vital signs: Period Temp Pulse Resp BP Sys/Cuello Pulse Ox Last 24 Hr 98.0 F-98.7 F 79-108 15-20 108-164/77-85 97-100 - Lab 09/01/16 03:41 09/01/16 03:41 Most recent lab results Calcium 8.1 MG/DL (8.5-10.1) L 09/01/16 03:41 Magnesium 1.4 MG/DL (1.8-2.4) L 08/31/16 05:36
[2016-09-02] MEDS: FUROSEMIDE 80 MG TABLET PO SCH (08:57)
[2016-09-02] MEDS: PANTOPRAZOLE 40 MG TABLET PO SCH (08:57)
[2016-09-02] MEDS: GABAPENTIN 600 MG TABLET PO SCH (08:57)
[2016-09-02] MEDS: MULTIVITAMIN (INTRINSIC) CAPSULE PO SCH (08:58)
[2016-09-02] MEDS: POTASSIUM CITRATE 10 MEQ TABLET PO SCH (08:58)
[2016-09-02] MEDS: CIPROFLOXACIN 500 MG TABLET PO SCH (08:58)
[2016-09-02] MEDS: ASPIRIN EC 81 MG TABLET PO SCH (08:58)
[2016-09-02] MEDS: FOLIC ACID 1 MG TABLET PO SCH (08:59)
[2016-09-02] MEDS: DOCUSATE SODIUM 100 MG CAPSULE PO SCH (09:00)
[2016-09-02] MEDS: GENTAMICIN 0.1% OINT 15 GM TUBE TOP SCH (09:00)
[2016-09-02] MEDS: metOLazone 5 MG TABLET PO SCH (09:04)
--- NOTE | 2016-09-02 11:15 | Discharge Summary ---
Hospital Course - Hospital Course Hospital Course: Ms. Velasquez was readmitted after being discharged from rehab last week due to home health nurse being concerned with infection there was a bit of eschar on the lateral most aspect of her BKA stump with some drainage. Cultures grew an interval back to with multiple sensitivities including Cipro. When I returned Wednesday I went ahead and took her to surgery where I debrided the eschar and some of the underlying tissue irrigated and placed a Amisha drain to prevent drainage under the BKA stump otherwise the stump looks fine. She has had no fever chills or other signs of infection here. I will discharge her today and I have instructed her in wound care and expected recovery our long-term plan for prosthesis fitting leave a Amisha drain and 2-0 nylon sutures Cipro 500 mg twice daily for a total of 2 weeks I will give her Percocet 7 for pain and I will see her in approximately 2 weeks Discharge Plan - Discharge Data Disposition: Disch To Home/Self Care Condition at Discharge: Stable Discharge Diet: advance to your usual diet Activity: resume usual activities as tolerated Hygiene: may tub bathe Driving: not until seen by doctor Contact your physician if you experience:: fever over 101, Redness or swelling - Discharge Medications New Ciprofloxacin Tab [Cipro Tab] 500 mg PO Q12HR #30 tablet Oxycodone HCl/Acetaminophen [Percocet 7.5-325 mg Tablet] 1 each PO Q4-6H PRN #30 tablet PRN Reason: pain Continue Tizanidine HCl [Zanaflex] 2 mg PO Q6H #40 capsule Albuterol/Ipratropium Neb [Duoneb] 3 ml RESP TX RT Q6H nebulization solution Multivitamin (Intrinsic) [Trinsicon] 1 capsule PO DAILY capsule Gabapentin Cap/Tab [Neurontin Cap/Tab] 600 mg PO TID #60 tablet Aspirin EC Tab 81 mg PO DAILY tablet Clopidogrel [Plavix] 75 mg PO DAILY #30 tablet Folic Acid Tab 4 mg PO DAILY #30 tablet Furosemide Tab [Lasix Tab] 160 mg PO BID DIURETIC #60 tablet metOLazone [Zaroxolyn] 5 mg PO DAILY tablet Discontinued HYDROcodone/ACETAMIN 10-325 [[place] 10-325] 1 tablet PO Q6H PRN #30 tablet PRN Reason: Pain Moderate (4-7) - Follow Up or Referral Follow Up: Isaias Farfan MD [Physician] - 2 Weeks - Forms/Instructions Exam - Constitutional Vitals: Period Temp Pulse Resp BP Sys/Cuello Pulse Ox Last 24 Hr 98.0 F-98.7 F 79-108 15-20 108-164/77-85 97-100 DS: Provider Date of admission: 08/28/16 11:21 Primary care physician: . No PCP Attending physician on admission: Cleveland Ferraro MD Consults: 08/28/16 14:00 Consult to Pharmacy [CONS] Routine Reason for Pharmacy Consult: Dose/Manage Vancomycin Dose/Manage Antibiotics Home Medication Review Inpatient Med Review 08/28/16 16:33 Consult to Case Mgmt/Social Srvs [CONS] Routine Reason for Case Mgmt/Social Srvs: Rehab Other Home Health Consult Comment: Home situation Consult to Wound Care - [place] [CONS] Routine Reason for Wound Care: Wound Care Management Other Consult Comment: wound care to left BKA 09/01/16 12:50 Consult to Physician [CONS] Routine Comment: patient known to you Consulting Provider: Cleveland Cox Consulting Provider Notified: Yes When should Consulting Provider be notified: Now Person Notified: lorena called Date Notified: 09/01/16 Time Notified: 13:17 Discharging clinician: Isaias Farfan MD
== END 2016-09-02 13:22 | disposition home or self-care (01) | DRG 464 ==
LOC: N.ED 10:51 → N.EDINP 11:21 → N.3E 13:15
PROVIDERS: ADMIT Specialist; ATTEND Surgery

== ENCOUNTER 2016-09-15 15:59 | Inpatient (IN) ==
[2016-09-15 16:44] LABS: Basophils # 0.1 10*3/uL (0.0-0.2); Basophils % 0.3 % (0.0-0.8); Eosinophils # 0.1 10*3/uL (0.0-0.87); Eosinophils % 0.3 % (0.00-10.9); Hematocrit 43.2 VOL% (35.7-47.0); Hemoglobin 14.6 GM/DL (12.0-16.0); Immature Granulocytes % 0.8 %; Immature Granulocytes Absolute 0.13 #; Lymphocytes # 3.2 10*3/uL (1.4-4.0); Lymphocytes % 19.6 % (21.3-54.2); Mean Corpuscular HGB Conc 33.8 GM/DL (32-36); Mean Corpuscular Hemoglobin 29 PG (27-34); Mean Corpuscular Volume 84.7 FL (87-102); Mean Platelet Volume 9.4 FL (9.6-12.0); Monocytes # 1.2 10*3/uL (0.11-0.8); Monocytes % 7.6 % (1.7-12.7); Neutrophils # 11.6 10*3/uL (1.4-7.4); Neutrophils % 71.4 % (38.7-73.9); Platelet Count 537 T/CUMM (130-400); Red Cell Distribution Width 15.9 % (9.3-17.3); White Blood Count 16.3 T/CUMM (4-12)
--- NOTE | 2016-09-15 16:45 | XRay Report ---
XR chest 1V portable Indication: Chest pain, shortness of breath Comparison: 28 August 2016 Findings: The heart and mediastinum are normal in size and configuration. The pulmonary vascularity is normal in caliber. No lung infiltrates, effusions, pneumothorax or other abnormality is demonstrated. Impression: Normal chest x-ray PROCEDURE INTERPRETED AT [facility] DEPARTMENT OF RADIOLOGY Final Report Signed by: Dr. Virgil Harris
[2016-09-15 16:53] LABS: Calcium 9.1 MG/DL (8.5-10.1); Magnesium 2.5 MG/DL (1.8-2.4); Osmolality,Calculated 270.1 MOS/KG (273-304)
[2016-09-15 16:55] LABS: Potassium 2.4 MMOL/L (3.5-5.1)
[2016-09-15 17:06] LABS: Amorphous Crystals,Urine Few /HPF (Few); Apearance,Urine CLOUDY (Clear); Bilirubin,Urine Negative (Negative); Blood, Urine Small mg/dL (Negative); Glucose,Urine (UA) Negative (Negative); Ketones,Urine Negative (Negative); Mucus,Urine Occasional /LPF (Occasional); Nitrite,Urine Negative (Negative); Protein,Urine >=500 MG/DL; Squamous Epithelial Cell,Urine Occasional /HPF (0-10); Urine Color Yellow (Yellow); Urine Urobilinogen < 2.0 EU/DL (0.2-1.0)
[2016-09-15] MEDS ORDERED: POTASSIUM CHLORIDE 20 MEQ TABLET PO STA ×2 (17:10)
[2016-09-15] MEDS ORDERED: POTASSIUM CHLORIDE 20 MEQ TABLET PO ONE (17:11)
[2016-09-15] MEDS ORDERED: POTASSIUM CHLORIDE INJ 40 MEQ in SODIUM CHLORIDE 0.9% 1,000 ML IV STA (17:12)
[2016-09-15 17:13] LABS: Barbiturates Screen,Urine Negative (Negative); Benzodiazepines Screen,Urine Negative (Negative); Cannabinoid Screen,Urine Positive (Negative); Opiate Screen,Urine Positive (Negative); Phencyclidine Screen,Urine Negative (Negative)
[2016-09-15] MEDS ORDERED: SODIUM CHLOR 0.9% KCL 40 MEQ 40 MEQ/1,000 ML BAG IV ONE (17:15)
--- NOTE | 2016-09-15 18:13 | Emergency Department Note ---
Liliane Enriquez Brittany, am scribing for, and in the presence of, Clevelnad Meyer MD 16:41. Mitch Enriquez Robert M, MD, personally performed the services described in this documentation, ascribed by Mehnaz Momin in my presence, and it is both accurate and complete [id number] . Arrival - Arrival Chief Complaint: Non-Specific Stated Complaint: BP low,pulse racing ED Nursing Triage Note: sent from Dr. Cox's office for low b/p and racing pulse. states that she has not been urinating well. had left bka done on 07/[address] Farfan Mode of Arrival: Wheelchair Limitations: No Limitations Source: Patient, Family Time Seen by Provider: 09/15/16 16:29 - History of Present Illness HPI Narrative: This is a 67 y/o black female,who presents to the ED for further evaluation of tachycardia and hypotension. She reports she was at Dr. Cox's office when staff noticed her heart rate to be elevated and she was starting to get hypotensive. Pt complains of weakness now. She denies any blood in her stools. She denies any pain but notes diaphoresis upon mild exertion. She states she had a Left BKA on 07/31/[address] Farfan. Pt has no other complaints/pain in the ED at this time. Pt has as PMHx of GERD, recurring UTIs, pelvic DVT, and left lower Leg DVT. Pt has had a left femoral embolectomy and fasciotomy. Pt had a family medical Hx of cancer, diabetes, heart disease, HTN, psychiatric problems, and stroke. Pt denies a social Hx. Onset (ago): minute(s) (Minutes DIAGNOSTIC RADIOLOGIC TECHNOLOGIST) Consistency: constant Severity: mild, moderate Allergies/Adverse Reactions: Allergies Allergy/AdvReac Type Severity Reaction Status Date / Time latex Allergy RASH Verified 08/28/16 11:03 Home Medications: Home Medications Medication Instructions Recorded Confirmed Type Tizanidine HCl [Zanaflex] 2 mg PO Q6H #40 capsule 07/25/16 09/15/16 Rx Aspirin EC Tab 81 mg PO DAILY tablet 08/27/16 09/15/16 Rx Clopidogrel [Plavix] 75 mg PO DAILY #30 tablet 08/27/16 09/15/16 Rx Folic Acid Tab 4 mg PO DAILY #30 tablet 08/27/16 09/15/16 Rx Gabapentin Cap/Tab [Neurontin 600 mg PO TID #60 tablet 08/27/16 09/15/16 Rx Cap/Tab] metOLazone [Zaroxolyn] 5 mg PO DAILY tablet 08/27/16 09/15/16 Rx Ciprofloxacin Tab [Cipro Tab] 500 mg PO Q12HR #30 tablet 09/02/16 09/15/16 Rx Furosemide Tab [Lasix Tab] 160 mg PO BID 09/15/16 09/15/16 History Hydrocodone/Acetaminophen 1 each PO Q4-6H PRN 09/15/16 09/15/16 History [Hydrocodon-Acetaminophen 5-325] Multivitamins-Min/FA/Ginkgo [One 1 each PO DAILY 09/15/16 09/15/16 History Daily Women's 50+ Tablet] Review of System - Review of System 12 point system: reviewed and no additional remarkable complaints except as stated - Review of System Constitutional: Present: diaphoresis (Diaphoresis with mild exertion), weakness Cardiovascular: Absent: chest pain Gastrointestinal: Absent: abdominal pain, hematochezia Medical,Surgical,& Family Hx - Medical History Genitourinary: History of: Recurring Urinary Tract Infections (previous UTI) Gastrointestinal: History of: GERD Musculoskeletal: History of: Amputation (Left BKA) Hematology: History of: Clotting Problems (Pelvic DVT, Left Lower leg DVT) Other: History of: Miscellaneous Medical Problems (hx drug use == positive opiods, 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 embolectomy& fasciotomy 07/26/16) Neurologic Surgeries: Patient denies: Neurologic Surgery - Family History Family History: Reports;: Family Cancer, Family Stroke Comment Only: Family Diabetes (Yes, mother), Family Heart Disease (Yes, mother& father-- mother had CABG), Family Hypertension (Yes, mother& father), Family Psychiatric Problems (father - bipolar depression) - Social History Smoking Status: Never smoker Frequency of Alcohol Use: None Type of Drug Use: None Exam Vital Signs: Vital Signs Temperature 97.3 F L 09/15/16 16:20 Pulse Rate 97 H 09/15/16 17:15 Respiratory Rate 17 09/15/16 17:15 Blood Pressure 104/70 09/15/16 17:15 O2 Sat by Pulse Oximetry 94 L 09/15/16 17:15 - General General appearance: alert, in no apparent distress - Head Head exam: Present: atraumatic, normocephalic, normal inspection - Eye Eye exam: Present: normal appearance, PERRL, EOMI. Absent: nystagmus, miosis, mydriasis - ENT ENT exam: Present: normal exam, normal oropharynx, mucous membranes moist - Neck Neck exam: Present: normal inspection, full ROM, trachea midline. Absent: tenderness, meningismus, lymphadenopathy, thyromegaly - Chest Chest inspection: Present: normal inspection, symmetric chest wall rise. Absent : tenderness, rash, abscess - Respiratory Respiratory exam: Present: normal lung sounds bilaterally. Absent: prolonged expiratory phase, rales, respiratory distress, rhonchi, stridor - Cardiovascular Cardiovascular exam: Present: regular rate, normal rhythm, normal heart sounds. Absent: murmur, rubs, gallop, clicks - Abdominal Exam Abdominal exam: Present: soft, normal bowel sounds. Absent: distention, tenderness, guarding, rebound, rigidity - Extremities Exam Extremities exam: Present: normal capillary refill, other (Well healing left BKA stump, there is no draining noted. ). Absent: tenderness, joint swelling, calf tenderness - Back Exam Back exam: Present: normal inspection, full ROM. Absent: tenderness, muscle spasm, rashes - Neurological Exam Neurological exam: Present: alert, oriented X3, CN II-XII intact. Absent: motor sensory deficit - Psychiatric Psychiatric exam: Present: normal affect, normal mood. Absent: depressed, agitated, anxious, manic - Skin Skin exam: Present: warm, dry, intact, normal color. Absent: rash, cyanosis, diaphoresis, erythema, pallor, mottled Course - Consultations Consultation #1: The hospitalist service will evaluate and admit the patient. Time: 18:13 Results - Labs CBC & BMP: 09/15/16 16:10 09/15/16 16:10 Lab Results: I have reviewed the patients labs Labs: Lab Results WBC 16.3 T/CUMM (4-12) H 09/15/16 16:10 RBC 5.10 MC/CUMM (3.8-5.5) 09/15/16 16:10 Hgb 14.6 GM/DL (12.0-16.0) 09/15/16 16:10 Hct 43.2 VOL% (35.7-47.0) 09/15/16 16:10 MCV 84.7 FL (87-102) L 09/15/16 16:10 MCH 29 PG (27-34) 09/15/16 16:10 MCHC 33.8 GM/DL (32-36) 09/15/16 16:10 RDW 15.9 % (9.3-17.3) 09/15/16 16:10 Plt Count 537 T/CUMM (130-400) H 09/15/16 16:10 MPV 9.4 FL (9.6-12.0) L 09/15/16 16:10 Neut % (Auto) 71.4 % (38.7-73.9) 09/15/16 16:10 Lymph % (Auto) 19.6 % (21.3-54.2) L 09/15/16 16:10 [place] % (Auto) 7.6 % (1.7-12.7) 09/15/16 16:10 Eos % (Auto) 0.3 % (0.00-10.9) 09/15/16 16:10 Baso % (Auto) 0.3 % (0.0-0.8) 09/15/16 16:10 Neut # (Auto) 11.6 10*3/uL (1.4-7.4) H 09/15/16 16:10 Lymph # (Auto) 3.2 10*3/uL (1.4-4.0) 09/15/16 16:10 [place] # (Auto) 1.2 10*3/uL (0.11-0.8) H 09/15/16 16:10 Eos # (Auto) 0.1 10*3/uL (0.0-0.87) 09/15/16 16:10 Baso # (Auto) 0.1 10*3/uL (0.0-0.2) 09/15/16 16:10 Immature Gran % 0.8 % 09/15/16 16:10 Nucleated RBC % 0.0 /100WBC 09/15/16 16:10 Immature Gran # 0.13 # 09/15/16 16:10 Nucleated RBCs # 0.00 10*3/uL 09/15/16 16:10 Sodium 128 MMOL/L (136-145) L 09/15/16 16:10 Potassium 2.4 MMOL/L (3.5-5.1) L* 09/15/16 16:10 Chloride 72 MMOL/L (98-107) L 09/15/16 16:10 Carbon Dioxide 41 MMOL/L (21-32) H 09/15/16 16:10 Anion Gap 17.4 MMOL/L (5.0-15.0) H 09/15/16 16:10 BUN 41 MG/DL (7-18) H 09/15/16 16:10 Creatinine 2.30 MG/DL (0.55-1.02) H 09/15/16 16:10 GFR Calculation 25 ML/MIN 09/15/16 16:10 BUN/Creatinine Ratio 17.00 RATIO (6.00-20.00) 09/15/16 16:10 Glucose 163 MG/DL (74-106) H 09/15/16 16:10 Calculated Osmolality 270.1 MOS/KG (273-304) L 09/15/16 16:10 Calcium 9.1 MG/DL (8.5-10.1) 09/15/16 16:10 Magnesium 2.5 MG/DL (1.8-2.4) H 09/15/16 16:10 Urine Color Yellow (Yellow) 09/15/16 16:10 Urine Appearance Cloudy (Clear) 09/15/16 16:10 Urine pH 5.0 (4.5-8.0) 09/15/16 16:10 Ur Specific [place] 1.010 (1.001-1.035) 09/15/16 16:10 Urine Protein >=500 MG/DL 09/15/16 16:10 Urine Glucose (UA) Negative mg/dL (Negative) 09/15/16 16:10 Urine Ketones Negative mg/dL (Negative) 09/15/16 16:10 Urine Blood Small mg/dL (Negative) 09/15/16 16:10 Urine Nitrate Negative (Negative) 09/15/16 16:10 Urine Bilirubin Negative mg/dL (Negative) 09/15/16 16:10 Urine Urobilinogen < 2.0 EU/DL (0.2-1.0) H 09/15/16 16:10 Urine Leukocytes Negative Ila/ul (Negative) 09/15/16 16:10 Ur Squamous Epith Cells Occasional /HPF (0-10) 09/15/16 16:10 Amorphous Crystals Few /HPF (Few) 09/15/16 16:10 Urine Mucus Occasional /LPF (Occasional) 09/15/16 16:10 Ur Culture Indicated? Not indicated 09/15/16 16:10 Urine Opiates Screen Positive (Negative) H 09/15/16 16:10 Ur Barbiturates Screen Negative (Negative) 09/15/16 16:10 Ur Phencyclidine Scrn Negative (Negative) 09/15/16 16:10 U Amphetamine/Methamph Negative (Negative) 09/15/16 16:10 U Benzodiazepines Scrn Negative (Negative) 09/15/16 16:10 U Cocaine Metab Screen Negative (Negative) 09/15/16 16:10 U Cannabinoids Screen Positive (Negative) H 09/15/16 16:10 Blood Type O POSITIVE 09/15/16 16:10 Blood Type O POSITIVE 09/15/16 16:10 Disposition Clinical Impression: Orthostatic hypotension, Hypokalemia, Recent left BKA Case discussed with: patient, patient's family Disposition: Disch To Home/Self Care Condition: Stable Time of Disposition: 18:13
[2016-09-15] MEDS ORDERED: POTASSIUM CHLORIDE RIDER 10 MEQ in PREMIX 1 EACH IV PRN (18:17)
--- NOTE | 2016-09-15 18:37 | Hospitalist History & Physical ---
<Jerica Emersonda - Last Filed: 09/15/16 19:09> Assessment and Plan (1) Hypokalemia Status: Acute Assessment and plan: We will correct the hypokalemia. Will recheck lab in AM. Current Visit: Yes (2) Orthostatic hypotension Status: Acute Assessment and plan: The patient is now normotensive; will monitor for further episodes. Current Visit: Yes History of Present Illness Chief complaint: "hypotension/hypokalemia" History of present illness: This is a 56 year-old -[place] female that presented to the ED today with a chief complaint of hypotension and tachycardia. Apparently, she was seen in Dr. Cox's office when she was discovered to he grossly hypotensive and tachycardic. She was advised to report to the Ed for further evaluation. Upon arrival to the ED she remained hypotensive; however she was hypokalemic at 2.3. She will be admitted to the telemetry unit for continuation of care and correction of hypokalemia. A) Home Medications Medication Instructions Recorded Confirmed Type Tizanidine HCl [Zanaflex] 2 mg PO Q6H #40 capsule 07/25/16 09/15/16 Rx Aspirin EC Tab 81 mg PO DAILY tablet 08/27/16 09/15/16 Rx Clopidogrel [Plavix] 75 mg PO DAILY #30 tablet 08/27/16 09/15/16 Rx Folic Acid Tab 4 mg PO DAILY #30 tablet 08/27/16 09/15/16 Rx Gabapentin Cap/Tab [Neurontin 600 mg PO TID #60 tablet 08/27/16 09/15/16 Rx Cap/Tab] metOLazone [Zaroxolyn] 5 mg PO DAILY tablet 08/27/16 09/15/16 Rx Ciprofloxacin Tab [Cipro Tab] 500 mg PO Q12HR #30 tablet 09/02/16 09/15/16 Rx Furosemide Tab [Lasix Tab] 160 mg PO BID 09/15/16 09/15/16 History Hydrocodone/Acetaminophen 1 each PO Q4-6H PRN 09/15/16 09/15/16 History [Hydrocodon-Acetaminophen 5-325] Multivitamins-Min/FA/Ginkgo [One 1 each PO DAILY 09/15/16 09/15/16 History Daily Women's 50+ Tablet] Allergies Allergy/AdvReac Type Severity Reaction Status Date / Time latex Allergy RASH Verified 08/28/16 11:03 Medical,Surgical,& Family Hx - Medical History Cardio: History of: ME, PVD Genitourinary: History of: Recurring Urinary Tract Infections (previous UTI) Gastrointestinal: History of: GERD Musculoskeletal: History of: Amputation (Left BKA) Hematology: History of: Clotting Problems (Pelvic DVT, Left Lower leg DVT) Other: History of: Miscellaneous Medical Problems (hx drug use == positive opiods, 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 embolectomy& fasciotomy 07/26/16) Neurologic Surgeries: Patient denies: Neurologic Surgery - Family History Family History: Reports;: Family Cancer, Family Stroke Comment Only: Family Diabetes (Yes, mother), Family Heart Disease (Yes, mother& father-- mother had CABG), Family Hypertension (Yes, mother& father), Family Psychiatric Problems (father - bipolar depression) - Social History Smoking Status: Never smoker Frequency of Alcohol Use: None Type of Drug Use: None 12 point system: reviewed and no additional remarkable complaints except as stated - Constitutional Constitutional: Absent: fever(s), frequent falls, headache(s), malaise, weight gain, weight loss - EENT Eyes: Present: as per HPI Ears: Present: as per HPI, decreased hearing - Cardiovascular Cardiovascular: Present: as per HPI. Absent: dyspnea, edema, radiating jaw, neck or arm pain, lightheadedness, orthopnea - Respiratory Respiratory: Present: cough - Genitourinary Genitourinary: Present: as per HPI - Musculoskeletal Musculoskeletal: Present: as per HPI - Neurological Neurological: Present: as per HPI - Psychiatric Psychiatric: Present: as per HPI - Endocrine Endocrine: Present: as per HPI - Hematologic/Lymphatic Hematologic/Lymphatic: Present: as per HPI Exam - Constitutional Vitals: Period Temp Pulse Resp BP Sys/Cuello Pulse Ox Last 24 Hr 97.3 F-97.3 F 88-109 16-19 73-115/57-74 94-97 General appearance: normal weight, no acute distress - Head Head exam: Present: normal inspection, normocephalic - Eye Eye exam: Present: EOMI Pupils: Present: MATTIE, normal accommodation - ENT ENT exam: Present: normal exam - Neck Neck exam: Present: normal inspection. Absent: lymphadenopathy, meningismus, thyromegaly - Respiratory Respiratory exam: Present: clear to auscultation bilaterally - Cardiovascular Cardiovascular exam: Present: regular rate and rhythm, tachycardia. Absent: carotid bruit, diastolic murmur, gallop, JVD, systolic murmur - GI/Abdominal GI/Abdominal exam: Present: normal bowel sounds, soft. Absent: firm, guarding, mass, tenderness - Extremities Exam Extremities exam: Present: other (left BKA) - Expanded Left Lower Upper Leg exam: Present: normal inspection Knee exam: Present: normal inspection (L BKA) - Neurological Exam Neurological exam: Present: alert, oriented X3 - Psychiatric Psychiatric exam: Present: normal affect - Skin Skin exam: Present: normal color, warm, dry Results - Labs CBC & BMP: 09/15/16 16:10 09/15/16 16:10 <Dane Zapata - Last Filed: 09/15/16 19:35> History of Present Illness History of present illness: Ms. Velasquez is a 56 year old female Exam - Constitutional Vitals: Period Temp Pulse Resp BP Sys/Cuello Pulse Ox Last 24 Hr 95 15 110/61 94 Results - Labs CBC & BMP: 09/15/16 16:10 09/15/16 16:10
[2016-09-15] MEDS ORDERED: ONDANSETRON 4 MG/2 ML VIAL IV PRN (20:28)
[2016-09-15] MEDS ORDERED: tiZANidine 4 MG TABLET PO PRN (20:28)
[2016-09-15] MEDS ORDERED: DOCUSATE SODIUM 100 MG CAPSULE PO PRN (20:28)
[2016-09-15] MEDS ORDERED: CIPROFLOXACIN 500 MG TABLET PO SCH (21:00)
[2016-09-15] MEDS: ENOXAPARIN 30 MG/0.3 ML SYRINGE SUBCUT SCH (21:48)
[2016-09-15] MEDS: GABAPENTIN 600 MG TABLET PO SCH (21:49)
[2016-09-15] MEDS: ZALEPLON 5 MG CAPSULE PO PRN (21:56)
[2016-09-15] MEDS: SODIUM CHLORIDE 0.9% 1,000 ML IV SCH (21:58)
[2016-09-16] MEDS ORDERED: SODIUM CHLORIDE 0.9% 1,000 ML IV ONE (00:57)
[2016-09-16] MEDS: SODIUM CHLORIDE 0.9% 1,000 ML IV SCH ×3 (06:06→20:56)
[2016-09-16 06:49] LABS: Basophils # 0.1 10*3/uL (0.0-0.2); Basophils % 0.6 % (0.0-0.8); Eosinophils # 0.2 10*3/uL (0.0-0.87); Eosinophils % 2.1 % (0.00-10.9); Immature Granulocytes % 0.7 %; Immature Granulocytes Absolute 0.07 #; Lymphocytes # 2.3 10*3/uL (1.4-4.0); Lymphocytes % 23.5 % (21.3-54.2); Mean Corpuscular HGB Conc 32.3 GM/DL (32-36); Mean Corpuscular Hemoglobin 28 PG (27-34); Mean Corpuscular Volume 87.5 FL (87-102); Mean Platelet Volume 9.5 FL (9.6-12.0); Monocytes # 1.1 10*3/uL (0.11-0.8); Monocytes % 10.6 % (1.7-12.7); Neutrophils # 6.2 10*3/uL (1.4-7.4); Neutrophils % 62.5 % (38.7-73.9); Platelet Count 441 T/CUMM (130-400); Red Cell Distribution Width 16.5 % (9.3-17.3)
[2016-09-16 06:54] LABS: Hemoglobin 11.3 GM/DL (12.0-16.0); White Blood Count 9.9 T/CUMM (4-12)
[2016-09-16 07:28] LABS: Albumin 1.3 G/DL (3.4-5.0); Bilirubin,Total 1.2 MG/DL (0.2-1.0); Calcium 7.6 MG/DL (8.5-10.1); Magnesium 2.2 MG/DL (1.8-2.4); Osmolality,Calculated 283.7 MOS/KG (273-304); Potassium 2.6 MMOL/L (3.5-5.1); Thyroid Stimulating Hormone 2.14 uIU/ml (0.358-3.74); Total Protein 4.7 G/DL (6.4-8.3)
--- NOTE | 2016-09-16 07:46 | EKG Report ---
Stationary ECG Study [facility] Test Date: 09/16/2016 7:46:37 AM Pat Name: KELLEN MARLOW Department: Room: 530 Gender: F [employer]orer [place]: IRIS : 1960 Requested by: Leroy Emerson Order Number: [id number] Reading MD: BECKA MORTON Intervals [place] Rate: 81 P: 70 MT: 146 QRS: 68 QRSD: 99 T: 58 QT: 396 QTc: 434 Interpretive Statements SINUS RHYTHM Electronically Signed On 09-17-16 21:05:29 CDT by BECKA MORTON [email or web address]
--- NOTE | 2016-09-16 08:11 | Hospitalist Progress Note ---
Assessment and Plan (1) Hypokalemic alkalosis Status: Acute Assessment and plan: Associated with use of double diuretics Current Visit: Yes (2) Nephrotic syndrome Status: Chronic Assessment and plan: Urine protein/creatinine ratio 16, otherwise benign urine sediment HIV negative at prior admission Current Visit: Yes (3) Peripheral vascular disease Status: Chronic Assessment and plan: Left BKA 31 July 2016 for acute vascular occlusion of the iliac and distal popliteal vessels. 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 Current Visit: No Hospitalist: Subjective Interval history: 56 yo female diabetic with nephrosis maintained on double diuretics, admitted for weakness and reduced blood pressure with severe and progressive hypokalemic metabolic alkalosis. Oral intake has been preserved without diarrhea. No edema even with serum albumen of 1.3. She had presented acutely on 26 July with critical ischemia of the left lower extremity. Urine drug screen was positive for cocaine with iliac disease and thrombotic distal occlusion with poor run off. A clot at [place] was addressed with femoral embolectomy, however limb salvage could not be obtained after intra-arterial thrombolysis and a left BKA was performed 31 July. She had little in the way of atherosclerosis however beyond elevated homocyteine level thrombophilia was not felt to be supported. Initial creatinine had been elevated with rise after arteriography and interventional procedure her urine protein/creatinine ratio was 16. Exam - Constitutional Vitals: Period Temp Pulse Resp BP Sys/Cuello Pulse Ox Last 24 Hr 9.7 F-98.3 F 77-102 15-20 72-110/40-65 92-97 General appearance: over weight - Respiratory Respiratory exam: Present: clear to auscultation bilaterally. Absent: rales, rhonchi, wheezes - Cardiovascular Cardiovascular exam: Present: regular rate and rhythm - GI/Abdominal GI/Abdominal exam: Present: normal bowel sounds. Absent: tenderness - Extremities Exam Extremities exam: Present: other (left BKA). Absent: edema - Neurological Exam Neurological exam: Present: alert, oriented X3 Results - Labs CBC & BMP: 09/16/16 06:22 09/16/16 06:22 Labs: Serum albumen 1.3 UDS opiates and cannabinoids - Impressions sinus rhythm with TU fusion - Diagnostic Findings Procedure: Chest x-ray: image reviewed by me (Negative) Quality Measures - VTE Contraindication to Pharmacological VTE Prophylaxis: Already on Theraputic Agent , No Prophylaxis Needed
[2016-09-16] MEDS: ASPIRIN EC 81 MG TABLET PO SCH (08:49)
[2016-09-16] MEDS: FOLIC ACID 0.4 MG TABLET PO SCH (08:49)
[2016-09-16] MEDS: MULTIVITAMIN (CENTRUM) TABLET PO SCH (08:49)
[2016-09-16] MEDS: CLOPIDOGREL 75 MG TABLET PO SCH (08:49)
[2016-09-16] MEDS: GABAPENTIN 600 MG TABLET PO SCH ×3 (08:49→20:54)
[2016-09-16] MEDS: PANTOPRAZOLE 40 MG TABLET PO SCH (08:49)
[2016-09-16] MEDS: POTASSIUM CHLORIDE 20 MEQ TABLET PO SCH ×4 (08:54→20:55)
--- NOTE | 2016-09-16 09:28 | EKG Report ---
Stationary ECG Study [facility] ER Test Date: 09/15/2016 4:15:02 PM Pat Name: KELLEN MARLOW Department: Room: 530 Gender: F Presser [place]: DARREL Sin : 1960 Requested by: Cleveland Meyer Order Number: [id number] Reading MD: NORY MUNOZ Intervals [place] Rate: 96 P: 66 CT: 136 QRS: 67 QRSD: 93 T: 64 QT: 461 QTc: 515 Interpretive Statements SINUS RHYTHM MODERATE ST DEPRESSION PROLONGED QT INTERVAL LEFT ATRIAL ABNORMALITY Electronically Signed On 09-16-16 20:24:21 CDT by NORY MUNOZ [email or web address]
--- NOTE | 2016-09-16 13:12 | Nephrology Consult Note ---
History of Present Illness History of present illness: Ms. Velasquez is a 56 year old female with recent acute renal failure following rhabdomyolysis and hypotension with ultimate loss of her left leg. She has a significant underlying nephrotic syndrome and is not undergone biopsy at this point due to her critical illness over the last 2 months and need for ongoing Plavix. She remains nephrotic and has been on significant diuretic therapy in order to control her edema. She did not show for her scheduled follow-up appointment in our office. She presented with hypotension and hypokalemia related to overdiuresis. Currently she has no edema she feels much better after receiving fluid resuscitation and potassium. She is able to sit up and is not having any difficulty at present. She is status post left below-knee amputation. Laboratory reveals a continued improvement in creatinine over the last couple months. Admission potassium was 2.4. Impression hypotension and hypokalemia secondary to overdiuresis #2 nephrotic syndrome #3 recovering acute renal failure #4 recent rhabdomyolysis from an ischemic left leg #5 recent left leg amputation Plan I think we can slow her IV fluids. I did continue with the potassium replacement as you are doing. She will certainly need diuretics to maintain a reasonable weight and we will try to do that with Lasix alone though this was not successful in the past. She has been encouraged to follow-up as scheduled so that we can monitor her weight and potassium Home Medications Medication Instructions Recorded Confirmed Type Tizanidine HCl [Zanaflex] 2 mg PO Q6H #40 capsule 07/25/16 09/15/16 Rx Aspirin EC Tab 81 mg PO DAILY tablet 08/27/16 09/15/16 Rx Clopidogrel [Plavix] 75 mg PO DAILY #30 tablet 08/27/16 09/15/16 Rx Folic Acid Tab 4 mg PO DAILY #30 tablet 08/27/16 09/15/16 Rx Gabapentin Cap/Tab [Neurontin 600 mg PO TID #60 tablet 08/27/16 09/15/16 Rx Cap/Tab] metOLazone [Zaroxolyn] 5 mg PO DAILY tablet 08/27/16 09/15/16 Rx Ciprofloxacin Tab [Cipro Tab] 500 mg PO Q12HR #30 tablet 09/02/16 09/15/16 Rx Furosemide Tab [Lasix Tab] 160 mg PO BID 09/15/16 09/15/16 History Hydrocodone/Acetaminophen 1 each PO Q4-6H PRN 09/15/16 09/15/16 History [Hydrocodon-Acetaminophen 5-325] Multivitamins-Min/FA/Ginkgo [One 1 each PO DAILY 09/15/16 09/15/16 History Daily Women's 50+ Tablet] Allergies Allergy/AdvReac Type Severity Reaction Status Date / Time latex Allergy RASH Verified 08/28/16 11:03 Medical,Surgical,& Family Hx - Medical History Cardio: History of: [place], PVD Genitourinary: History of: Recurring Urinary Tract Infections (previous UTI) Gastrointestinal: History of: GERD Musculoskeletal: History of: Amputation (Left BKA) Hematology: History of: Clotting Problems (Pelvic DVT, Left Lower leg DVT) Other: History of: Miscellaneous Medical Problems (hx drug use == positive opiods, 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 embolectomy& fasciotomy 07/26/16) Neurologic Surgeries: Patient denies: Neurologic Surgery - Family History Family History: Reports;: Family Cancer, Family Stroke Comment Only: Family Diabetes (Yes, mother), Family Heart Disease (Yes, mother& father-- mother had CABG), Family Hypertension (Yes, mother& father), Family Psychiatric Problems (father - bipolar depression) - Social History Smoking Status: Never smoker Frequency of Alcohol Use: None Type of Drug Use: None Review of Systems 12 point system: reviewed and no additional remarkable complaints except as stated Exam - Vital Signs Vital signs: Period Temp Pulse Resp BP Sys/Cuello Pulse Ox Last 24 Hr 9.7 F-98.3 F 77-102 15-20 72-110/40-73 91-97 - General Appearance General appearance: well-developed, well-nourished, appears started age EENT: ATNC Neck: no JVD, no thyromegaly, no carotid bruit, supple Respiratory: no kyphosis, no scoliosis Cardiology: no murmurs, no rub, no gallops, no edema, regular rate, regular rhythm, normal S1, normal S2 Gastrointestinal: normoactive bowel sounds, no tenderness Integumentary: no rash, warm and dry Neurologic: no focal deficit, no asterixis, alert and oriented x3, reflexes 2+ and symmetric, gait normal, strength 5/5 Musculoskeletal: no deformities, no erythema, no cyanosis, no clubbing Psychiatric: mood/affect appropriate, cooperative Additional exam: Status post below-knee amputation on the left. Results - Labs CBC & BMP: 09/16/16 06:22 09/16/16 06:22 Assessment and Plan - Time spent with patient Time spent with patient: Greater than 30 minutes (1) Renal failure (ARF), acute on chronic Status: Acute Current Visit: No (2) Hypokalemia Status: Acute Assessment and plan: Continue potassium replacement Current Visit: Yes
[2016-09-16] MEDS: ZALEPLON 5 MG CAPSULE PO PRN (20:55)
[2016-09-16] MEDS: ENOXAPARIN 30 MG/0.3 ML SYRINGE SUBCUT SCH (20:55)
[2016-09-17 07:05] LABS: Calcium 7.4 MG/DL (8.5-10.1); Osmolality,Calculated 290.8 MOS/KG (273-304); Potassium 3.3 MMOL/L (3.5-5.1)
--- NOTE | 2016-09-17 08:22 | Hospitalist Progress Note ---
Assessment and Plan (1) Hypokalemic alkalosis Status: Acute Assessment and plan: Associated with use of double diuretics Current Visit: Yes (2) Nephrotic syndrome Status: Chronic Assessment and plan: Urine protein/creatinine ratio 16, otherwise benign urine sediment HIV negative at prior admission Current Visit: Yes (3) Peripheral vascular disease Status: Chronic Assessment and plan: Left BKA 31 July 2016 for acute vascular occlusion of the iliac and distal popliteal vessels. 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 Current Visit: No Hospitalist: Subjective Interval history: 56 yo female nephrotic syndrome with admission hypokalemic metabolic alkalosis associated with pre-renal changes. On double diuretics with very low albumen levels and unreliable follow-up. Has improved but still with residual hypokalemia and awaiting final determination on her outpatient diuretic regimen. Vitals stable and no complaint this morning. Exam - Constitutional Vitals: Period Temp Pulse Resp BP Sys/Cuello Pulse Ox Last 24 Hr 97.3 F-98.8 F 86-94 18-20 96-105/52-73 95-97 General appearance: over weight - Respiratory Respiratory exam: Present: clear to auscultation bilaterally. Absent: rales, rhonchi, wheezes - Cardiovascular Cardiovascular exam: Present: regular rate and rhythm - GI/Abdominal GI/Abdominal exam: Present: normal bowel sounds. Absent: tenderness - Extremities Exam Extremities exam: Absent: edema - Neurological Exam Neurological exam: Present: alert, oriented X3 Results - Labs CBC & BMP: 09/16/16 06:22 09/17/16 06:01 Quality Measures - VTE Contraindication to Pharmacological VTE Prophylaxis: Already on Theraputic Agent , No Prophylaxis Needed
--- NOTE | 2016-09-17 08:48 | Nephrology Progress Note ---
Nephrology - PN: Subj Interval history: Ms. Velasquez is seen in follow-up of her volume depletion secondary to diuretics. Her potassium is 3.3 much better today. We are going to begin 20 mEq KCl twice daily. She has no edema but feels well when she stands so we will stop her IV fluids. I do think that she will continue to need diuretics in the presence of her nephrotic syndrome. We will probably start those tomorrow and hopefully she can be managed with Lasix alone rather than Lasix and Zaroxolyn. She probably will be able to be discharged tomorrow and we can follow her as an outpatient we have emphasized the need to follow-up in our office to follow weights and lab. At some point she will need a kidney biopsy but she is taking Plavix right now and needs to continue that with her recent limb loss. Exam (PN)-Nephrology - Vital Signs Vital signs: Period Temp Pulse Resp BP Sys/Cuello Pulse Ox Last 24 Hr 97.3 F-98.8 F 82-94 16-20 85-114/52-74 95-97 - Lab 09/16/16 06:22 09/17/16 06:01 Most recent lab results Calcium 7.4 MG/DL (8.5-10.1) L 09/17/16 06:01 Magnesium 2.2 MG/DL (1.8-2.4) 09/16/16 06:22 Assessment and Plan (1) Renal failure (ARF), acute on chronic Status: Acute Current Visit: No (2) Hypokalemia Status: Acute Assessment and plan: Continue potassium replacement Current Visit: Yes Specialty Discharge - Follow Up or Referrals
[2016-09-17] MEDS: FOLIC ACID 0.4 MG TABLET PO SCH (08:59)
[2016-09-17] MEDS: PANTOPRAZOLE 40 MG TABLET PO SCH (08:59)
[2016-09-17] MEDS: GABAPENTIN 600 MG TABLET PO SCH ×3 (08:59→20:34)
[2016-09-17] MEDS: CLOPIDOGREL 75 MG TABLET PO SCH (08:59)
[2016-09-17] MEDS: ASPIRIN EC 81 MG TABLET PO SCH (08:59)
[2016-09-17] MEDS: MULTIVITAMIN (CENTRUM) TABLET PO SCH (08:59)
[2016-09-17] MEDS: POTASSIUM CHLORIDE 20 MEQ TABLET PO SCH ×5 (09:04→20:35)
[2016-09-17] MEDS: ENOXAPARIN 30 MG/0.3 ML SYRINGE SUBCUT SCH (20:34)
[2016-09-17] MEDS: ZALEPLON 5 MG CAPSULE PO PRN (20:56)
[2016-09-18 07:23] LABS: Calcium 7.6 MG/DL (8.5-10.1); Magnesium 2.1 MG/DL (1.8-2.4); Osmolality,Calculated 290.7 MOS/KG (273-304); Potassium 4.2 MMOL/L (3.5-5.1)
--- NOTE | 2016-09-18 08:13 | Discharge Summary ---
<Jerica Emersonda - Last Filed: 09/18/16 08:42> Hospital Course - Hospital Course Hospital Course: This is a 56 year-old -[place] female that presented to the ED 09/15 with a chief complaint of hypotension and tachycardia. The patient has an impressive medical history which includes: GERD, PVD, CKD,chronic urinary tract infections, and deep vein thrombosis to the pelvis and left lower leg. The patient had a recent left femoral embolectomy, fasciotomy and subsequent left below the knee amputation.Apparently, she was seen in Dr. Cox's office on that day when she was discovered to he grossly hypotensive and tachycardic. She was advised to report to the Ed for further evaluation. Upon arrival to the ED she remained hypotensive; however she was hypokalemic at 2.3. She was admitted to the telemetry unit for continuation of care for volume depletion secondary to diuretics and correction of hypokalemia. Nephrology was consulted to assist in the management of the patient. Her condition has improved greatly since admission. Today we feel that she is appropriate for discharge with follow-up with her PCP and Nephrology as directed. Diagnosis - Discharge Diagnosis (1) Hypokalemia Status: Acute (2) Orthostatic hypotension Status: Acute Specialty Discharge - Follow Up or Referrals Follow up with: Cleveland Cox MD [Physician] - 1 Month (Pt to see in clinic on October 12 @10: 15) Discharge Plan - Discharge Data Disposition: Disch To Home/Self Care - Discharge Medications New Furosemide Tab [Lasix Tab] 160 mg PO DAILY #60 tablet Potassium Chloride Cap/Tab [K Dur] 20 meq PO BID #60 tablet Continue Tizanidine HCl [Zanaflex] 2 mg PO Q6H #40 capsule Multivitamins-Min/FA/Ginkgo [One Daily Women's 50+ Tablet] 1 each PO DAILY Hydrocodone/Acetaminophen [Hydrocodon-Acetaminophen 5-325] 1 each PO Q4-6H PRN PRN Reason: Pain Gabapentin Cap/Tab [Neurontin Cap/Tab] 600 mg PO TID #60 tablet Aspirin EC Tab 81 mg PO DAILY tablet Clopidogrel [Plavix] 75 mg PO DAILY #30 tablet Folic Acid Tab 4 mg PO DAILY #30 tablet Discontinued Furosemide Tab [Lasix Tab] 160 mg PO BID Ciprofloxacin Tab [Cipro Tab] 500 mg PO Q12HR #30 tablet metOLazone [Zaroxolyn] 5 mg PO DAILY tablet - Follow Up or Referral Follow Up: Cleveland Cox MD [Physician] - 1 Month (Pt to see in clinic on October 12 @10: 15) - Forms/Instructions Instructions: Hypokalemia (DC), Syncope (DC), Hypotension (DC) Exam - Constitutional Vitals: Period Temp Pulse Resp BP Sys/Cuello Pulse Ox Last 24 Hr 97.6 F-99.2 F 81-94 16-19 99-114/53-70 96-99 Discharge Results Labs on day of discharge: Labs from last 24 hours 09/18/16 05:54 Sodium 145 Potassium 4.2 Chloride 108 H Carbon Dioxide 25 Anion Gap 16.2 H BUN 22 H Creatinine 1.20 H GFR Calculation 61 BUN/Creatinine Ratio 18.00 Glucose 96 Calculated Osmolality 290.7 Calcium 7.6 L Magnesium 2.1 DS: Provider Date of admission: 09/15/16 18:12 Primary care physician: . No PCP Attending physician on admission: Michael French MD Consults: 09/15/16 20:28 Consult to Physician [CONS] Routine Comment: Consulting Provider: Cleveland Cox Person Notified: Date Notified: 09/16/16 Time Notified: 10:15 09/15/16 20:34 Consult to Pharmacy [CONS] Routine Reason for Pharmacy Consult: Adjust Meds Renal Funct 09/17/16 14:50 Consult to Case Mgmt/Social Srvs [CONS] Routine Reason for Case Mgmt/Social Srvs: Equipment Consult Comment: Bedside commode chair for home Discharging clinician: Dmitriy Emerson CNP <Leonidas Powers - Last Filed: 09/18/16 12:15> Hospital Course - Hospital Course Hospital Course: I evaluated this patient and completed an independent examination. I coordinated care with ELIZABETH Marcelo. I agree with the documentation that she provides below. - Time spent with patient Time with patient DS: Greater than 30 minutes (Total discharge time for this patient, including gdli-xo-[id number] time, clinical documentation, medication reconciliation, and discharge planning was 33 minutes.) Diagnosis - Discharge Diagnosis (1) Hypokalemia Status: Acute (2) Orthostatic hypotension Status: Acute (3) Nephrotic syndrome Status: Chronic (4) Renal failure (ARF), acute on chronic Status: Acute (5) Status post below knee amputation of left lower extremity Status: Acute (6) Peripheral vascular disease Status: Chronic Discharge Plan - Discharge Data Condition at Discharge: Stable Discharge Diet: advance to your usual diet Activity: resume usual activities as tolerated Hygiene: no restrictions Contact your physician if you experience:: fever over 101, pain uncontrolled by pain medications Exam - Constitutional General appearance: no acute distress - Head Head exam: Present: normal inspection, normocephalic, atraumatic - Respiratory Respiratory exam: Present: clear to auscultation bilaterally - Cardiovascular Cardiovascular exam: Present: regular rate and rhythm - GI/Abdominal GI/Abdominal exam: Present: normal bowel sounds, soft. Absent: tenderness, rebound - Neurological Exam Neurological exam: Present: alert, oriented X3 - Psychiatric Psychiatric exam: Present: normal affect, normal mood - Skin Skin exam: Present: normal color, warm DS: Provider Expected date of discharge: 09/18/16
[2016-09-18] MEDS: ASPIRIN EC 81 MG TABLET PO SCH (08:27)
[2016-09-18] MEDS: FOLIC ACID 0.4 MG TABLET PO SCH (08:28)
[2016-09-18] MEDS: POTASSIUM CHLORIDE 20 MEQ TABLET PO SCH (08:28)
[2016-09-18] MEDS: CLOPIDOGREL 75 MG TABLET PO SCH (08:28)
[2016-09-18] MEDS: PANTOPRAZOLE 40 MG TABLET PO SCH (08:28)
[2016-09-18] MEDS: MULTIVITAMIN (CENTRUM) TABLET PO SCH (08:28)
[2016-09-18] MEDS: GABAPENTIN 600 MG TABLET PO SCH (08:28)
--- NOTE | 2016-09-18 08:35 | Nephrology Progress Note ---
Nephrology - PN: Subj Interval history: Ms. Velasquez is seen in follow-up of her nephrotic syndrome and recovery from acute renal failure. Her electrolytes are now much improved following IV hydration and potassium repletion. We have discussed her care with Dr. Tellez and she will be discharged today and hopefully she will return to our clinic on next week so that we can assess her volume status and potassium. Her weight at discharge is 75 kg and at that way she has no edema. Potassium 4.4 and her creatinine is 1.2. She will require a renal biopsy at some point. We have discussed use of Plavix with her and prior to biopsy will stop it for 5- 7 days but for right now we will continue with the diuresis. She has been off her diuretic since being here and we are going to resume them at 160 of Lasix each morning none in the evening and she will hold her metolazone. We will decide next week whether that is an adequate dose of diuretics and probably have to increase the dose. Exam (PN)-Nephrology - Vital Signs Vital signs: Period Temp Pulse Resp BP Sys/Cuello Pulse Ox Last 24 Hr 97.6 F-99.2 F 81-94 16-19 99-114/53-70 96-99 - Lab 09/16/16 06:22 09/18/16 05:54 Most recent lab results Calcium 7.6 MG/DL (8.5-10.1) L 09/18/16 05:54 Magnesium 2.1 MG/DL (1.8-2.4) 09/18/16 05:54 Assessment and Plan (1) Renal failure (ARF), acute on chronic Status: Acute Current Visit: No (2) Hypokalemia Status: Acute Assessment and plan: Continue potassium replacement Current Visit: Yes Specialty Discharge - Follow Up or Referrals Follow up with: Cleveland Cox MD [Physician] -
[2016-09-18 08:58] VITALS: BP 128/67
== END 2016-09-18 10:15 | disposition home or self-care (01) | DRG 683 ==
LOC: N.ED 15:59 → N.EDINP 18:12 → SUATTDRO 18:12 → N.5E 19:34
PROVIDERS: ADMIT Internal Medicine Cardiovascular Disease; ATTEND Family Medicine